=== PATIENT | female | born 1965 | race American Indian/Alaskan Native ===

== ENCOUNTER 2017-05-12 08:50 | Emergency (ER) | payer OTHER ==
[2017-05-12 09:58] LABS: Basophils % (Auto) 1.2 % (0.0-1.8); Eosinophils % (Auto) 2.6 % (0.0-4.3); Hematocrit 44.1 % (30.3-42.9); Hemoglobin 14.1 gm/dl (10.1-14.3); Mean Corpuscular HGB Conc 32 % (30-34); Mean Corpuscular Hemoglobin 29 pg (28-32); Mean Corpuscular Volume 92 fl (79-97); Platelet Count 282 K/mm3 (140-440); Red Cell Distribution Width 13.9 % (13.2-15.2); White Blood Count 8.3 K/mm3 (4.5-11.0)
[2017-05-12 10:06] LABS: Anion Gap 21 mmol/L; BUN/Creatinine Ratio 14.44; Blood Urea Nitrogen 13 mg/dL (7-17); Calcium 9.4 mg/dL (8.4-10.2); Carbon Dioxide 23 mmol/L (22-30); Chloride 101.4 mmol/L (98-107); Glucose 138 mg/dL (65-100); Potassium 3.8 mmol/L (3.6-5.0); Sodium 142 mmol/L (137-145)
--- NOTE | 2017-05-12 10:27 | XRay Report ---
ROUTINE CHEST, TWO VIEWS: HISTORY: Shortness of breath. The trachea, heart, mediastinal contour, lung malik and bony thorax are unremarkable. IMPRESSION: Unremarkable chest x-ray.
[2017-05-12] MEDS ORDERED: XOPENEX IH ONE (11:31)
[2017-05-12] MEDS ORDERED: ATROVENT IH ONE (11:31)
--- NOTE | 2017-05-12 11:36 | Emergency Department Report ---
ED Shortness of Breath HPI - General Chief Complaint: Dyspnea/Respdistress Stated Complaint: SHORTNESS OF BREATH AND HYPERTENSION Time Seen by Provider: 05/12/17 11:23 Source: patient Mode of arrival: Ambulatory Limitations: Physical Limitation - History of Present Illness Initial Comments: 52 years old female morbidly obese history of high blood pressure and bronchitis came today with shortness of breath, being going on for 2 weeks, stated that she is getting worse in the last 2-3 days. Patient denied any chest pain. No fever. admitted to have Cough productive of greenish sputum. MD Complaint: shortness of breath, cough -: Gradual Pain Scale: 5 Improves With: bronchodilators - Related Data Previous Rx's Medication Instructions Recorded Last Taken Type ALBUTEROL Inhaler [ProAir HFA 2 puff IH QID PRN #1 inhalation 05/12/17 Unknown Rx Inhaler] Amoxicillin [Amoxicillin TAB] 875 mg PO BID #14 tablet 05/12/17 Unknown Rx Ondansetron [Zofran Odt] 4 mg PO Q8HR PRN #14 tab.rapdis 05/12/17 Unknown Rx Prednisone [predniSONE 10 mg 10 mg PO .TAPER #1 tab.ds.pk 05/12/17 Unknown Rx (6-Day Pack, 21 Tabs)] traMADol [Ultram 50 MG tab] 50 mg PO Q4HR PRN #14 tablet 05/12/17 Unknown Rx Allergies Allergy/AdvReac Type Severity Reaction Status Date / Time No Known Allergies Allergy Unverified 05/12/17 09:15 ED Review of Systems ROS: Stated complaint: SHORTNESS OF BREATH AND HYPERTENSION Other details as noted in HPI Comment: All other systems reviewed and negative Constitutional: denies: chills, fever Respiratory: cough, shortness of breath, SOB with exertion. denies: orthopnea, SOB at rest Cardiovascular: dyspnea on exertion. denies: chest pain, palpitations, orthopnea Gastrointestinal: denies: abdominal pain, nausea Musculoskeletal: denies: back pain Neurological: denies: headache, weakness, numbness, paresthesias, confusion ED Past Medical Hx - Past Medical History Previous Medical History?: Yes Hx Hypertension: Yes Additional medical history: Knee pain, headache pain - Surgical History Past Surgical History?: Yes Additional Surgical History: Fibroids removed, right fingers surgery - Social History Smoking Status: Former Smoker Substance Use Type: Prescribed - Medications Home Medications: Home Medications Medication Instructions Recorded Confirmed Last Taken Type ALBUTEROL Inhaler [ProAir HFA 2 puff IH QID PRN #1 inhalation 05/12/17 Unknown Rx Inhaler] Amoxicillin [Amoxicillin TAB] 875 mg PO BID #14 tablet 05/12/17 Unknown Rx Ondansetron [Zofran Odt] 4 mg PO Q8HR PRN #14 tab.rapdis 05/12/17 Unknown Rx Prednisone [predniSONE 10 mg 10 mg PO .TAPER #1 tab.ds.pk 05/12/17 Unknown Rx (6-Day Pack, 21 Tabs)] traMADol [Ultram 50 MG tab] 50 mg PO Q4HR PRN #14 tablet 05/12/17 Unknown Rx ED Physical Exam - General Limitations: Physical Limitation General appearance: alert, in no apparent distress - Eye Eye exam: Present: normal appearance - ENT ENT exam: Present: normal exam - Neck Neck exam: Present: normal inspection - Respiratory Respiratory exam: Present: normal lung sounds bilaterally, wheezes, rhonchi, decreased breath sounds, prolonged expiratory. Absent: respiratory distress, rales, stridor, chest wall tenderness, accessory muscle use - Cardiovascular Cardiovascular Exam: Present: tachycardia - GI/Abdominal GI/Abdominal exam: Present: soft. Absent: distended, tenderness, guarding, rebound - Extremities Exam Extremities exam: Present: normal inspection - Back Exam Back exam: Present: normal inspection. Absent: CVA tenderness (R), CVA tenderness (L) - Neurological Exam Neurological exam: Present: alert, oriented X3, CN II-XII intact - Skin Skin exam: Present: warm, normal color ED Course Vital Signs 05/12/17 05/12/17 05/12/17 09:15 11:24 11:41 Temperature 98.2 F Pulse Rate 114 H 81 Pulse Rate [ Bilateral Upper Lobe] Respiratory 22 11 L Rate Respiratory Rate [Bilateral Upper Lobe] Blood Pressure 229/125 175/119 Blood Pressure [Left] O2 Sat by Pulse 92 98 Oximetry 05/12/17 05/12/17 05/12/17 11:43 11:51 12:50 Temperature Pulse Rate 81 84 Pulse Rate [ 85 88 Bilateral Upper Lobe] Respiratory 18 18 Rate Respiratory 20 20 Rate [Bilateral Upper Lobe] Blood Pressure Blood Pressure 175/118 176/103 [Left] O2 Sat by Pulse 100 97 Oximetry 05/12/17 13:28 Temperature Pulse Rate 84 Pulse Rate [ Bilateral Upper Lobe] Respiratory 20 Rate Respiratory Rate [Bilateral Upper Lobe] Blood Pressure Blood Pressure 166/94 [Left] O2 Sat by Pulse 96 Oximetry - Reevaluation(s) Reevaluation #1: 05/12/17 13:36 Patient stated that she is feeling much better. On exam, patient is moving air very good no wheezing no respiratory distress. ED Medical Decision Making - Lab Data Result diagrams: 05/12/17 09:35 05/12/17 09:35 - EKG Data -: EKG Interpreted by Me EKG shows normal: sinus rhythm Rate: normal - EKG Data When compared to previous EKG there are: no significant change Interpretation: no acute changes - Radiology Data Radiology results: report reviewed Chest x-ray was no acute abnormality - Medical Decision Making The patient stated that she is feeling better. I believe this is a acute bronchitis patient improved with bronchodilators chest x-ray did not show any pneumonia I will discharge patient home with his albuterol, prednisone, amoxicillin. Patient asked for pain medicine for chronic knee pain. Critical care attestation.: If time is entered above; I have spent that time in minutes in the direct care of this critically ill patient, excluding procedure time. ED Disposition Clinical Impression: Shortness of breath, Acute bronchitis Disposition: DC-01 TO HOME OR SELFCARE Is pt being admited?: No Condition: Stable Instructions: Acute Bronchitis (ED) Prescriptions: ALBUTEROL Inhaler [ProAir HFA Inhaler] 2 puff IH QID PRN #1 inhalation PRN Reason: Shortness Of Breath Amoxicillin [Amoxicillin TAB] 875 mg PO BID #14 tablet Ondansetron [Zofran Odt] 4 mg PO Q8HR PRN #14 tab.rapdis PRN Reason: Nausea And Vomiting Prednisone [predniSONE 10 mg (6-Day Pack, 21 Tabs)] 10 mg PO .TAPER #1 tab.ds.pk traMADol [Ultram 50 MG tab] 50 mg PO Q4HR PRN #14 tablet PRN Reason: Pain Referrals: PRIMARY CARE,MD [Primary Care Provider] - 3-5 Days
[2017-05-12] MEDS ORDERED: CATAPRES ONE (11:37)
[2017-05-12] MEDS ORDERED: CATAPRES PO ONE (11:40)
[2017-05-12 13:29] VITALS: BP 166/94
== END 2017-05-12 14:00 | disposition home or self-care (01) ==
LOC: ED 08:50
DX: J20.9 Acute bronchitis, unspecified (principal); R06.02 Shortness of breath; I10 Essential (primary) hypertension; Z87.891 Personal history of nicotine dependence
CPT/HCPCS: 36415; 71020; 80048; 83880; 84484; 85025; 93005; 93010; 94640; 96372; 99284; J2930

== ENCOUNTER 2019-02-28 12:57 | Inpatient (IN) | payer OTHER ==
--- NOTE | 2019-02-28 13:20 | Emergency Department Report ---
HPI - General Chief Complaint: Dyspnea/Respdistress Time Seen by Provider: 02/28/19 13:04 - HPI HPI: 54-year-old -[place] female presents to the emergency department by EMS from home with a complaint of a 2 week history of progressively worsening shortness of breath. When EMS got there the patient was 83% oxygen on room air. She was placed on a nonrebreather and went up to about 90%. EMS that the patient has a history of COPD but the patient denies ever being diagnosed with this and just says that she has recurrent bronchitis which also has a history of hypertension and has severe morbid obesity. Patient also says that she had a fall 3 weeks ago causing some right knee pain and the inability to bend her right leg at the knee. She has been using an albuterol inhaler at home for her symptoms without any relief. No recent travel or sick contacts at home. She does not have a primary care physician. She denies any tobacco or illicit drug use. ED Past Medical Hx - Past Medical History Hx Hypertension: Yes Additional medical history: Knee pain, headache pain - Surgical History Additional Surgical History: Fibroids removed, right fingers surgery - Social History Smoking Status: Former Smoker Substance Use Type: Prescribed - Medications Home Medications: Home Medications Medication Instructions Recorded Confirmed Last Taken Type No Known Home Medications [No 02/28/19 02/28/19 Unknown History Reported Home Medications] ED Review of Systems ROS: Stated complaint: COPD/SHINE Other details as noted in HPI Comment: All other systems reviewed and negative Constitutional: denies: chills, fever Eyes: denies: eye pain, vision change ENT: denies: ear pain, throat pain Respiratory: cough, shortness of breath, wheezing Cardiovascular: denies: chest pain, palpitations Gastrointestinal: denies: abdominal pain, vomiting Genitourinary: denies: dysuria, discharge Musculoskeletal: denies: back pain, arthralgia Skin: denies: rash, lesions Neurological: denies: headache, weakness Physical Exam - Physical Exam Physical Exam: GENERAL: The patient is well-developed well-nourished. HENT: Normocephalic. Atraumatic. Patient has moist mucous membranes. EYES: Extraocular motions are intact. Pupils equal reactive to light bilaterally. NECK: Supple. Trachea is midline. CHEST/LUNGS: Coarse breath sounds. There is tachypnea and accessory muscle use. There is conversational dyspnea. There is respiratory distress noted. HEART/CARDIOVASCULAR: Regular. There is moderate to severe tachycardia. There is no murmur. ABDOMEN: Abdomen is soft, nontender. Patient has normal bowel sounds. Severe morbid obesity. SKIN: Skin is warm and dry. NEURO: The patient is awake, alert, and oriented. The patient is cooperative. The patient has no focal neurologic deficits. The patient has normal speech. MUSCULOSKELETAL: There is tenderness to palpation around the right knee. There is no evidence of acute injury. ED Medical Decision Making - Lab Data Result diagrams: 02/28/19 13:12 02/28/19 13:12 - EKG Data -: EKG Interpreted by Me - EKG Data When compared to previous EKG there are: changes noted (previous EKG showed sinus rhythm with right bundle branch block) Interpretation: other (atrial flutter, rate of 150 bpm, left axis deviation, prolonged QTC, curious to the anterior leads, posterior fascicular block) - Radiology Data Radiology results: image reviewed interpreted by me: X-ray of the right knee does not show any fracture, dislocation or any acute process. Chest x-ray shows some pulmonary vascular congestion and basilar pleural effusions. - Medical Decision Making This patient presents to the ED with the complaint of SOB that has been getting worse over two weeks. She presents with some respiratory distress and moderate to severe tachycardia. The patient's EKG appears to show atrial flutter with RVR which is a change from previous. Patient was given some Cardizem and a beta lupillo has also been added to try and control her rate. Patient also had a very elevated d-dimer but we are unable to get a V/Q scan or CT scan secondary to her morbid obesity as she is over the weight limit and size limit. Patient will be placed on anticoagulation secondary to the atrial flutter and RVR. Some Lasix will be started for diuresis. She appears to have some acute CHF with some pleural effusions, pulmonary vascular congestion and a BNP greater than 3000. The patient will be admitted to the hospital for further evaluation, cardiology consultation and has been sent for admission by the hospitalist, Dr. Diaz. - Differential Diagnosis NE, CHF, PE, pneumonia, dysrhythmia Critical Care Time: Yes Critical care time in (mins) excluding proc time.: 35 Critical care attestation.: If time is entered above; I have spent that time in minutes in the direct care of this critically ill patient, excluding procedure time. Critical care time was spent on this patient during her initial evaluation, multiple re- evaluations, ordering an interpretation of labs and imaging, ordering of anticoagulation, consultation with cardiology Critical Care Time: 35 minutes ED Disposition Clinical Impression: Atrial flutter with rapid ventricular response, Morbid obesity, Elevated d- dimer Acute heart failure Qualifiers: Heart failure type: unspecified Qualified Code(s): I50.9 - Heart failure, unspecified Disposition: OP ADMIT IP TO THIS HOSP Is pt being admited?: Yes Condition: Serious Time of Disposition: 19:56
[2019-02-28 13:39] LABS: Basophils # (Auto) 0.1 K/mm3 (0.0-0.1); Eosinophils % (Auto) 0.2 % (0.0-4.3); Hematocrit 51.3 % (30.3-42.9); Hemoglobin 16.3 gm/dl (10.1-14.3); Lymphocytes # (Auto) 1.6 K/mm3 (1.2-5.4); Lymphocytes % (Auto) 14.9 % (13.4-35.0); Mean Corpuscular HGB Conc 32 % (30-34); Mean Corpuscular Volume 96 fl (79-97); Monocytes # (Auto) 0.6 K/mm3 (0.0-0.8); Monocytes % (Auto) 5.7 % (0.0-7.3); Platelet Count 347 K/mm3 (140-440); Red Blood Count 5.36 M/mm3 (3.65-5.03); Red Cell Distribution Width 15.6 % (13.2-15.2)
[2019-02-28 13:52] LABS: INR 1.41 (0.87-1.13)
--- NOTE | 2019-02-28 13:52 | XRay Report ---
CHEST 1 VIEW 1310 INDICATION / CLINICAL INFORMATION: 2 weeks of progressive shortness of breath. COMPARISON: None available. FINDINGS: SUPPORT DEVICES: None HEART / MEDIASTINUM: Cardiomegaly LUNGS / PLEURA: Mildly congested appearance is noted. Right lung field is clear of infiltrates. Incre ased density is seen in the left base which is thought partially due to left pleural effusion and ass ociated atelectatic change but pneumonitis cannot be excluded. No pneumothorax. ADDITIONAL FINDINGS: No significant additional findings. IMPRESSION: 1. Mild congestion 2. Small left pleural effusion and question of left basilar pneumonitis. Clinical correlation and fol low-up are suggested. Signer Name: Ha Rodas MD Signed: 02/28/2019 1:47 PM Workstation Name: [id number]
--- NOTE | 2019-02-28 13:55 | XRay Report ---
Right knee 4 views 1313 INDICATION: Fell 3 weeks ago, knee pain Note: Study was quite difficult due to the patient's size and limited mobility. Many images are under penetrated. One of the oblique views is in nonstandard position. All images are centered slightly bel ow the knee joint. Prominent degenerative changes are seen most affecting the medial and patellofemoral compartments. Pr ominent medial joint space narrowing is seen with genu comparison noted. No obvious fractures or disl ocations are seen as best can be determined on this limited study. IMPRESSION: Difficult study as above no obvious acute abnormalities are seen. Prominent degenerative changes. Signer Name: Ha Rodas MD Signed: 02/28/2019 1:51 PM Workstation Name: [id number]
[2019-02-28 14:23] LABS: Alanine Aminotransferase 26 units/L (7-56); Albumin 3.7 g/dL (3.9-5); BUN/Creatinine Ratio 18; Blood Urea Nitrogen 18 mg/dL (7-17); Calcium 9.6 mg/dL (8.4-10.2); Hemolysis Index 58
[2019-02-28] MEDS ORDERED: CARDIZEM IV ONE ×2 (14:29→15:29)
[2019-02-28] MEDS ORDERED: HEPARIN 10,000 UNITS/10 ML IV ONE (15:30)
--- NOTE | 2019-02-28 15:51 | Consultation ---
History of Present Illness Consult date: 02/28/19 Requesting physician: DARBY LUCERO Consult reason: congestive heart failure History of present illness: The pt is a 54-year-old -[place] female with past medical history of HTN, sleep apnea, noncompliant with CPAP, asthma, morbid obesity, lymphedema. She is previously unknown to our practice. She presented with c/o progressively worsening SOB, [place], orthopnea, BLE swelling. Pt also reports some intermittent palpitations. When EMS got there the patient was 83% oxygen on room air. She was placed on a nonrebreather and went up to about 90%. Pt denies any chest pain, n/v, diaphoresis, dizziness or syncope. Pt states she underwent stress testing several years ago which was normal to her knowledge. She denies any prior cardiac issues, including arrhythmia, CAD, AMI or HF. Initial ECG with apparent atrial flutter RVR HR 150s. DDimer is elevated - pt unable to undergo chest CTA as her weight exceeds the limit for CT. Past History Past Medical History: hypertension, other (sleep apnea) Medications and Allergies Allergies Allergy/AdvReac Type Severity Reaction Status Date / Time No Known Allergies Allergy Unverified 05/12/17 09:15 Home Medications Medication Instructions Recorded Confirmed Last Taken Type No Known Home Medications [No 02/28/19 02/28/19 Unknown History Reported Home Medications] Active Meds: Active Medications Heparin Sodium/Sodium Chloride (Heparin/ 0.45% Nacl-25,000 Unit/500 Ml) 25,000 unit in 500 mls @ 30 mls/hr IV TITR SULAIMAN; Protocol Review of Systems Constitutional: no fever, no chills, no sweats Ears, nose, mouth and throat: no ear pain, no nose pain, no sinus pressure, no sinus pain Cardiovascular: orthopnea, shortness of breath, dyspnea on exertion, paroxysmal nocturnal dyspnea, high blood pressure, leg edema, decreased exercise tolerance, no chest pain, no palpitations, no rapid/irregular heart beat, no edema, no syncope, no lightheadedness Respiratory: shortness of breath, dyspnea on exertion, no cough, no congestion, no wheezing, no pain on inspiration Gastrointestinal: no abdominal pain, no nausea, no vomiting, no diarrhea, no constipation, no change in bowel habits Genitourinary Female: no pelvic pain, no flank pain, no dysuria, no urinary frequency, no urgency Musculoskeletal: no neck stiffness, no neck pain, no shooting arm pain, no arm numbness/tingling, no low back pain, no shooting leg pain Integumentary: no rash, no pruritis, no redness, no sores, no wounds Neurological: no head injury, no paralysis, no weakness, no parathesias, no num bness, no tingling, no seizures, no syncope Psychiatric: no anxiety Endocrine: no cold intolerance, no heat intolerance Hematologic/Lymphatic: no easy bruising, no easy bleeding Allergic/Immunologic: no urticaria, no wheezing Physical Examination Vital Signs Pulse Ox 85 02/28/19 13:04 General appearance: no acute distress HEENT: Positive: PERRL, Normocephaly, Mucus Membranes Moist Neck: Positive: neck supple, trachea midline Cardiac: Positive: S1/S2, Tachycardia Lungs: Positive: Decreased Breath Sounds Neuro: Positive: Grossly Intact Abdomen: Negative: Tender Skin: Negative: Rash Musculoskeletal: No Pain Extremities: Present: +3 Edema (BLE, lymphedema) Results 02/28/19 13:12 02/28/19 13:12 Cardiac Enzymes 02/28/19 Range/Units 13:12 AST 29 (5-40) units/L Coagulation 02/28/19 Range/Units 13:12 PT 16.9 H (12.2-14.9) Sec. INR 1.41 H (0.87-1.13) APTT 24.0 L (24.2-36.6) Sec. CBC 02/28/19 Range/Units 13:12 WBC 10.7 (4.5-11.0) K/mm3 RBC 5.36 H (3.65-5.03) M/mm3 Hgb 16.3 H (10.1-14.3) gm/dl Hct 51.3 H (30.3-42.9) % Plt Count 347 (140-440) K/mm3 Lymph # 1.6 (1.2-5.4) K/mm3 Drew # 0.6 (0.0-0.8) K/mm3 Eos # 0.0 (0.0-0.4) K/mm3 Baso # 0.1 (0.0-0.1) K/mm3 Comprehensive Metabolic Panel 02/28/19 Range/Units 13:12 Sodium 141 (137-145) mmol/L Potassium 4.2 (3.6-5.0) mmol/L Chloride 102.6 (98-107) mmol/L Carbon Dioxide 17 L (22-30) mmol/L BUN 18 H (7-17) mg/dL Creatinine 1.0 (0.7-1.2) mg/dL Glucose 195 H (65-100) mg/dL Calcium 9.6 (8.4-10.2) mg/dL AST 29 (5-40) units/L ALT 26 (7-56) units/L Alkaline Phosphatase 167 H (35-129) units/L Total Protein 7.6 (6.3-8.2) g/dL Albumin 3.7 L (3.9-5) g/dL - Imaging and Cardiology Echo: pending EKG: report reviewed, image reviewed Assessment and Plan Optimize HR. Agree with heparin gtt in setting of elevated DDimer and AFlutter. Obtain thyroid profile. Initiate IV lasix. Obtain echo. Further recs to follow per hospital course. The patient has been seen in conjunction with Dr. Sandoval who agrees with the assessment and plan of care. - Patient Problems (1) Acute heart failure Current Visit: Yes Status: Acute (2) Atrial flutter with rapid ventricular response Current Visit: Yes Status: Acute (3) Elevated d-dimer Current Visit: Yes Status: Acute (4) HTN (hypertension) Current Visit: Yes Status: Chronic (5) Morbid obesity Current Visit: Yes Status: Chronic (6) Lymphedema Current Visit: Yes Status: Acute (7) History of asthma Current Visit: Yes Status: Chronic (8) Sleep apnea Current Visit: Yes Status: Chronic
[2019-02-28] MEDS: LOPRESSOR PO SCH ×2 (16:12→20:18)
[2019-02-28] MEDS: LASIX IV SCH ×2 (16:17→22:44)
[2019-02-28] MEDS: HEPARIN/ 0.45% NACL-25,000 UNIT/500 ML 25,000 UNIT/500 ML BAG IV SCH (16:21)
--- NOTE | 2019-02-28 16:54 | History and Physical Report ---
History of Present Illness Chief complaint: I cant breathe History of present illness: 54 YO Female with MO, Obesity Hypoventilation Syndrome, HTN, KUTRIS noncompliant with CPAP, Lymphedema, Debility, OA, COPD presents to ED for evaluation. Pt states that she has experienced shortness of breath over the past 2 weeks with persistent symptoms over the past 1 week. Pt also reports chest palpitations. Pt reports increased nebulizer use at home without relief. Pt acknowledges dypsnea with exertion, dypsnea at rest, decreased exercise tolerance, Orthopnea/PND. EMS notified, and upon arrival the patient was found to be in distress with a pulse oximetry of 83% on room air. Pt treated with supplemental oxygen and transported to [facility]. Pt seen and evaluated in ED and found to have new onset Atrial Fib with RVR, Acute Hypoxemic Respiratory Failure, as well as symptoms consistent with CHF Decompensation. Cardiology consulted in ED. Pt initiated on therapeutic anticoagulation and admitted to telemetry. No prior admission for review. All listed medication reconciled at time of admission. - Past History Past Medical History: COPD, hypertension, other (sleep apnea,lymphedema) Social history: single. denies: smoking, alcohol abuse, prescription drug abuse Family history: diabetes, hypertension Medications and Allergies Allergies Allergy/AdvReac Type Severity Reaction Status Date / Time No Known Allergies Allergy Unverified 05/12/17 09:15 Home Medications Medication Instructions Recorded Confirmed Last Taken Type No Known Home Medications [No 02/28/19 02/28/19 Unknown History Reported Home Medications] Active Meds: Active Medications Furosemide (Lasix) 40 mg IV BID [facility] Last Admin: 02/28/19 16:17 Dose: 40 mg Documented by: Heparin Sodium/Sodium Chloride (Heparin/ 0.45% Nacl-25,000 Unit/500 Ml) 25,000 unit in 500 mls @ 30 mls/hr IV TITR [facility]; Protocol Last Admin: 02/28/19 16:21 Dose: 1,500 units/hr, 30 mls/hr Documented by: Metoprolol Tartrate (Lopressor) 25 mg PO TID [facility] Last Admin: 02/28/19 16:12 Dose: 25 mg Documented by: Review of Systems Constitutional: no weight loss, no weight gain, no fever, no chills Ears, nose, mouth and throat: no ear pain, no ear discharge, no tinnitis, no decreased hearing, no nose pain Breasts: no change in shape, no swelling, no mass Cardiovascular: orthopnea, palpitations, shortness of breath, dyspnea on exertion, paroxysmal nocturnal dyspnea, decreased exercise tolerance, no claudication, no phlebitis Respiratory: no cough, no cough with sputum, no excessive sputum, no hemoptysis Gastrointestinal: no nausea, no vomiting, no diarrhea Genitourinary Female: no pelvic pain, no flank pain, no menorrhagia, no dysuria, no urinary frequency, no urgency Rectal: no pain, no incontinence, no bleeding Musculoskeletal: no neck stiffness, no neck pain, no shooting arm pain, no arm numbness/tingling, no low back pain Integumentary: no rash, no pruritis, no redness, no wounds, no jaundice Neurological: no transient paralysis, no paralysis, no weakness, no parathesias, no numbness, no tingling, no seizures Psychiatric: no anxiety, no memory loss, no change in sleep habits, no change in libido, no suicidal ideation, no disorientation Endocrine: no cold intolerance, no heat intolerance, no polyphagia, no excessive thirst, no polyuria, no nocturia Hematologic/Lymphatic: lymphedema, no easy bruising, no easy bleeding Allergic/Immunologic: no urticaria, no wheezing, no persistent infections Exam - Constitutional Vitals: Temp Pulse Resp BP Pulse Ox 98.6 F 150 H 31 H 142/90 91 02/28/19 13:07 02/28/19 16:12 02/28/19 14:16 02/28/19 16:11 02/28/19 14:16 General appearance: Present: mild distress, obese - EENT Eyes: Present: PERRL ENT: hearing intact, clear oral mucosa - Neck Neck: Present: supple, normal ROM - Respiratory Respiratory effort: labored Respiratory: bilateral: diminished, rhonchi - Cardiovascular Rhythm: irregularly irregular - Extremities Extremities: pulses symmetrical, No edema Extremity abnormal: edema - Abdominal General gastrointestinal: Present: soft, non-tender, non-distended, normal bowel sounds Female genitourinary: Present: normal - Integumentary Integumentary: Present: clear, dry - Musculoskeletal Musculoskeletal: generalized weakness - Psychiatric Psychiatric: appropriate mood/affect, intact judgment & insight, memory intact - Neurologic Neurologic: CNII-XII intact, moves all extremities, no gait normal Results - Labs CBC & Chem 7: 03/01/19 05:26 03/01/19 05:26 Labs: Abnormal lab results 02/28/19 02/28/19 02/28/19 Range/Units 13:12 13:12 13:12 RBC 5.36 H (3.65-5.03) M/mm3 Hgb 16.3 H (10.1-14.3) gm/dl Hct 51.3 H (30.3-42.9) % RDW 15.6 H (13.2-15.2) % Seg Neutrophils % 78.2 H (40.0-70.0) % Seg Neutrophils # 8.4 H (1.8-7.7) K/mm3 PT 16.9 H (12.2-14.9) Sec. INR 1.41 H (0.87-1.13) APTT 24.0 L (24.2-36.6) Sec. D-Dimer (0-234) ng/mlDDU Carbon Dioxide 17 L (22-30) mmol/L BUN 18 H (7-17) mg/dL Glucose 195 H (65-100) mg/dL Total Bilirubin 1.60 H (0.1-1.2) mg/dL Alkaline Phosphatase 167 H (35-129) units/L NT-Pro-B Natriuret Pep 3618 H (0-900) pg/mL Albumin 3.7 L (3.9-5) g/dL 02/28/19 Range/Units 13:15 RBC (3.65-5.03) M/mm3 Hgb (10.1-14.3) gm/dl Hct (30.3-42.9) % RDW (13.2-15.2) % Seg Neutrophils % (40.0-70.0) % Seg Neutrophils # (1.8-7.7) K/mm3 PT (12.2-14.9) Sec. INR (0.87-1.13) APTT (24.2-36.6) Sec. D-Dimer 7368.96 H (0-234) ng/mlDDU Carbon Dioxide (22-30) mmol/L BUN (7-17) mg/dL Glucose (65-100) mg/dL Total Bilirubin (0.1-1.2) mg/dL Alkaline Phosphatase (35-129) units/L NT-Pro-B Natriuret Pep (0-900) pg/mL Albumin (3.9-5) g/dL Assessment and Plan - Patient Problems (1) CHF (congestive heart failure) Current Visit: Yes Status: Acute Qualifiers: Heart failure chronicity: acute on chronic Plan to address problem: Admit to telemetry, Echo, Cardiology consulted in ED, Strict I/O, daily weight, monitor uop q shift, afterload reduction, supplemental oxygen, thyroid panel, magnesium, (2) Atrial flutter with rapid ventricular response Current Visit: Yes Status: Acute Plan to address problem: Heparin drip protocol, cardiology consulted, cardizem for rate control, echo, th yroid panel, (3) Acute respiratory failure with hypoxemia Current Visit: Yes Status: Acute Plan to address problem: Supplemental oxygen, nebulizer therapy, NIPPV as clinically indicated, pulse oximetry, chest x ray, d dimer. (4) Obesity hypoventilation syndrome Current Visit: Yes Status: Acute Plan to address problem: Supplemental oxygen, nebulizer therapy, NIPPV as clinically indicated, balanced diet, increased physical activity at discharge, pulmonary toilet, incentive spirometry (5) Lymphedema Current Visit: Yes Status: Chronic Plan to address problem: supportive care, elevate BLE while in bed. (6) HTN (hypertension) Current Visit: Yes Status: Chronic Qualifiers: Hypertension type: essential hypertension Qualified Code(s): I10 - Essential (primary) hypertension Plan to address problem: Monitor bp q shift, IV hydralazine prn, resume prehospital antihypertensive therapy, continue medical management (7) Morbid obesity Current Visit: Yes Status: Chronic Plan to address problem: Balanced diet, increased physical activity at discharge, outpatient bariatric surgery f/u (8) Sleep apnea Current Visit: Yes Status: Chronic Qualifiers: Sleep apnea type: unspecified type Qualified Code(s): G47.30 - Sleep apnea, unspecified Plan to address problem: NIPPV QHS, and PRN, supplemental oxygen, supportive care. (9) DVT prophylaxis Current Visit: Yes Status: Acute Plan to address problem: SCD to BLE while in bed, therapeutic anticoagulation
[2019-02-28] MEDS ORDERED: ZOFRAN IV PRN (17:01)
[2019-02-28] MEDS ORDERED: SODIUM CHLORIDE FLUSH SYRINGE 10 ML IV PRN (17:01)
[2019-02-28 18:24] LABS: Bacteria,Urine 1+ /HPF (Negative); Bilirubin,Urine NEG (Negative); Blood,Urine SM (Negative); Color,Urine Yellow (Yellow); Hyaline Casts,Urine 1 /LPF; Mucus,Urine FEW /HPF; Protein,Urine <15 mg/dL mg/dL (Negative); Urobilinogen,Urine < 2.0 mg/dL (<2.0); WBC,Urine < 1.0 /HPF (0.0-6.0)
[2019-02-28] MEDS ORDERED: LOPRESSOR ONE (20:15)
[2019-02-28] MEDS ORDERED: TYLENOL ONE (20:15)
[2019-02-28] MEDS: TYLENOL PO PRN (20:21)
[2019-02-28] MEDS: CARDIZEM PO SCH (21:45)
[2019-02-28] MEDS: SODIUM CHLORIDE FLUSH SYRINGE 10 ML IV SCH (21:46)
[2019-02-28 22:23] LABS: Free T4 (Free Thyroxine) 1.26 ng/dL (0.76-1.46)
[2019-02-28] MEDS ORDERED: LASIX ONE (22:32)
[2019-03-01] MEDS: CARDIZEM/D5W 100MG/100ML 100 MG/100 ML BAG IV SCH ×4 (00:31→22:52)
[2019-03-01] MEDS: CARDIZEM PO SCH ×3 (00:32→12:01)
--- NOTE | 2019-03-01 04:39 | Event Note ---
atrial flutter w/ rvr unresponsive to oral cardizem start cardizem gtt, upgrade to icu cc consult
[2019-03-01 05:45] LABS: Basophils # (Auto) 0.1 K/mm3 (0.0-0.1); Eosinophils # (Auto) 0.1 K/mm3 (0.0-0.4); Eosinophils % (Auto) 0.7 % (0.0-4.3); Hematocrit 44.7 % (30.3-42.9); Hemoglobin 14.5 gm/dl (10.1-14.3); Lymphocytes # (Auto) 1.6 K/mm3 (1.2-5.4); Lymphocytes % (Auto) 16.9 % (13.4-35.0); Mean Corpuscular HGB Conc 32 % (30-34); Mean Corpuscular Volume 95 fl (79-97); Monocytes # (Auto) 0.9 K/mm3 (0.0-0.8); Platelet Count 275 K/mm3 (140-440); Red Blood Count 4.72 M/mm3 (3.65-5.03); Red Cell Distribution Width 15.1 % (13.2-15.2)
[2019-03-01 06:07] LABS: Blood Urea Nitrogen 18 mg/dL (7-17)
[2019-03-01 06:08] LABS: Alanine Aminotransferase 21 units/L (7-56); Albumin 2.8 g/dL (3.9-5); BUN/Creatinine Ratio 20; Calcium 8.8 mg/dL (8.4-10.2); Hemolysis Index 74
--- NOTE | 2019-03-01 07:50 | Consultation ---
History of Present Illness Consult date: 03/01/19 Requesting physician: CHHAYA SARAVIA History of present illness: 54 YO Female with MO, Obesity Hypoventilation Syndrome, HTN, KURTIS noncompliant with CPAP, Lymphedema, Debility, OA, COPD presents to ED for evaluation. Pt states that she has experienced shortness of breath over the past 2 weeks with persistent symptoms over the past 1 week. Pt also reports chest palpitations. Pt reports increased nebulizer use at home without relief. Pt acknowledges dypsnea with exertion, dypsnea at rest, decreased exercise tolerance, Orthopnea/PND. EMS notified, and upon arrival the patient was found to be in distress with a pulse oximetry of 83% on room air. Pt treated with supplemental oxygen and transported to [facility]. Pt seen and evaluated in ED and found to have new onset Atrial Fib with RVR, Acute Hypoxemic Respiratory Failure, as well as symptoms consistent with CHF Decompensation. Cardiology consulted in ED. Pt initiated on therapeutic anticoagulation and admitted to telemetry. I have been consulted for acute hypoxic respiratory failure. Thank you. Patient was seen and examined. Vitals, labs, medications, chart and imaging were reviewed. ROS: Stated complaint: COPD/SHINE Other details as noted in HPI Comment: All other systems reviewed and negative Constitutional: denies: chills, fever Eyes: denies: eye pain, vision change ENT: denies: ear pain, throat pain Respiratory: cough, shortness of breath, wheezing Cardiovascular: denies: chest pain, palpitations Gastrointestinal: denies: abdominal pain, vomiting Genitourinary: denies: dysuria, discharge Musculoskeletal: denies: back pain, arthralgia Skin: denies: rash, lesions Neurological: denies: headache, weakness Past History Past Medical History: COPD, hypertension, other (sleep apnea,lymphedema) Social history: single. denies: smoking, alcohol abuse, prescription drug abuse Family history: diabetes, hypertension Medications and Allergies Allergies Allergy/AdvReac Type Severity Reaction Status Date / Time No Known Allergies Allergy Unverified 05/12/17 09:15 Home Medications Medication Instructions Recorded Confirmed Last Taken Type No Known Home Medications [No 02/28/19 02/28/19 Unknown History Reported Home Medications] Active Meds: Active Medications Acetaminophen (Tylenol) 650 mg PO Q4H PRN PRN Reason: Pain MILD(1-3)/Fever >100.5/[place] Last Admin: 02/28/19 20:21 Dose: 650 mg Documented by: Diltiazem HCl (Cardizem) 30 mg PO Q6HR [facility] Last Admin: 03/01/19 06:15 Dose: Not Given Documented by: Furosemide (Lasix) 40 mg IV BID [facility] Last Admin: 02/28/19 22:44 Dose: 40 mg Documented by: Heparin Sodium/Sodium Chloride (Heparin/ 0.45% Nacl-25,000 Unit/500 Ml) 25,000 unit in 500 mls @ 30 mls/hr IV TITR [facility]; Protocol Last Admin: 02/28/19 16:21 Dose: 1,500 units/hr, 30 mls/hr Documented by: Diltiazem HCl (Cardizem/D5w 100mg/100ml) 100 mg in 100 mls @ 5 mls/hr IV TITR [facility]; Protocol Last Titration: 03/01/19 06:43 Dose: 12.5 mg/hr, 12.5 mls/hr Documented by: Metoprolol Tartrate (Lopressor) 25 mg PO TID [facility] Last Admin: 02/28/19 20:18 Dose: 25 mg Documented by: Ondansetron HCl (Zofran) 4 mg IV Q8H PRN PRN Reason: Nausea And Vomiting Sodium Chloride (Sodium Chloride Flush Syringe 10 Ml) 10 ml IV BID [facility] Last Admin: 02/28/19 21:46 Dose: 10 ml Documented by: Sodium Chloride (Sodium Chloride Flush Syringe 10 Ml) 10 ml IV PRN PRN PRN Reason: LINE FLUSH Physical Examination Vital signs: Vital Signs Pulse Ox 85 02/28/19 13:04 Constitutional: appears uncomfortable, other on BIPAP (middle aged morbidly obese AAF, normocephalic and atraumatic with incresaed resp effort at rest) Eyes: non-icteric ENT: oropharynx moist, other (Mallampati 4) Neck: supple, no lymphadenopathy, no JVD, other (large neck circumference) Effort: mildly labored Ascultation: Bilateral: clear, diminished breath sounds Percussion: Bilateral: not dull Cardiovascular: irregular rhythm, other (No R/M) Gastrointestinal: normoactive bowel sounds, soft, non-tender, non-distended Integumentary: rash (stasis dermatitis to lower extremities) Extremities: no cyanosis, pulses normal, no ischemia or petechiae, edema (1+) Neurologic: normal mental status, non-focal exam, pupils equal and round, motor strength normal and Psychiatric: mood appropriate, affect normal Results - Laboratory Findings CBC and BMP: 03/06/19 06:05 03/06/19 06:05 PT/INR, D-dimer PT 16.9 Sec. (12.2-14.9) H 02/28/19 13:12 INR 1.41 (0.87-1.13) H 02/28/19 13:12 7368.96 ng/mlDDU (0-234) H 02/28/19 13:15 Abnormal lab findings: Abnormal Labs 02/28/19 02/28/19 02/28/19 13:12 13:12 13:12 RBC 5.36 H Hgb 16.3 H Hct 51.3 H RDW 15.6 H [place] % (Auto) [place] # Seg Neutrophils % 78.2 H Seg Neutrophils # 8.4 H PT 16.9 H INR 1.41 H APTT 24.0 L D-Dimer Carbon Dioxide 17 L BUN 18 H Glucose 195 H Total Bilirubin 1.60 H Alkaline Phosphatase 167 H NT-Pro-B Natriuret Pep 3618 H Albumin 3.7 L 02/28/19 03/01/19 03/01/19 13:15 05:26 05:26 RBC Hgb 14.5 H Hct 44.7 H D RDW [place] % (Auto) 9.0 H [place] # 0.9 H Seg Neutrophils % 72.4 H Seg Neutrophils # PT INR APTT D-Dimer 7368.96 H Carbon Dioxide BUN 18 H Glucose 118 H Total Bilirubin Alkaline Phosphatase NT-Pro-B Natriuret Pep Albumin 2.8 L Assessment and Plan Acute Hypoxemic Respiratory Failure on NIPPV Atrial Fib/flutter with RVR Acute CHF exacerbation (New Onset HFrEF) KURTIS/OHS Extreme Obesity Hyperglycemia HTN Left pleural effusion - continue supplemental oxygen as needed to keep O2 sat's > 90% - continue IV heparin drip for anticoagulation re: A-fib - continue Amiodarone for rate & rhythm control - continue BIPAP scheduled qhs with prn daytime use - continue diuresis with furosemide (currently 40 mg IV bid) -Monitor renal function and hemodynamics closely while on diuretic therapy - conservative management for effusion, follow up CXR to document resolution - optimize heart failure measures per cardiology team (on ARB, aldactone, metoprolol) -Transthoracic echocardiogram to evaluate LVEF and for pulmonary HTN - weight loss and lifestyle modifications counselled, may benefit from evaluation for surgical weight loss - follow electrolytes and correct as necessary - VTE prophylaxis -Mobility for pressure ulcer prevention - Schneider catheter in this extremely obese patient with need fro accurate intake and output monitoring. Will re-assess ongoing need for schneider catheter in [facility] morning - flu and pneumovax addressed per protocol CONDITION: CRITICAL PROGNOSIS: GUARDED CODE STATUS: FULL CODE The high probability of a clinically significant, sudden or life-threatening deterioration of the cardiac, respiratory systems required my full and direct attention, intervention and personal management. The aggregate critical care time was [45] minutes without overlap. Time includes spent on; [x] Data Review and interpretation [x] Patient assessment and monitoring of vital signs [x] Documentation [x] Medication orders and management
[2019-03-01] MEDS ORDERED: LOPRESSOR ONE (08:37)
[2019-03-01] MEDS: LOPRESSOR PO SCH ×3 (08:38→19:29)
[2019-03-01] MEDS: LASIX IV SCH ×2 (10:10→23:33)
[2019-03-01] MEDS: HEPARIN/ 0.45% NACL-25,000 UNIT/500 ML 25,000 UNIT/500 ML BAG IV SCH (10:10)
[2019-03-01] MEDS: SODIUM CHLORIDE FLUSH SYRINGE 10 ML IV SCH ×2 (10:11→23:33)
--- NOTE | 2019-03-01 11:14 | Progress Note ---
Assessment and Plan Cont present cardiac management, wean cardizem gtt off as HR permits. Agree with heparin gtt in setting of elevated DDimer and AFlutter. Await echo. Further recs to follow per hospital course. The patient has been seen in conjunction with Dr. Sandoval who agrees with the assessment and plan of care. - Patient Problems (1) Acute heart failure Current Visit: Yes Status: Acute Qualifiers: Heart failure type: unspecified Qualified Code(s): I50.9 - Heart failure, unspecified (2) Atrial flutter with rapid ventricular response Current Visit: Yes Status: Acute (3) Elevated d-dimer Current Visit: Yes Status: Acute (4) HTN (hypertension) Current Visit: Yes Status: Chronic Qualifiers: Hypertension type: essential hypertension Qualified Code(s): I10 - Essential (primary) hypertension (5) Morbid obesity Current Visit: Yes Status: Chronic (6) Lymphedema Current Visit: Yes Status: Chronic (7) History of asthma Current Visit: Yes Status: Chronic (8) Sleep apnea Current Visit: Yes Status: Chronic Qualifiers: Sleep apnea type: unspecified type Qualified Code(s): G47.30 - Sleep apnea, unspecified Subjective Date of service: 03/01/19 Principal diagnosis: AFlutter; HF Interval history: pt resting in bed, states she is feeling a little better. remains in Aflutter with HR 130s, on cardizem and heparin gtt. Objective Last Vital Signs Temp 97.5 F L 03/01/19 08:00 Pulse 124 H 03/01/19 10:15 Resp 23 03/01/19 10:15 BP 130/97 03/01/19 10:15 Pulse Ox 90 03/01/19 10:15 - Physical Examination General: No Apparent Distress HEENT: Positive: PERRL, Normocephaly, Mucus Membranes Moist Neck: Positive: neck supple, trachea midline Cardiac: Positive: irregularly irregular, S1/S2, Tachycardia Lungs: Positive: Decreased Breath Sounds Neuro: Positive: Grossly Intact Abdomen: Negative: Tender Skin: Negative: Rash Musculoskeletal: No Pain Extremities: Present: +3 Edema (BLE, lymphedema) - Labs and Meds Cardiac Enzymes 02/28/19 03/01/19 Range/Units 13:12 05:26 AST 29 23 (5-40) units/L Coagulation 02/28/19 Range/Units 13:12 PT 16.9 H (12.2-14.9) Sec. INR 1.41 H (0.87-1.13) APTT 24.0 L (24.2-36.6) Sec. CBC 02/28/19 03/01/19 Range/Units 13:12 05:26 WBC 10.7 9.5 (4.5-11.0) K/mm3 RBC 5.36 H 4.72 (3.65-5.03) M/mm3 Hgb 16.3 H 14.5 H (10.1-14.3) gm/dl Hct 51.3 H 44.7 H D (30.3-42.9) % Plt Count 347 275 (140-440) K/mm3 Lymph # 1.6 1.6 (1.2-5.4) K/mm3 [place] # 0.6 0.9 H (0.0-0.8) K/mm3 Eos # 0.0 0.1 (0.0-0.4) K/mm3 Baso # 0.1 0.1 (0.0-0.1) K/mm3 Comprehensive Metabolic Panel 02/28/19 03/01/19 Range/Units 13:12 05:26 Sodium 141 139 (137-145) mmol/L Potassium 4.2 4.1 (3.6-5.0) mmol/L Chloride 102.6 104.2 (98-107) mmol/L Carbon Dioxide 17 L 23 (22-30) mmol/L BUN 18 H 18 H (7-17) mg/dL Creatinine 1.0 0.9 (0.7-1.2) mg/dL Glucose 195 H 118 H (65-100) mg/dL Calcium 9.6 8.8 (8.4-10.2) mg/dL AST 29 23 (5-40) units/L ALT 26 21 (7-56) units/L Alkaline Phosphatase 167 H 128 (35-129) units/L Total Protein 7.6 6.4 (6.3-8.2) g/dL Albumin 3.7 L 2.8 L (3.9-5) g/dL - Imaging and Cardiology EKG: report reviewed, image reviewed Echo: pending
[2019-03-01] MEDS: ZITHROMAX 500 MG in NACL 0.9% 250ML 250 ML IV SCH (11:42)
--- NOTE | 2019-03-01 12:16 | Progress Note ---
Assessment and Plan - Patient Problems (1) Acute respiratory failure with hypoxemia Current Visit: Yes Status: Acute Plan to address problem: Patient with acute respiratory failure with hypoxemia multifactorial secondary to COPD, obesity hypoinflation syndrome and sleep apnea noncompliant with CPAP. We'll continue nebulizers, steroids, empiric antibiotic coverage as well. We need to rule out pulmonary embolism when stable. (2) Atrial flutter with rapid ventricular response Current Visit: Yes Status: Acute Plan to address problem: Patient on Cardizem drip has responded well with rate remains irregular. On heparin drip for anticoagulation. Heart rate 120. We'll discontinue by mouth Cardizem continue IV Cardizem. We'll change to by mouth when rate better controlled. Echocardiogram to rule out structural heart disease. Most likely etiology hypoxemia. Magnesium stable. Patient denies caffeine no energy drinks thyroid studies pending. (3) CHF (congestive heart failure) Current Visit: Yes Status: Acute Qualifiers: Heart failure chronicity: acute on chronic Plan to address problem: We'll treat with IV diuretics. Will obtain echocardiogram to establish left ventricular function. Oxygen afterload outreach representative cardiology consult. (4) Obesity hypoventilation syndrome Current Visit: Yes Status: Acute Plan to address problem: Suggest weight loss options including but not limited to bariatric surgery. (5) HTN (hypertension) Current Visit: Yes Status: Chronic Qualifiers: Hypertension type: essential hypertension Qualified Code(s): I10 - Essential (primary) hypertension Plan to address problem: Present patient has fair control of blood pressure continue current antihypertensives. (6) Edema Current Visit: Yes Status: Acute Plan to address problem: [place] with marked lymphedema. Difficult to raise leg because of level of obesity and lymphedema. Will benefit from outpatient lymphedema clinic. History Interval history: Patient 54-year-old female with a past history of obesity hypoventilation syndrome, morbid obesity, noncompliance with CPAP, debility, osteoarthritis, COPD arisen presented with shortness of breath 2 weeks placed on nebulizers with minimal relief. Hospital course complicated by new onset atrial fib rillation. Patient was placed on by mouth Cardizem without any response. Change to IV Cardizem and heparin drip. Patient at present resting comfortably with oxygen. No shortness of breath no chest pain. Patient did have knee pain that she's had continuous with negative radiograph. Patient had fall 3 weeks ago but pain is been over 10 years. Patient also has marked debility from obesity. Hospitalist Physical - Constitutional Vitals: Temp Pulse Resp BP Pulse Ox 98.3 F 124 H 18 127/102 93 03/01/19 11:54 03/01/19 11:46 03/01/19 11:46 03/01/19 11:46 03/01/19 11:30 General appearance: Present: no acute distress, obese - EENT Eyes: Present: PERRL, EOM intact ENT: hearing intact, clear oral mucosa, dentition normal, no oropharyngeal erythema, no poor dentition, no thrush, no ulcerations - Neck Neck: Present: supple, normal ROM - Respiratory Respiratory effort: normal Respiratory: bilateral: diminished - Cardiovascular Rhythm: other (tachycardia now in the 120s on 15 mics of cardiac exam.) - Extremities Extremities: no ischemia, pulses intact Extremity abnormal: edema, other (no tinnitus at the knee marked lymphedema difficult to appreciate anatomy.) - Abdominal General gastrointestinal: soft, non-tender, non-distended, normal bowel sounds, no hepatomegaly, no splenomegaly - Integumentary Integumentary: Present: clear, warm, dry. Absent: jaundice, rash, clammy - Psychiatric Psychiatric: appropriate mood/affect, intact judgment & insight, memory intact - Neurologic Neurologic: CNII-XII intact, focal deficits, other (essentially bed bound from edema and obesity.) Results - Labs CBC & Chem 7: 03/01/19 05:26 03/01/19 05:26 Labs: Laboratory Last Values WBC 9.5 K/mm3 (4.5-11.0) 03/01/19 05:26 RBC 4.72 M/mm3 (3.65-5.03) 03/01/19 05:26 Hgb 14.5 gm/dl (10.1-14.3) H 03/01/19 05:26 Hct 44.7 % (30.3-42.9) H D 03/01/19 05:26 MCV 95 fl (79-97) 03/01/19 05:26 MCH 31 pg (28-32) 03/01/19 05:26 MCHC 32 % (30-34) 03/01/19 05:26 RDW 15.1 % (13.2-15.2) 03/01/19 05:26 Plt Count 275 K/mm3 (140-440) 03/01/19 05:26 Lymph % (Auto) 16.9 % (13.4-35.0) 03/01/19 05:26 [place] % (Auto) 9.0 % (0.0-7.3) H 03/01/19 05:26 Eos % (Auto) 0.7 % (0.0-4.3) 03/01/19 05:26 Baso % (Auto) 1.0 % (0.0-1.8) 03/01/19 05:26 Lymph # 1.6 K/mm3 (1.2-5.4) 03/01/19 05:26 [place] # 0.9 K/mm3 (0.0-0.8) H 03/01/19 05:26 Eos # 0.1 K/mm3 (0.0-0.4) 03/01/19 05:26 Baso # 0.1 K/mm3 (0.0-0.1) 03/01/19 05:26 Seg Neutrophils % 72.4 % (40.0-70.0) H 03/01/19 05:26 Seg Neutrophils # 6.9 K/mm3 (1.8-7.7) 03/01/19 05:26 PT 16.9 Sec. (12.2-14.9) H 02/28/19 13:12 INR 1.41 (0.87-1.13) H 02/28/19 13:12 APTT 24.0 Sec. (24.2-36.6) L 02/28/19 13:12 7368.96 ng/mlDDU (0-234) H 02/28/19 13:15 Heparin Anti-Xa Level 0.61 U.I./ml (0.3-0.7) 02/28/19 21:45 POC ABG pH 7.368 (7.35-7.45) 03/01/19 09:46 POC ABG pCO2 43.1 (35-45) 03/01/19 09:46 POC ABG pO2 95 (80-105) 03/01/19 09:46 POC ABG HCO3 24.8 (22-26 mml/L) 03/01/19 09:46 POC ABG Total CO2 26 (23-27mmol/L) 03/01/19 09:46 POC ABG O2 Sat 97 03/01/19 09:46 POC ABG Base Excess 0 ((-2) - (+3)mmol/L) 03/01/19 09:46 50 % 03/01/19 09:46 Sodium 139 mmol/L (137-145) 03/01/19 05:26 Potassium 4.1 mmol/L (3.6-5.0) 03/01/19 05:26 Chloride 104.2 mmol/L (98-107) 03/01/19 05:26 Carbon Dioxide 23 mmol/L (22-30) 03/01/19 05:26 16 mmol/L 03/01/19 05:26 BUN 18 mg/dL (7-17) H 03/01/19 05:26 0.9 mg/dL (0.7-1.2) 03/01/19 05:26 Estimated GFR > 60 ml/min 03/01/19 05:26 20 % 03/01/19 05:26 Glucose 118 mg/dL (65-100) H 03/01/19 05:26 Calcium 8.8 mg/dL (8.4-10.2) 03/01/19 05:26 Magnesium 1.80 mg/dL (1.7-2.3) 02/28/19 21:38 1.00 mg/dL (0.1-1.2) 03/01/19 05:26 AST 23 units/L (5-40) 03/01/19 05:26 ALT 21 units/L (7-56) 03/01/19 05:26 128 units/L (35-129) 03/01/19 05:26 < 0.010 ng/mL (0.00-0.029) 02/28/19 21:38 NT-Pro-B Natriuret Pep 3618 pg/mL (0-900) H 02/28/19 13:12 6.4 g/dL (6.3-8.2) 03/01/19 05:26 2.8 g/dL (3.9-5) L 03/01/19 05:26 0.8 % 03/01/19 05:26 TSH 2.830 mlU/mL (0.270-4.200) 02/28/19 21:38 TSH 2.870 mlU/mL (0.270-4.200) 02/28/19 21:38 Free T4 1.24 ng/dL (0.76-1.46) 02/28/19 21:38 Free T4 1.26 ng/dL (0.76-1.46) 02/28/19 21:38 Yellow (Yellow) 02/28/19 18:00 Slightly-cloudy (Clear) 02/28/19 18:00 5.0 (5.0-7.0) 02/28/19 18:00 Ur Specific [place] 1.008 (1.003-1.030) 02/28/19 18:00 <15 mg/dl mg/dL (Negative) 02/28/19 18:00 Neg mg/dL (Negative) 02/28/19 18:00 Neg mg/dL (Negative) 02/28/19 18:00 Sm (Negative) 02/28/19 18:00 Neg (Negative) 02/28/19 18:00 Neg (Negative) 02/28/19 18:00 < 2.0 mg/dL (<2.0) 02/28/19 18:00 Ur Leukocyte Esterase Neg (Negative) 02/28/19 18:00 < 1.0 /HPF (0.0-6.0) 02/28/19 18:00 1.0 /HPF (0.0-6.0) 02/28/19 18:00 U Epithel Cells (Auto) 1.0 /HPF (0-13.0) 02/28/19 18:00 1+ /HPF (Negative) 02/28/19 18:00 Hyaline Casts 1 /LPF 02/28/19 18:00 Few /HPF 02/28/19 18:00 - Imaging and Cardiology EKG: image reviewed Chest x-ray: image reviewed Active Medications - Current Medications Current Medications: Generic Name Dose Route Start Last Admin Trade Name Freq PRN Reason Stop Dose Admin Acetaminophen 650 mg 02/28/19 17:01 02/28/19 20:21 Tylenol PO 650 mg Q4H PRN Administration Pain MILD(1-3)/Fever >100.5/TAYLOR Diltiazem HCl 30 mg 03/01/19 00:00 03/01/19 12:01 Cardizem PO Not Given Q6HR SULAIMAN Furosemide 40 mg 02/28/19 16:00 03/01/19 10:10 Lasix IV 40 mg BID SULAIMAN Administration Heparin Sodium/Sodium Chloride 25,000 unit in 500 mls @ 30 mls/hr 02/28/19 16:00 03/01/19 10:10 Heparin/ 0.45% Nacl-25,000 Unit/500 Ml IV 1,500 units/hr TITR SULAIMAN 30 mls/hr Administration Protocol 1,500 UNITS/HR Diltiazem HCl 100 mg in 100 mls @ 5 mls/hr 02/28/19 23:55 03/01/19 10:10 Cardizem/D5w 100mg/100ml IV 15 mg/hr TITR SULAIMAN 15 mls/hr Administration Protocol 5 MG/HR Azithromycin 500 mg/ Sodium 250 mls @ 250 mls/hr 03/01/19 10:00 03/01/19 11:42 Chloride IV 03/05/19 23:59 250 mls/hr Q24HR SULAIMAN Administration Protocol Metoprolol Tartrate 25 mg 02/28/19 15:53 03/01/19 08:38 Lopressor PO 25 mg TID SULAIMAN Administration Ondansetron HCl 4 mg 02/28/19 17:01 Zofran IV Q8H PRN Nausea And Vomiting Sodium Chloride 10 ml 02/28/19 22:00 03/01/19 10:11 Sodium Chloride Flush Syringe 10 Ml IV 10 ml BID SULAIMAN Administration Sodium Chloride 10 ml 02/28/19 17:01 Sodium Chloride Flush Syringe 10 Ml IV PRN PRN LINE FLUSH
[2019-03-01] MEDS ORDERED: HEPARIN IV ONE (15:15)
[2019-03-01] MEDS ORDERED: HEPARIN 10,000 UNITS/10 ML IV ONE (15:30)
[2019-03-02] MEDS: HEPARIN/ 0.45% NACL-25,000 UNIT/500 ML 25,000 UNIT/500 ML BAG IV SCH ×2 (00:54→15:00)
[2019-03-02] MEDS: CARDIZEM/D5W 100MG/100ML 100 MG/100 ML BAG IV SCH (05:54)
[2019-03-02] MEDS: LOPRESSOR PO SCH ×2 (08:00→22:35)
[2019-03-02] MEDS ORDERED: CORDARONE 900 MG in D5W 482 ML IV SCH (10:00)
[2019-03-02] MEDS: COZAAR PO SCH (10:00)
[2019-03-02] MEDS ORDERED: LOPRESSOR PO ONE (10:00)
[2019-03-02] MEDS: ALDACTONE PO SCH (10:00)
[2019-03-02] MEDS: ZITHROMAX 500 MG in NACL 0.9% 250ML 250 ML IV SCH (10:00)
[2019-03-02] MEDS ORDERED: CORDARONE 150 MG in D5W 97 ML IV ONE (10:00)
[2019-03-02] MEDS: LASIX IV SCH ×2 (10:00→22:35)
[2019-03-02] MEDS: SODIUM CHLORIDE FLUSH SYRINGE 10 ML IV SCH ×2 (10:00→22:37)
--- NOTE | 2019-03-02 11:18 | Progress Note ---
Assessment and Plan Atrial Fib/flutter with RVR Acute CHF exacerbation (New Onset HFrEF) Acute Hypoxemic Respiratory Failure KURTIS/OHS Morbid Obesity Hyperglycemia HTN Left pleural effusion - continue supplemental oxygen as needed to keep O2 sat's > 90% - continue IV heparin drip for anticoagulation re: A-fib - continue Amiodarone for rate & rhythm control - continue BIPAP scheduled qhs with prn daytime use - continue diuresis with lasix (currently 40 mg IV bid) - conservative management for effusion (hopefully resolves with diuresis) - optimize CHF management per cardiology team (on ARB, aldactone, metoprolol) - weight loss counseled - follow electrolytes and corect as necessary - added GI prophylaxis - continue other care per attending / other consultants - discontinue schneider catheter - flu and pneumovax addressed per protocol .... re-evaluate in am & prn CONDITION: CRITICAL CODE STATUS: FULL CODE The high probability of a clinically significant, sudden or life-threatening deterioration of the [cardiac, respiratory system(s) required my full and direct attention, intervention and personal management. The aggregate critical care time was [35] minutes without overlap. Time includes spent on; [x] Data Review and interpretation [x] Patient assessment and monitoring of vital signs [x] Documentation [x] Medication orders and management Subjective Date of service: 03/02/19 Principal diagnosis: AFlutter; HF Interval history: Patient is seen today for: Atrial Fib/flutter with RVR; COPD; AcuteCHF exac erbation (New Onset HFrEF); KURTIS/OHS Seen and examined at bedside; 24hour events reviewed; nursing and respiratory care staff consulted; no adverse overnight events reported to me; resting peacefully in bed; feels better; tolerating BIPAP well so far; denies acute chest pains or palpitations; remains on amiodarone drip as well as I.V. heparin; No N/V/F/C; orthopnea is better Objective Vital Signs - 12hr 03/01/19 03/01/19 03/01/19 23:30 23:39 23:45 Temperature 97.5 F L Pulse Rate 138 H 114 H Respiratory 29 H Rate Blood Pressure 131/98 O2 Sat by Pulse 91 91 Oximetry 03/02/19 03/02/19 03/02/19 00:01 00:15 00:31 Temperature Pulse Rate 114 H 114 H 121 H Respiratory 28 H 28 H 18 Rate Blood Pressure 154/110 104/79 154/110 O2 Sat by Pulse 92 94 95 Oximetry 03/02/19 03/02/19 03/02/19 00:45 00:57 01:01 Temperature Pulse Rate 114 H 115 H 114 H Respiratory 20 27 H 22 Rate Blood Pressure 131/74 131/74 125/97 O2 Sat by Pulse 94 94 94 Oximetry 03/02/19 03/02/19 03/02/19 01:15 01:30 01:45 Temperature Pulse Rate 121 H 122 H 125 H Respiratory 20 20 22 Rate Blood Pressure 125/97 136/97 128/93 O2 Sat by Pulse 93 94 92 Oximetry 03/02/19 03/02/19 03/02/19 02:00 02:15 02:30 Temperature Pulse Rate 123 H 131 H 122 H Respiratory 22 20 19 Rate Blood Pressure 104/79 144/87 142/92 O2 Sat by Pulse 95 96 95 Oximetry 03/02/19 03/02/19 03/02/19 02:45 03:01 03:15 Temperature Pulse Rate 122 H 129 H 120 H Respiratory 19 20 17 Rate Blood Pressure 145/92 120/98 140/95 O2 Sat by Pulse 96 96 95 Oximetry 03/02/19 03/02/19 03/02/19 03:30 03:45 04:00 Temperature 97.6 F Pulse Rate 120 H 132 H Respiratory 18 23 Rate Blood Pressure 152/118 139/102 O2 Sat by Pulse 96 97 Oximetry 03/02/19 03/02/19 03/02/19 04:01 04:15 04:30 Temperature Pulse Rate 132 H 134 H 136 H Respiratory 21 21 21 Rate Blood Pressure 142/90 132/100 129/96 O2 Sat by Pulse 96 99 97 Oximetry 03/02/19 03/02/19 03/02/19 04:45 05:01 05:15 Temperature Pulse Rate 129 H 130 H 126 H Respiratory 18 17 17 Rate Blood Pressure 124/93 120/102 136/106 O2 Sat by Pulse 99 97 96 Oximetry 03/02/19 03/02/19 03/02/19 05:31 05:45 06:01 Temperature Pulse Rate 133 H 123 H 145 H Respiratory 18 20 19 Rate Blood Pressure 114/81 122/89 139/104 O2 Sat by Pulse 97 95 96 Oximetry 03/02/19 03/02/19 03/02/19 06:15 06:31 06:45 Temperature Pulse Rate 124 H 123 H 145 H Respiratory 20 20 20 Rate Blood Pressure 142/90 131/109 123/99 O2 Sat by Pulse 95 96 97 Oximetry 03/02/19 03/02/19 03/02/19 07:01 07:15 07:18 Temperature Pulse Rate 133 H 146 H Respiratory 18 24 Rate Blood Pressure 115/97 122/87 O2 Sat by Pulse 97 91 96 Oximetry 03/02/19 03/02/19 08:00 10:00 Temperature Pulse Rate 146 H 122 H Respiratory Rate Blood Pressure 132/80 122/90 O2 Sat by Pulse Oximetry Constitutional: appears uncomfortable, other (middle aged morbidly obese AAF, normocephalic and atraumatic with incresaed resp effort at rest) Eyes: non-icteric ENT: oropharynx moist, other (Mallampati 4) Neck: supple, no lymphadenopathy, no JVD, other (large neck circumference) Effort: mildly labored Ascultation: Bilateral: clear, diminished breath sounds Percussion: Bilateral: not dull Cardiovascular: irregular rhythm, other (No R/M) Gastrointestinal: normoactive bowel sounds, soft, non-tender, non-distended Integumentary: rash (stasis dermatitis to lower extremities) Extremities: no cyanosis, pulses normal, no ischemia or petechiae, edema (1+) Neurologic: normal mental status, non-focal exam, pupils equal and round, motor strength normal and Psychiatric: mood appropriate, affect normal CBC and BMP: 03/02/19 12:00 03/01/19 05:26 ABG, PT/INR, D-dimer: ABG POC ABG pH 7.368 (7.35-7.45) 03/01/19 09:46 POC ABG pCO2 43.1 (35-45) 03/01/19 09:46 POC ABG pO2 95 (80-105) 03/01/19 09:46 POC ABG HCO3 24.8 (22-26 mml/L) 03/01/19 09:46 POC ABG Total CO2 26 (23-27mmol/L) 03/01/19 09:46 POC ABG O2 Sat 97 03/01/19 09:46 PT/INR, D-dimer PT 16.9 Sec. (12.2-14.9) H 02/28/19 13:12 INR 1.41 (0.87-1.13) H 02/28/19 13:12 7368.96 ng/mlDDU (0-234) H 02/28/19 13:15 Abnormal lab findings: Abnormal Labs 02/28/19 02/28/19 02/28/19 13:12 13:12 13:12 RBC 5.36 H Hgb 16.3 H Hct 51.3 H RDW 15.6 H [place] % (Auto) [place] # Seg Neutrophils % 78.2 H Seg Neutrophils # 8.4 H PT 16.9 H INR 1.41 H APTT 24.0 L D-Dimer Heparin Anti-Xa Level Carbon Dioxide 17 L BUN 18 H Glucose 195 H Total Bilirubin 1.60 H Alkaline Phosphatase 167 H NT-Pro-B Natriuret Pep 3618 H Albumin 3.7 L 02/28/19 03/01/19 03/01/19 13:15 05:26 05:26 RBC Hgb 14.5 H Hct 44.7 H D RDW [place] % (Auto) 9.0 H [place] # 0.9 H Seg Neutrophils % 72.4 H Seg Neutrophils # PT INR APTT D-Dimer 7368.96 H Heparin Anti-Xa Level Carbon Dioxide BUN 18 H Glucose 118 H Total Bilirubin Alkaline Phosphatase NT-Pro-B Natriuret Pep Albumin 2.8 L 03/01/19 03/01/19 13:11 21:51 RBC Hgb Hct RDW [place] % (Auto) [place] # Seg Neutrophils % Seg Neutrophils # PT INR APTT D-Dimer Heparin Anti-Xa Level < 0.10 L 0.97 H Carbon Dioxide BUN Glucose Total Bilirubin Alkaline Phosphatase NT-Pro-B Natriuret Pep Albumin Chest x-ray: image reviewed (cardiomegally; mild interstitial edema; left pleural effusion) Allied health notes reviewed: nursing
[2019-03-02 12:27] LABS: Hematocrit 45.9 % (30.3-42.9); Hemoglobin 14.9 gm/dl (10.1-14.3)
--- NOTE | 2019-03-02 12:53 | Progress Note ---
Assessment and Plan Echo reviewed - EF 15-20%, RV mildly diated, RA mildly dilated, mild to mod TR, RVSP 34mmHg, trivial pericardial effusion, increased RA pressure. Pt remains in AFlutter with RVR on cardizem gtt @ 15mg/hr. Will d/c cardizem and initiate IV amiodarone. Increase PO lopressor. Initiate aldactone and losartan in setting of CMP. Cont IV lasix. We are unable to pursue an ischemic evaluation at this time to r/o ischemic CMP due to pt's weight. Pt currently on heparin gtt in setting of elevated DDimer and AFlutter. From cardiac perspective, she can be converted to NOAC (Eliquis 5mg BID). The patient has been seen in conjunction with Dr. Sandoval who agrees with the assessment and plan of care. - Patient Problems (1) Acute HFrEF (heart failure with reduced ejection fraction) Current Visit: Yes Status: Acute (2) Cardiomyopathy Current Visit: Yes Status: Chronic (3) Atrial flutter with rapid ventricular response Current Visit: Yes Status: Acute (4) Elevated d-dimer Current Visit: Yes Status: Acute (5) HTN (hypertension) Current Visit: Yes Status: Chronic Qualifiers: Hypertension type: essential hypertension Qualified Code(s): I10 - Essential (primary) hypertension (6) Morbid obesity Current Visit: Yes Status: Chronic (7) Lymphedema Current Visit: Yes Status: Chronic (8) History of asthma Current Visit: Yes Status: Chronic (9) Sleep apnea Current Visit: Yes Status: Chronic Qualifiers: Sleep apnea type: unspecified type Qualified Code(s): G47.30 - Sleep apnea, unspecified Subjective Date of service: 03/02/19 Principal diagnosis: AFlutter; HF Interval history: pt resting in bed, remains in Aflutter with HR 130 - 140s, on cardizem gtt @ 15mg/hr, on heparin gtt. Objective Last Vital Signs Temp 97.6 F 03/02/19 04:00 Pulse 122 H 03/02/19 10:00 Resp 24 03/02/19 07:15 BP 122/90 03/02/19 10:00 Pulse Ox 96 03/02/19 07:18 - Physical Examination General: No Apparent Distress HEENT: Positive: PERRL, Normocephaly, Mucus Membranes Moist Neck: Positive: neck supple, trachea midline Neuro: Positive: Grossly Intact Abdomen: Negative: Tender Skin: Negative: Rash Musculoskeletal: No Pain Extremities: Present: +3 Edema (BLE, lymphedema) - Labs and Meds CBC 03/02/19 Range/Units 12:00 Hgb 14.9 H (10.1-14.3) gm/dl Hct 45.9 H (30.3-42.9) % Plt Count 340 (140-440) K/mm3 - Imaging and Cardiology EKG: report reviewed, image reviewed Echo: report reviewed - Telemetry EKG Rhythm: Atrial Flutter
[2019-03-02] MEDS: PEPCID PO SCH (15:00)
--- NOTE | 2019-03-02 18:29 | Progress Note ---
Assessment and Plan - Patient Problems (1) Acute respiratory failure with hypoxemia Current Visit: Yes Status: Acute Plan to address problem: Acute hypoxic respiratory failure multifactorial secondary to COPD obesity hypoventilation syndrome and sleep apnea. Patient not requiring BiPAP stable. Stable to transfer to floor. (2) Atrial flutter with rapid ventricular response Current Visit: Yes Status: Acute Plan to address problem: Patient on Cardizem drip has responded well with rate remains irregular. On heparin drip for anticoagulation. Heart rate much better consistently less than 110. Stable to transfer to floor continue amiodarone drip continue anticoagulation.. We'll discontinue by mouth Cardizem continue IV Cardizem. We'll change to by mouth when rate better controlled. Echocardiogram to rule out structural heart disease. Most likely etiology hypoxemia. Magnesium stable. (3) CHF (congestive heart failure) Current Visit: Yes Status: Acute Qualifiers: Heart failure chronicity: acute on chronic Plan to address problem: We'll treat with IV diuretics. Will obtain echocardiogram to establish left ventricular function. 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 (4) Obesity hypoventilation syndrome Current Visit: Yes Status: Acute Plan to address problem: Suggest weight loss options including but not limited to bariatric surgery. (5) HTN (hypertension) Current Visit: Yes Status: Chronic Qualifiers: Hypertension type: essential hypertension Qualified Code(s): I10 - Essent ial (primary) hypertension Plan to address problem: Patient has fair control of blood pressure. Continue current management. (6) Edema Current Visit: Yes Status: Acute Plan to address problem: [place] with marked lymphedema. Difficult to raise leg because of level of obesity and lymphedema. Will benefit from outpatient lymphedema clinic. History Interval history: Patient doing much better today. Heart rate has come down to the 90s and 100 100s. Patient's breathing is better. Patient did ask why did her breathing gets so bad. And we discussed obesity hypoventilation syndrome discussed weight discussed causes for A. fib. Hospitalist Physical - Constitutional Vitals: Temp Pulse Resp BP Pulse Ox 97.3 F L 103 H 31 H 132/110 83 L 03/02/19 16:00 03/02/19 18:00 03/02/19 18:00 03/02/19 18:00 03/02/19 18:00 General appearance: Present: no acute distress, obese - EENT Eyes: Present: PERRL, EOM intact ENT: hearing intact, clear oral mucosa, dentition normal, oropharyngeal erythema, no poor dentition, no thrush, no ulcerations, no edentulous - Neck Neck: Present: supple, normal ROM, other (neck is morbidly obese.). Absent: enlarged thyroid, masses or JVD - Respiratory Respiratory: right: diminished (diminished breath sounds throughout. Difficult to [employer] rhonchi) - Cardiovascular Rhythm: regular - Extremities Extremities: no ischemia, pulses intact, pulses symmetrical Extremity abnormal: edema, other (found edema and edema. Lymphedema) - Abdominal General gastrointestinal: soft, non-distended, normal bowel sounds, no hepatomegaly, no splenomegaly - Integumentary Integumentary: Present: clear, warm, dry - Psychiatric Psychiatric: appropriate mood/affect, intact judgment & insight, memory intact - Neurologic Neurologic: CNII-XII intact, focal deficits, moves all extremities Results - Labs CBC & Chem 7: 03/02/19 12:00 03/01/19 05:26 Labs: Laboratory Last Values WBC 9.5 K/mm3 (4.5-11.0) 03/01/19 05:26 RBC 4.72 M/mm3 (3.65-5.03) 03/01/19 05:26 Hgb 14.9 gm/dl (10.1-14.3) H 03/02/19 12:00 Hct 45.9 % (30.3-42.9) H 03/02/19 12:00 MCV 95 fl (79-97) 03/01/19 05:26 MCH 31 pg (28-32) 03/01/19 05:26 MCHC 32 % (30-34) 03/01/19 05:26 RDW 15.1 % (13.2-15.2) 03/01/19 05:26 Plt Count 340 K/mm3 (140-440) 03/02/19 12:00 Lymph % (Auto) 16.9 % (13.4-35.0) 03/01/19 05:26 [place] % (Auto) 9.0 % (0.0-7.3) H 03/01/19 05:26 Eos % (Auto) 0.7 % (0.0-4.3) 03/01/19 05:26 Baso % (Auto) 1.0 % (0.0-1.8) 03/01/19 05:26 Lymph # 1.6 K/mm3 (1.2-5.4) 03/01/19 05:26 [place] # 0.9 K/mm3 (0.0-0.8) H 03/01/19 05:26 Eos # 0.1 K/mm3 (0.0-0.4) 03/01/19 05:26 Baso # 0.1 K/mm3 (0.0-0.1) 03/01/19 05:26 Seg Neutrophils % 72.4 % (40.0-70.0) H 03/01/19 05:26 Seg Neutrophils # 6.9 K/mm3 (1.8-7.7) 03/01/19 05:26 PT 16.9 Sec. (12.2-14.9) H 02/28/19 13:12 INR 1.41 (0.87-1.13) H 02/28/19 13:12 APTT 24.0 Sec. (24.2-36.6) L 02/28/19 13:12 7368.96 ng/mlDDU (0-234) H 02/28/19 13:15 Heparin Anti-Xa Level 0.11 U.I./ml (0.3-0.7) L 03/02/19 12:00 POC ABG pH 7.368 (7.35-7.45) 03/01/19 09:46 POC ABG pCO2 43.1 (35-45) 03/01/19 09:46 POC ABG pO2 95 (80-105) 03/01/19 09:46 POC ABG HCO3 24.8 (22-26 mml/L) 03/01/19 09:46 POC ABG Total CO2 26 (23-27mmol/L) 03/01/19 09:46 POC ABG O2 Sat 97 03/01/19 09:46 POC ABG Base Excess 0 ((-2) - (+3)mmol/L) 03/01/19 09:46 50 % 03/01/19 09:46 Sodium 139 mmol/L (137-145) 03/01/19 05:26 Potassium 4.1 mmol/L (3.6-5.0) 03/01/19 05:26 Chloride 104.2 mmol/L (98-107) 03/01/19 05:26 Carbon Dioxide 23 mmol/L (22-30) 03/01/19 05:26 16 mmol/L 03/01/19 05:26 BUN 18 mg/dL (7-17) H 03/01/19 05:26 0.9 mg/dL (0.7-1.2) 03/01/19 05:26 Estimated GFR > 60 ml/min 03/01/19 05:26 20 % 03/01/19 05:26 Glucose 118 mg/dL (65-100) H 03/01/19 05:26 POC Glucose 149 (70-105) H 03/02/19 11:36 Calcium 8.8 mg/dL (8.4-10.2) 03/01/19 05:26 Magnesium 1.80 mg/dL (1.7-2.3) 02/28/19 21:38 1.00 mg/dL (0.1-1.2) 03/01/19 05:26 AST 23 units/L (5-40) 03/01/19 05:26 ALT 21 units/L (7-56) 03/01/19 05:26 128 units/L (35-129) 03/01/19 05:26 < 0.010 ng/mL (0.00-0.029) 02/28/19 21:38 NT-Pro-B Natriuret Pep 3618 pg/mL (0-900) H 02/28/19 13:12 6.4 g/dL (6.3-8.2) 03/01/19 05:26 2.8 g/dL (3.9-5) L 03/01/19 05:26 0.8 % 03/01/19 05:26 TSH 2.830 mlU/mL (0.270-4.200) 02/28/19 21:38 TSH 2.870 mlU/mL (0.270-4.200) 02/28/19 21:38 Free T4 1.24 ng/dL (0.76-1.46) 02/28/19 21:38 Free T4 1.26 ng/dL (0.76-1.46) 02/28/19 21:38 Yellow (Yellow) 02/28/19 18:00 Slightly-cloudy (Clear) 02/28/19 18:00 5.0 (5.0-7.0) 02/28/19 18:00 Ur Specific [place] 1.008 (1.003-1.030) 02/28/19 18:00 <15 mg/dl mg/dL (Negative) 02/28/19 18:00 Neg mg/dL (Negative) 02/28/19 18:00 Neg mg/dL (Negative) 02/28/19 18:00 Sm (Negative) 02/28/19 18:00 Neg (Negative) 02/28/19 18:00 Neg (Negative) 02/28/19 18:00 < 2.0 mg/dL (<2.0) 02/28/19 18:00 Ur Leukocyte Esterase Neg (Negative) 02/28/19 18:00 < 1.0 /HPF (0.0-6.0) 02/28/19 18:00 1.0 /HPF (0.0-6.0) 02/28/19 18:00 U Epithel Cells (Auto) 1.0 /HPF (0-13.0) 02/28/19 18:00 1+ /HPF (Negative) 02/28/19 18:00 Hyaline Casts 1 /LPF 02/28/19 18:00 Few /HPF 02/28/19 18:00 Active Medications - Current Medications Current Medications: Generic Name Dose Route Start Last Admin Trade Name Freq PRN Reason Stop Dose Admin Acetaminophen 650 mg 02/28/19 17:01 02/28/19 20:21 Tylenol PO 650 mg Q4H PRN Administration Pain MILD(1-3)/Fever >100.5/TAYLOR Famotidine 20 mg 03/02/19 15:00 03/02/19 15:00 Pepcid PO 20 mg QDAY SULAIMAN Administration Furosemide 40 mg 02/28/19 16:00 03/02/19 10:00 Lasix IV 40 mg BID SULAIMAN Administration Heparin Sodium/Sodium Chloride 25,000 unit in 500 mls @ 30 mls/hr 02/28/19 16:00 03/02/19 15:00 Heparin/ 0.45% Nacl-25,000 Unit/500 Ml IV 2,300 units/hr TITR SULAIMAN 46 mls/hr Administration Protocol 1,500 UNITS/HR Azithromycin 500 mg/ Sodium 250 mls @ 250 mls/hr 03/01/19 10:00 03/02/19 11:00 Chloride IV 03/05/19 23:59 Infused Q24HR SULAIMAN Infusion Protocol Amiodarone HCl 900 mg/ 500 mls @ 33.333 mls/hr 03/02/19 10:00 03/02/19 12:32 Dextrose IV 1 mg/min DIRECT SULAIMAN 33.333 mls/hr Administration Protocol 1 MG/MIN Losartan Potassium 12.5 mg 03/02/19 10:00 03/02/19 10:00 Cozaar PO 12.5 mg QDAY SULAIMAN Administration Metoprolol Tartrate 50 mg 03/02/19 22:00 Lopressor PO BID SULAIMAN Ondansetron HCl 4 mg 02/28/19 17:01 Zofran IV Q8H PRN Nausea And Vomiting Sodium Chloride 10 ml 02/28/19 22:00 03/02/19 10:00 Sodium Chloride Flush Syringe 10 Ml IV 10 ml BID SULAIMAN Administration Sodium Chloride 10 ml 02/28/19 17:01 Sodium Chloride Flush Syringe 10 Ml IV PRN PRN LINE FLUSH Spironolactone 12.5 mg 03/02/19 10:00 03/02/19 10:00 Aldactone PO 12.5 mg QDAY SULAIMAN Administration
--- NOTE | 2019-03-03 08:25 | Progress Note ---
Assessment and Plan Assessment and plan: Acute HFrEF. Echo revealed - EF 15-20%, RV mildly diated, RA mildly dilated, mild to mod TR, RVSP 34mmHg, trivial pericardial effusion, increased RA pressure. Continue Lopressor and spironolactone. Cardiomyopathy. As above. We are unable to pursue an ischemic evaluation at this time to r/o ischemic CMP due to pt's weight. Acute hypoxic respiratory failure. Etiology multifactorial secondary to acute systolic heart failure, COPD, KURTIS and OHS. Continue BiPAP at night and as clinically indicated. Atrial flutter with rapid ventricular response. Continue amiodarone per cardiology. DC heparin drip and start Eliquis 5mg BID if okay with pulmonary Hypertension. Continue antihypertensive medications. Morbid obesity. History Interval history: No new issues overnight. Hospitalist Physical - Constitutional Vitals: Temp Pulse Resp BP Pulse Ox 99.0 F 70 20 165/106 92 03/03/19 04:05 03/03/19 06:00 03/03/19 04:00 03/03/19 04:05 03/03/19 04:05 General appearance: Present: no acute distress, obese - EENT Eyes: Present: PERRL, EOM intact ENT: hearing intact, clear oral mucosa, dentition normal - Neck Neck: Present: supple, normal ROM - Respiratory Respiratory effort: normal Respiratory: bilateral: CTA - Cardiovascular Rhythm: regular Heart Sounds: Present: S1 & S2. Absent: gallop, rub - Extremities Extremities: no ischemia, No edema, Full ROM - Abdominal General gastrointestinal: soft, non-tender, non-distended, normal bowel sounds - Integumentary Integumentary: Present: clear, warm, dry - Neurologic Neurologic: CNII-XII intact, moves all extremities Results - Labs CBC & Chem 7: 03/02/19 12:00 03/01/19 05:26 Labs: Laboratory Last Values WBC 9.5 K/mm3 (4.5-11.0) 03/01/19 05:26 RBC 4.72 M/mm3 (3.65-5.03) 03/01/19 05:26 Hgb 14.9 gm/dl (10.1-14.3) H 03/02/19 12:00 Hct 45.9 % (30.3-42.9) H 03/02/19 12:00 MCV 95 fl (79-97) 03/01/19 05:26 MCH 31 pg (28-32) 03/01/19 05:26 MCHC 32 % (30-34) 03/01/19 05:26 RDW 15.1 % (13.2-15.2) 03/01/19 05:26 Plt Count 340 K/mm3 (140-440) 03/02/19 12:00 Lymph % (Auto) 16.9 % (13.4-35.0) 03/01/19 05:26 [place] % (Auto) 9.0 % (0.0-7.3) H 03/01/19 05:26 Eos % (Auto) 0.7 % (0.0-4.3) 03/01/19 05:26 Baso % (Auto) 1.0 % (0.0-1.8) 03/01/19 05:26 Lymph # 1.6 K/mm3 (1.2-5.4) 03/01/19 05:26 [place] # 0.9 K/mm3 (0.0-0.8) H 03/01/19 05:26 Eos # 0.1 K/mm3 (0.0-0.4) 03/01/19 05:26 Baso # 0.1 K/mm3 (0.0-0.1) 03/01/19 05:26 Seg Neutrophils % 72.4 % (40.0-70.0) H 03/01/19 05:26 Seg Neutrophils # 6.9 K/mm3 (1.8-7.7) 03/01/19 05:26 PT 16.9 Sec. (12.2-14.9) H 02/28/19 13:12 INR 1.41 (0.87-1.13) H 02/28/19 13:12 APTT 24.0 Sec. (24.2-36.6) L 02/28/19 13:12 7368.96 ng/mlDDU (0-234) H 02/28/19 13:15 Heparin Anti-Xa Level 0.58 U.I./ml (0.3-0.7) 03/02/19 21:25 POC ABG pH 7.368 (7.35-7.45) 03/01/19 09:46 POC ABG pCO2 43.1 (35-45) 03/01/19 09:46 POC ABG pO2 95 (80-105) 03/01/19 09:46 POC ABG HCO3 24.8 (22-26 mml/L) 03/01/19 09:46 POC ABG Total CO2 26 (23-27mmol/L) 03/01/19 09:46 POC ABG O2 Sat 97 03/01/19 09:46 POC ABG Base Excess 0 ((-2) - (+3)mmol/L) 03/01/19 09:46 50 % 03/01/19 09:46 Sodium 139 mmol/L (137-145) 03/01/19 05:26 Potassium 4.1 mmol/L (3.6-5.0) 03/01/19 05:26 Chloride 104.2 mmol/L (98-107) 03/01/19 05:26 Carbon Dioxide 23 mmol/L (22-30) 03/01/19 05:26 16 mmol/L 03/01/19 05:26 BUN 18 mg/dL (7-17) H 03/01/19 05:26 0.9 mg/dL (0.7-1.2) 03/01/19 05:26 Estimated GFR > 60 ml/min 03/01/19 05:26 20 % 03/01/19 05:26 Glucose 118 mg/dL (65-100) H 03/01/19 05:26 POC Glucose 124 (70-105) H 03/02/19 22:02 Calcium 8.8 mg/dL (8.4-10.2) 03/01/19 05:26 Magnesium 1.80 mg/dL (1.7-2.3) 02/28/19 21:38 1.00 mg/dL (0.1-1.2) 03/01/19 05:26 AST 23 units/L (5-40) 03/01/19 05:26 ALT 21 units/L (7-56) 03/01/19 05:26 128 units/L (35-129) 03/01/19 05:26 < 0.010 ng/mL (0.00-0.029) 02/28/19 21:38 NT-Pro-B Natriuret Pep 3618 pg/mL (0-900) H 02/28/19 13:12 6.4 g/dL (6.3-8.2) 03/01/19 05:26 2.8 g/dL (3.9-5) L 03/01/19 05:26 0.8 % 03/01/19 05:26 TSH 2.830 mlU/mL (0.270-4.200) 02/28/19 21:38 TSH 2.870 mlU/mL (0.270-4.200) 02/28/19 21:38 Free T4 1.24 ng/dL (0.76-1.46) 02/28/19 21:38 Free T4 1.26 ng/dL (0.76-1.46) 02/28/19 21:38 Yellow (Yellow) 02/28/19 18:00 Slightly-cloudy (Clear) 02/28/19 18:00 5.0 (5.0-7.0) 02/28/19 18:00 Ur Specific [place] 1.008 (1.003-1.030) 02/28/19 18:00 <15 mg/dl mg/dL (Negative) 02/28/19 18:00 Neg mg/dL (Negative) 02/28/19 18:00 Neg mg/dL (Negative) 02/28/19 18:00 Sm (Negative) 02/28/19 18:00 Neg (Negative) 02/28/19 18:00 Neg (Negative) 02/28/19 18:00 < 2.0 mg/dL (<2.0) 02/28/19 18:00 Ur Leukocyte Esterase Neg (Negative) 02/28/19 18:00 < 1.0 /HPF (0.0-6.0) 02/28/19 18:00 1.0 /HPF (0.0-6.0) 02/28/19 18:00 U Epithel Cells (Auto) 1.0 /HPF (0-13.0) 02/28/19 18:00 1+ /HPF (Negative) 02/28/19 18:00 Hyaline Casts 1 /LPF 02/28/19 18:00 Few /HPF 02/28/19 18:00 Active Medications - Current Medications Current Medications: Generic Name Dose Route Start Last Admin Trade Name Princess PRN Reason Stop Dose Admin Acetaminophen 650 mg 02/28/19 17:01 02/28/19 20:21 Tylenol PO 650 mg Q4H PRN Administration Pain MILD(1-3)/Fever >100.5/TAYLOR Famotidine 20 mg 03/02/19 15:00 03/02/19 15:00 Pepcid PO 20 mg QDAY SULAIMAN Administration Furosemide 40 mg 02/28/19 16:00 03/02/19 22:35 Lasix IV 40 mg BID SULAIMAN Administration Heparin Sodium/Sodium Chloride 25,000 unit in 500 mls @ 30 mls/hr 02/28/19 16:00 03/02/19 15:00 Heparin/ 0.45% Nacl-25,000 Unit/500 Ml IV 2,300 units/hr TITR SULAIMAN 46 mls/hr Administration Protocol 1,500 UNITS/HR Azithromycin 500 mg/ Sodium 250 mls @ 250 mls/hr 03/01/19 10:00 03/02/19 11:00 Chloride IV 03/05/19 23:59 Infused Q24HR SULAIMAN Infusion Protocol Amiodarone HCl 900 mg/ 500 mls @ 33.333 mls/hr 03/02/19 10:00 03/02/19 19:00 Dextrose IV 0.5 mg/min DIRECT SULAIMAN 16.667 mls/hr Infusion Protocol 1 MG/MIN Losartan Potassium 12.5 mg 03/02/19 10:00 03/02/19 10:00 Cozaar PO 12.5 mg QDAY SULAIMAN Administration Metoprolol Tartrate 50 mg 03/02/19 22:00 03/02/19 22:35 Lopressor PO 50 mg BID SULAIMAN Administration Ondansetron HCl 4 mg 02/28/19 17:01 Zofran IV Q8H PRN Nausea And Vomiting Sodium Chloride 10 ml 02/28/19 22:00 03/02/19 22:37 Sodium Chloride Flush Syringe 10 Ml IV 10 ml BID SULAIMAN Administration Sodium Chloride 10 ml 02/28/19 17:01 Sodium Chloride Flush Syringe 10 Ml IV PRN PRN LINE FLUSH Spironolactone 12.5 mg 03/02/19 10:00 03/02/19 10:00 Aldactone PO 12.5 mg QDAY SULAIMAN Administration
[2019-03-03] MEDS: LOPRESSOR PO SCH ×3 (10:34→20:54)
[2019-03-03] MEDS: COZAAR PO SCH (10:34)
[2019-03-03] MEDS: PEPCID PO SCH (10:34)
[2019-03-03] MEDS: ALDACTONE PO SCH (10:34)
[2019-03-03] MEDS: LASIX IV SCH ×2 (10:35→22:28)
[2019-03-03] MEDS: SODIUM CHLORIDE FLUSH SYRINGE 10 ML IV SCH (10:35)
[2019-03-03] MEDS: ZITHROMAX 500 MG in NACL 0.9% 250ML 250 ML IV SCH (11:16)
--- NOTE | 2019-03-03 13:06 | Progress Note ---
Assessment and Plan Pt remains in AFlutter with RVR. Cont amio gtt and increase lopressor dosage. Cont losartan, aldactone, IV lasix as tolerated. We are unable to pursue an ischemic evaluation at this time to r/o ischemic CMP due to pt's weight. Pt currently on heparin gtt in setting of elevated DDimer and AFlutter. From cardiac perspective, she can be converted to NOAC (Eliquis 5mg BID) if okay per pulmonary. Cardiac defibrillator (LifeVest) recommended in setting of severe cardiomyopathy. Pt is agreeable to LifeVest at this time and will plan to a ddress AICD candidacy as OP. LifeVest ordered. The patient has been seen in conjunction with Dr. Sandoval who agrees with the assessment and plan of care. - Patient Problems (1) Acute HFrEF (heart failure with reduced ejection fraction) Current Visit: Yes Status: Acute (2) Cardiomyopathy Current Visit: Yes Status: Chronic (3) Atrial flutter with rapid ventricular response Current Visit: Yes Status: Acute (4) Elevated d-dimer Current Visit: Yes Status: Acute (5) HTN (hypertension) Current Visit: Yes Status: Chronic Qualifiers: Hypertension type: essential hypertension Qualified Code(s): I10 - Essential (primary) hypertension (6) Morbid obesity Current Visit: Yes Status: Chronic (7) Lymphedema Current Visit: Yes Status: Chronic (8) History of asthma Current Visit: Yes Status: Chronic (9) Sleep apnea Current Visit: Yes Status: Chronic Qualifiers: Sleep apnea type: unspecified type Qualified Code(s): G47.30 - Sleep apnea, unspecified Subjective Date of service: 03/03/19 Principal diagnosis: AFlutter; HF Interval history: pt resting in bed, remains in Aflutter with HR 130s, amio and heparin gtt infusing. Objective Last Vital Signs Temp 97.7 F 03/03/19 08:07 Pulse 120 H 03/03/19 11:35 Resp 20 03/03/19 11:35 BP 165/118 03/03/19 11:35 Pulse Ox 90 03/03/19 11:35 - Physical Examination General: No Apparent Distress HEENT: Positive: PERRL, Normocephaly, Mucus Membranes Moist Neck: Positive: neck supple, trachea midline Cardiac: Positive: irregularly irregular, S1/S2, Tachycardia Lungs: Positive: Decreased Breath Sounds Neuro: Positive: Grossly Intact Abdomen: Negative: Tender Skin: Negative: Rash Musculoskeletal: No Pain Extremities: Present: +3 Edema (BLE, lymphedema) - Imaging and Cardiology EKG: report reviewed, image reviewed Echo: report reviewed (EF 15-20%, RV mildly diated, RA mildly dilated, mild to mod TR, RVSP 34mmHg, trivial pericardial effusion, increased RA pressure. ) - Telemetry EKG Rhythm: Atrial Flutter - Allied health notes Allied health notes reviewed: nursing
--- NOTE | 2019-03-03 13:58 | Progress Note ---
Assessment and Plan Atrial Fib/flutter with RVR Acute CHF exacerbation (New Onset HFrEF) Acute Hypoxemic Respiratory Failure KURTIS/OHS Morbid Obesity Hyperglycemia HTN Left pleural effusion - continue supplemental oxygen as needed to keep O2 sat's > 90% - continue IV heparin drip for anticoagulation re: A-fib - continue Amiodarone for rate & rhythm control - continue BIPAP scheduled qhs with prn daytime use - continue diuresis with lasix (currently 40 mg IV bid) - conservative management for effusion (hopefully resolves with diuresis) - optimize CHF management per cardiology team (on ARB, aldactone, metoprolol) - weight loss counseled - follow electrolytes and corect as necessary - added GI prophylaxis - continue other care per attending / other consultants - discontinue schneider catheter - flu and pneumovax addressed per protocol .... re-evaluate in am & prn CODE STATUS: FULL CODE Subjective Date of service: 03/03/19 Principal diagnosis: Atrial Fib/flutter with RVR; COPD; AcuteCHF exacerbation; KURTIS/OHS Interval history: Patient is seen today for: Atrial Fib/flutter with RVR; COPD; AcuteCHF exacerbation (New Onset HFrEF); KURTIS/OHS Seen and examined at bedside; 24hour events reviewed; nursing and respiratory care staff consulted; no adverse overnight events reported to me; resting p eacefully in bed; no emesis or overt aspiration; weaning off supplemental oxygen; no high gradee fevers; rate better controlled Objective Vital Signs - 12hr 03/03/19 03/03/19 03/03/19 02:40 02:45 04:00 Temperature 98.6 F Pulse Rate 130 H 138 H Respiratory 22 22 20 Rate Blood Pressure 159/111 O2 Sat by Pulse 94 91 Oximetry 03/03/19 03/03/19 03/03/19 04:05 06:00 08:07 Temperature 99.0 F 97.7 F Pulse Rate 135 H 70 Respiratory 18 Rate Blood Pressure 165/106 153/114 O2 Sat by Pulse 92 Oximetry 03/03/19 11:35 Temperature Pulse Rate 120 H Respiratory 20 Rate Blood Pressure 165/118 O2 Sat by Pulse 90 Oximetry Constitutional: appears uncomfortable, other (middle aged morbidly obese AAF, normocephalic and atraumatic with incresaed resp effort at rest) Eyes: non-icteric ENT: oropharynx moist, other (Mallampati 4) Neck: supple, no lymphadenopathy, no JVD, other (large neck circumference) Effort: mildly labored Ascultation: Bilateral: clear, diminished breath sounds Percussion: Bilateral: not dull Cardiovascular: irregular rhythm, other (No R/M) Gastrointestinal: normoactive bowel sounds, soft, non-tender, non-distended Integumentary: rash (stasis dermatitis to lower extremities) Extremities: no cyanosis, pulses normal, no ischemia or petechiae, edema (1+) Neurologic: normal mental status, non-focal exam, pupils equal and round, motor strength normal and Psychiatric: mood appropriate, affect normal CBC and BMP: 03/08/19 05:15 03/09/19 Unknown ABG, PT/INR, D-dimer: ABG POC ABG pH 7.368 (7.35-7.45) 03/01/19 09:46 POC ABG pCO2 43.1 (35-45) 03/01/19 09:46 POC ABG pO2 95 (80-105) 03/01/19 09:46 POC ABG HCO3 24.8 (22-26 mml/L) 03/01/19 09:46 POC ABG Total CO2 26 (23-27mmol/L) 03/01/19 09:46 POC ABG O2 Sat 97 03/01/19 09:46 PT/INR, D-dimer PT 16.9 Sec. (12.2-14.9) H 02/28/19 13:12 INR 1.41 (0.87-1.13) H 02/28/19 13:12 7368.96 ng/mlDDU (0-234) H 02/28/19 13:15 Abnormal lab findings: Abnormal Labs 02/28/19 02/28/19 02/28/19 13:12 13:12 13:12 RBC 5.36 H Hgb 16.3 H Hct 51.3 H RDW 15.6 H Latimer % (Auto) Latimer # Seg Neutrophils % 78.2 H Seg Neutrophils # 8.4 H PT 16.9 H INR 1.41 H APTT 24.0 L D-Dimer Heparin Anti-Xa Level Carbon Dioxide 17 L BUN 18 H Glucose 195 H POC Glucose Total Bilirubin 1.60 H Alkaline Phosphatase 167 H NT-Pro-B Natriuret Pep 3618 H Albumin 3.7 L 02/28/19 03/01/19 03/01/19 13:15 05:26 05:26 RBC Hgb 14.5 H Hct 44.7 H D RDW [place] % (Auto) 9.0 H Latimer # 0.9 H Seg Neutrophils % 72.4 H Seg Neutrophils # PT INR APTT D-Dimer 7368.96 H Heparin Anti-Xa Level Carbon Dioxide BUN 18 H Glucose 118 H POC Glucose Total Bilirubin Alkaline Phosphatase NT-Pro-B Natriuret Pep Albumin 2.8 L 03/01/19 03/01/19 03/02/19 13:11 21:51 11:36 RBC Hgb Hct RDW [place] % (Auto) Latimer # Seg Neutrophils % Seg Neutrophils # PT INR APTT D-Dimer Heparin Anti-Xa Level < 0.10 L 0.97 H Carbon Dioxide BUN Glucose POC Glucose 149 H Total Bilirubin Alkaline Phosphatase NT-Pro-B Natriuret Pep Albumin 03/02/19 03/02/19 03/02/19 12:00 12:00 17:56 RBC Hgb 14.9 H Hct 45.9 H RDW [place] % (Auto) Latimer # Seg Neutrophils % Seg Neutrophils # PT INR APTT D-Dimer Heparin Anti-Xa Level 0.11 L Carbon Dioxide BUN Glucose POC Glucose 140 H Total Bilirubin Alkaline Phosphatase NT-Pro-B Natriuret Pep Albumin 03/02/19 22:02 RBC Hgb Hct RDW [place] % (Auto) Latimer # Seg Neutrophils % Seg Neutrophils # PT INR APTT D-Dimer Heparin Anti-Xa Level Carbon Dioxide BUN Glucose POC Glucose 124 H Total Bilirubin Alkaline Phosphatase NT-Pro-B Natriuret Pep Albumin Chest x-ray: image reviewed Allied health notes reviewed: nursing
[2019-03-03] MEDS: TYLENOL PO PRN (20:37)
[2019-03-03] MEDS: HEPARIN/ 0.45% NACL-25,000 UNIT/500 ML 25,000 UNIT/500 ML BAG IV SCH (20:38)
[2019-03-04] MEDS: HEPARIN/ 0.45% NACL-25,000 UNIT/500 ML 25,000 UNIT/500 ML BAG IV SCH (02:11)
[2019-03-04] MEDS: SODIUM CHLORIDE FLUSH SYRINGE 10 ML IV SCH ×3 (02:52→21:55)
[2019-03-04 05:20] LABS: BUN/Creatinine Ratio 14; Blood Urea Nitrogen 15 mg/dL (7-17); Calcium 8.9 mg/dL (8.4-10.2); Hemolysis Index 29
[2019-03-04 05:22] LABS: Hematocrit 47.8 % (30.3-42.9); Hemoglobin 15.3 gm/dl (10.1-14.3)
--- NOTE | 2019-03-04 09:36 | Progress Note ---
Assessment and Plan Assessment and plan: Acute HFrEF. Echo revealed - EF 15-20%, RV mildly diated, RA mildly dilated, mild to mod TR, RVSP 34mmHg, trivial pericardial effusion, increased RA pressure. Cont losartan, aldactone, IV lasix as tolerated. Cardiomyopathy. As above. We are unable to pursue an ischemic evaluation at this time to r/o ischemic CMP due to pt's weight. Cardiac defibrillator (LifeVest) recommended in setting of severe cardiomyopathy. Pt is agreeable to LifeVest at this time and will plan to address AICD candidacy as OP. LifeVest ordered. Acute hypoxic respiratory failure. Etiology multifactorial secondary to acute systolic heart failure, COPD, KURTIS and OHS. Continue BiPAP at night and as clinically indicated. Atrial flutter with rapid ventricular response. Continue amiodarone and increased lopressor dosage per cardiology. DC heparin drip and start Eliquis 5mg BID if okay with pulmonary Hypertension. Continue antihypertensive medications. Morbid obesity. History Interval history: No new issues overnight. Hospitalist Physical - Constitutional Vitals: Temp Pulse Resp BP Pulse Ox 98.6 F 141 H 20 180/122 92 03/04/19 04:10 03/04/19 07:40 03/04/19 07:40 03/04/19 07:40 03/04/19 07:40 General appearance: Present: no acute distress, obese - EENT Eyes: Present: PERRL, EOM intact ENT: hearing intact, clear oral mucosa, dentition normal - Neck Neck: Present: supple, normal ROM - Respiratory Respiratory effort: normal Respiratory: bilateral: CTA - Cardiovascular Rhythm: regular Heart Sounds: Present: S1 & S2. Absent: gallop, rub - Extremities Extremities: no ischemia, No edema, Full ROM - Abdominal General gastrointestinal: soft, non-tender, non-distended, normal bowel sounds - Integumentary Integumentary: Present: clear, warm, dry - Neurologic Neurologic: CNII-XII intact, moves all extremities Results - Labs CBC & Chem 7: 03/04/19 04:24 03/04/19 04:24 Labs: Laboratory Last Values WBC 9.5 K/mm3 (4.5-11.0) 03/01/19 05:26 RBC 4.72 M/mm3 (3.65-5.03) 03/01/19 05:26 Hgb 15.3 gm/dl (10.1-14.3) H 03/04/19 04:24 Hct 47.8 % (30.3-42.9) H 03/04/19 04:24 MCV 95 fl (79-97) 03/01/19 05:26 MCH 31 pg (28-32) 03/01/19 05:26 MCHC 32 % (30-34) 03/01/19 05:26 RDW 15.1 % (13.2-15.2) 03/01/19 05:26 Plt Count 320 K/mm3 (140-440) 03/04/19 04:24 Lymph % (Auto) 16.9 % (13.4-35.0) 03/01/19 05:26 [place] % (Auto) 9.0 % (0.0-7.3) H 03/01/19 05:26 Eos % (Auto) 0.7 % (0.0-4.3) 03/01/19 05:26 Baso % (Auto) 1.0 % (0.0-1.8) 03/01/19 05:26 Lymph # 1.6 K/mm3 (1.2-5.4) 03/01/19 05:26 [place] # 0.9 K/mm3 (0.0-0.8) H 03/01/19 05:26 Eos # 0.1 K/mm3 (0.0-0.4) 03/01/19 05:26 Baso # 0.1 K/mm3 (0.0-0.1) 03/01/19 05:26 Seg Neutrophils % 72.4 % (40.0-70.0) H 03/01/19 05:26 Seg Neutrophils # 6.9 K/mm3 (1.8-7.7) 03/01/19 05:26 PT 16.9 Sec. (12.2-14.9) H 02/28/19 13:12 INR 1.41 (0.87-1.13) H 02/28/19 13:12 APTT 24.0 Sec. (24.2-36.6) L 02/28/19 13:12 7368.96 ng/mlDDU (0-234) H 02/28/19 13:15 Heparin Anti-Xa Level 0.66 U.I./ml (0.3-0.7) 03/04/19 07:52 POC ABG pH 7.368 (7.35-7.45) 03/01/19 09:46 POC ABG pCO2 43.1 (35-45) 03/01/19 09:46 POC ABG pO2 95 (80-105) 03/01/19 09:46 POC ABG HCO3 24.8 (22-26 mml/L) 03/01/19 09:46 POC ABG Total CO2 26 (23-27mmol/L) 03/01/19 09:46 POC ABG O2 Sat 97 03/01/19 09:46 POC ABG Base Excess 0 ((-2) - (+3)mmol/L) 03/01/19 09:46 50 % 03/01/19 09:46 Sodium 140 mmol/L (137-145) 03/04/19 04:24 Potassium 3.8 mmol/L (3.6-5.0) 03/04/19 04:24 Chloride 98.6 mmol/L (98-107) 03/04/19 04:24 Carbon Dioxide 30 mmol/L (22-30) D 03/04/19 04:24 15 mmol/L 03/04/19 04:24 BUN 15 mg/dL (7-17) 03/04/19 04:24 1.1 mg/dL (0.7-1.2) 03/04/19 04:24 Estimated GFR > 60 ml/min 03/04/19 04:24 14 % 03/04/19 04:24 Glucose 109 mg/dL (65-100) H 03/04/19 04:24 POC Glucose 98 (70-105) 03/04/19 07:46 Calcium 8.9 mg/dL (8.4-10.2) 03/04/19 04:24 Magnesium 1.80 mg/dL (1.7-2.3) 02/28/19 21:38 1.00 mg/dL (0.1-1.2) 03/01/19 05:26 AST 23 units/L (5-40) 03/01/19 05:26 ALT 21 units/L (7-56) 03/01/19 05:26 128 units/L (35-129) 03/01/19 05:26 < 0.010 ng/mL (0.00-0.029) 02/28/19 21:38 NT-Pro-B Natriuret Pep 3618 pg/mL (0-900) H 02/28/19 13:12 6.4 g/dL (6.3-8.2) 03/01/19 05:26 2.8 g/dL (3.9-5) L 03/01/19 05:26 0.8 % 03/01/19 05:26 TSH 2.830 mlU/mL (0.270-4.200) 02/28/19 21:38 TSH 2.870 mlU/mL (0.270-4.200) 02/28/19 21:38 Free T4 1.24 ng/dL (0.76-1.46) 02/28/19 21: Free T4 1.26 ng/dL (0.76-1.46) 02/28/19 21:38 Yellow (Yellow) 02/28/19 18:00 Slightly-cloudy (Clear) 02/28/19 18:00 5.0 (5.0-7.0) 02/28/19 18:00 Ur Specific [place] 1.008 (1.003-1.030) 02/28/19 18:00 <15 mg/dl mg/dL (Negative) 02/28/19 18:00 Neg mg/dL (Negative) 02/28/19 18:00 Neg mg/dL (Negative) 02/28/19 18:00 Sm (Negative) 02/28/19 18:00 Neg (Negative) 02/28/19 18:00 Neg (Negative) 02/28/19 18:00 < 2.0 mg/dL (<2.0) 02/28/19 18:00 Ur Leukocyte Esterase Neg (Negative) 02/28/19 18:00 < 1.0 /HPF (0.0-6.0) 02/28/19 18:00 1.0 /HPF (0.0-6.0) 02/28/19 18:00 U Epithel Cells (Auto) 1.0 /HPF (0-13.0) 02/28/19 18:00 1+ /HPF (Negative) 02/28/19 18:00 Hyaline Casts 1 /LPF 02/28/19 18:00 Few /HPF 02/28/19 18:00 Active Medications - Current Medications Current Medications: Generic Name Dose Route Start Last Admin Trade Name Princess PRN Reason Stop Dose Admin Acetaminophen 650 mg 02/28/19 17:01 03/03/19 20:37 Tylenol PO 650 mg Q4H PRN Administration Pain MILD(1-3)/Fever >100.5/TAYLOR Famotidine 20 mg 03/02/19 15:00 03/03/19 10:34 Pepcid PO 20 mg QDAY SULAIMAN Administration Furosemide 40 mg 02/28/19 16:00 03/03/19 22:28 Lasix IV 40 mg BID SULAIMAN Administration Heparin Sodium/Sodium Chloride 25,000 unit in 500 mls @ 30 mls/hr 02/28/19 16:00 03/04/19 02:11 Heparin/ 0.45% Nacl-25,000 Unit/500 Ml IV 2,500 units/hr TITR SULAIMAN 50 mls/hr Administration Protocol 1,500 UNITS/HR Azithromycin 500 mg/ Sodium 250 mls @ 250 mls/hr 03/01/19 10:00 03/03/19 11:16 Chloride IV 03/05/19 23:59 250 mls/hr Q24HR SULAIMAN Administration Protocol Losartan Potassium 12.5 mg 03/02/19 10:00 03/03/19 10:34 Cozaar PO 12.5 mg QDAY SULAIMAN Administration Metoprolol Tartrate 50 mg 03/03/19 14:00 03/03/19 20:54 Lopressor PO 50 mg TID SULAIMAN Administration Ondansetron HCl 4 mg 02/28/19 17:01 Zofran IV Q8H PRN Nausea And Vomiting Sodium Chloride 10 ml 02/28/19 22:00 03/04/19 02:52 Sodium Chloride Flush Syringe 10 Ml IV Not Given BID SULAIMAN Sodium Chloride 10 ml 02/28/19 17:01 Sodium Chloride Flush Syringe 10 Ml IV PRN PRN LINE FLUSH Spironolactone 12.5 mg 03/02/19 10:00 03/03/19 10:34 Aldactone PO 12.5 mg QDAY SULAIMAN Administration
[2019-03-04] MEDS: ALDACTONE PO SCH (10:20)
[2019-03-04] MEDS: PEPCID PO SCH (10:21)
[2019-03-04] MEDS: LASIX IV SCH ×2 (10:21→21:55)
[2019-03-04] MEDS: COZAAR PO SCH (10:21)
[2019-03-04] MEDS: LOPRESSOR PO SCH ×3 (10:22→20:28)
[2019-03-04] MEDS: ZITHROMAX 500 MG in NACL 0.9% 250ML 250 ML IV SCH ×2 (10:24→11:00)
--- NOTE | 2019-03-04 11:11 | Progress Note ---
Assessment and Plan Acute on chronic HFrEF 15-20% Continue IV diuresis Strict I's and O's Monitor creatinine/magnesium/potassium Cont losartan, metoprolol Cardiomyopathy. unable to pursue an ischemic evaluation at this time due to pt's weight. Cardiac defibrillator (LifeVest) recommended in setting of severe cardiomyopathy Pt is agreeable to LifeVest at this time and will plan to address AICD candidacy as OP. LifeVest ordered. Atrial flutter/tachycardia Recommend this if okay with pulmonary Continue metoprolol 3 times a day Continue amiodarone drip for rate control Acute Hypoxemic Respiratory Failure KURTIS/OHS Morbid Obesity Hypertension Subjective Date of service: 03/04/19 Principal diagnosis: Atrial Fib/flutter with RVR; COPD; AcuteCHF exacerbation; KURTIS/OHS Interval history: Patient sitting up in bed without any significant complaints. No acute distress. Objective Vital Signs Temp Pulse Pulse Resp BP Pulse Ox 03/04/19 07:40 141 H 20 180/122 92 03/04/19 04:10 98.6 F 140 H 18 150/112 92 03/04/19 01:00 108 H 20 94 03/04/19 00:40 137 H 21 97 03/04/19 00:25 98.4 F 137 H 18 155/121 94 03/03/19 21:49 94 03/03/19 20:54 79 143/98 03/03/19 19:40 98.2 F 136 H 18 166/123 95 03/03/19 17:11 98.4 F 137 H 18 154/115 96 03/03/19 15:55 136 H 03/03/19 13:17 88 03/03/19 11:35 120 H 20 165/118 90 - Physical Examination General: No Apparent Distress HEENT: Positive: PERRL, Normocephaly, Mucus Membranes Moist Neck: Positive: neck supple, trachea midline Cardiac: Positive: Tachycardia Lungs: Positive: Decreased Breath Sounds Neuro: Positive: Grossly Intact Abdomen: Positive: Other (obese). Negative: Tender Skin: Negative: Rash Musculoskeletal: No Pain Extremities: Present: +3 Edema (BLE, lymphedema) - Labs and Meds CBC 03/04/19 Range/Units 04:24 Hgb 15.3 H (10.1-14.3) gm/dl Hct 47.8 H (30.3-42.9) % Plt Count 320 (140-440) K/mm3 Comprehensive Metabolic Panel 03/04/19 Range/Units 04:24 Sodium 140 (137-145) mmol/L Potassium 3.8 (3.6-5.0) mmol/L Chloride 98.6 (98-107) mmol/L Carbon Dioxide 30 D (22-30) mmol/L BUN 15 (7-17) mg/dL Creatinine 1.1 (0.7-1.2) mg/dL Glucose 109 H (65-100) mg/dL Calcium 8.9 (8.4-10.2) mg/dL - Imaging and Cardiology EKG: report reviewed, image reviewed Echo: report reviewed (EF 15-20%, RV mildly diated, RA mildly dilated, mild to mod TR, RVSP 34mmHg, trivial pericardial effusion, increased RA pressure. ) - Allied health notes Allied health notes reviewed: nursing
[2019-03-04] MEDS: CORDARONE 900 MG in D5W 482 ML IV SCH (13:22)
--- NOTE | 2019-03-04 15:49 | XRay Report ---
CHEST 1 VIEW INDICATION / CLINICAL INFORMATION: Left arm pain. COMPARISON: None available. FINDINGS: SUPPORT DEVICES: Left arm PICC line terminates at the SVC/right atrial junction.. HEART / MEDIASTINUM: No significant abnormality. LUNGS / PLEURA: No significant pulmonary or pleural abnormality. No pneumothorax. ADDITIONAL FINDINGS: No significant additional findings. IMPRESSION: 1. No acute findings. Signer Name: Justyn Pederson MD Signed: 03/04/2019 3:44 PM Workstation Name: [id number]
[2019-03-04] MEDS: ZITHROMAX PO SCH (18:11)
--- NOTE | 2019-03-04 18:18 | Progress Note ---
Assessment and Plan Patient morbidly Obese. Resting in Bed. On 3 litres O2. O2 saturation 95% . No acute respiratory distress at rest. Patient has symptoms of sleep apnea. Her sleep study 10 years. Recommend sleep study as out patient. - Patient Problems (1) Acute respiratory failure with hypoxemia Current Visit: Yes Status: Acute Plan to address problem: O2 3 litres via nasal canula. BIPAP during night time. Albuterol/atrovent aerosol treatments q 6 hours. Patient is on I/V Heparin. Continue famotidine. Continue Zithromax. (2) Atrial flutter with rapid ventricular response Current Visit: Yes Status: Acute Plan to address problem: Management as per cardiology. Patient is on Amiodorone. Patient is on I/V Heparin. (3) CHF (congestive heart failure) Current Visit: Yes Status: Acute Qualifiers: Heart failure chronicity: acute on chronic Plan to address problem: Management as per cardiology. (4) HTN (hypertension) Current Visit: Yes Status: Chronic Qualifiers: Hypertension type: essential hypertension Qualified Code(s): I10 - Essential (primary) hypertension Plan to address problem: Management as per primary care. (5) History of asthma Current Visit: Yes Status: Chronic Plan to address problem: Albuterol/atrovent aerosol treatments q 6 hours. (6) Morbid obesity Current Visit: Yes Status: Chronic Plan to address problem: Recommend to loose weight. Diet and exercise. (7) Sleep apnea Current Visit: Yes Status: Chronic Qualifiers: Sleep apnea type: unspecified type Qualified Code(s): G47.30 - Sleep apnea, unspecified Plan to address problem: Patient is on BIPAP here. Recommend sleep study as out patient. Subjective Date of service: 03/04/19 Principal diagnosis: Atrial Fib/flutter with RVR; COPD; AcuteCHF exacerbation; KURTIS/OHS Interval history: Patient morbidly Obese. Resting in Bed. On 3 litres O2. O2 saturation 95% . No acute respiratory distress at rest. Patient has symptoms of sleep apnea. Her sleep study 10 years. Recommend sleep study as out patient. Objective Vital Signs - 12hr 03/04/19 03/04/19 03/04/19 07:40 09:00 10:00 Temperature Pulse Rate 141 H Pulse Rate [ 110 H Right Radial] Respiratory 20 Rate Blood Pressure 180/122 O2 Sat by Pulse 92 88 97 Oximetry 03/04/19 03/04/19 12:20 14:00 Temperature 97.0 F L Pulse Rate 126 H 120 H Pulse Rate [ Right Radial] Respiratory 18 Rate Blood Pressure 160/110 O2 Sat by Pulse 95 Oximetry Constitutional: no acute distress, alert, other (Morbidly Obese.) Eyes: non-icteric ENT: oropharynx moist, other (Mallampati 4) Neck: supple, no lymphadenopathy, no JVD, other (large neck circumference) Effort: mildly labored Ascultation: Bilateral: diminished breath sounds Percussion: Bilateral: not dull Cardiovascular: irregular rhythm, other (No R/M) Gastrointestinal: normoactive bowel sounds, soft, non-tender, non-distended Integumentary: rash (stasis dermatitis to lower extremities) Extremities: no cyanosis, pulses normal, no ischemia or petechiae, edema (1+) Neurologic: normal mental status, non-focal exam, pupils equal and round, motor strength normal and Psychiatric: mood appropriate, affect normal CBC and BMP: 03/04/19 04:24 03/04/19 04:24 ABG, PT/INR, D-dimer: ABG POC ABG pH 7.368 (7.35-7.45) 03/01/19 09:46 POC ABG pCO2 43.1 (35-45) 03/01/19 09:46 POC ABG pO2 95 (80-105) 03/01/19 09:46 POC ABG HCO3 24.8 (22-26 mml/L) 03/01/19 09:46 POC ABG Total CO2 26 (23-27mmol/L) 03/01/19 09:46 POC ABG O2 Sat 97 03/01/19 09:46 PT/INR, D-dimer PT 16.9 Sec. (12.2-14.9) H 02/28/19 13:12 INR 1.41 (0.87-1.13) H 02/28/19 13:12 7368.96 ng/mlDDU (0-234) H 02/28/19 13:15 Abnormal lab findings: Abnormal Labs 02/28/19 02/28/19 02/28/19 13:12 13:12 13:12 RBC 5.36 H Hgb 16.3 H Hct 51.3 H RDW 15.6 H [place] % (Auto) [place] # Seg Neutrophils % 78.2 H Seg Neutrophils # 8.4 H PT 16.9 H INR 1.41 H APTT 24.0 L D-Dimer Heparin Anti-Xa Level Carbon Dioxide 17 L BUN 18 H Glucose 195 H POC Glucose Total Bilirubin 1.60 H Alkaline Phosphatase 167 H NT-Pro-B Natriuret Pep 3618 H Albumin 3.7 L 02/28/19 03/01/19 03/01/19 13:15 05:26 05:26 RBC Hgb 14.5 H Hct 44.7 H D RDW [place] % (Auto) 9.0 H [place] # 0.9 H Seg Neutrophils % 72.4 H Seg Neutrophils # PT INR APTT D-Dimer 7368.96 H Heparin Anti-Xa Level Carbon Dioxide BUN 18 H Glucose 118 H POC Glucose Total Bilirubin Alkaline Phosphatase NT-Pro-B Natriuret Pep Albumin 2.8 L 03/01/19 03/01/19 03/02/19 13:11 21:51 11:36 RBC Hgb Hct RDW [place] % (Auto) [place] # Seg Neutrophils % Seg Neutrophils # PT INR APTT D-Dimer Heparin Anti-Xa Level < 0.10 L 0.97 H Carbon Dioxide BUN Glucose POC Glucose 149 H Total Bilirubin Alkaline Phosphatase NT-Pro-B Natriuret Pep Albumin 03/02/19 03/02/19 03/02/19 12:00 12:00 17:56 RBC Hgb 14.9 H Hct 45.9 H RDW [place] % (Auto) [place] # Seg Neutrophils % Seg Neutrophils # PT INR APTT D-Dimer Heparin Anti-Xa Level 0.11 L Carbon Dioxide BUN Glucose POC Glucose 140 H Total Bilirubin Alkaline Phosphatase NT-Pro-B Natriuret Pep Albumin 03/02/19 03/03/19 03/03/19 22:02 20:37 22:22 RBC Hgb Hct RDW [place] % (Auto) [place] # Seg Neutrophils % Seg Neutrophils # PT INR APTT D-Dimer Heparin Anti-Xa Level 0.26 L Carbon Dioxide BUN Glucose POC Glucose 124 H 117 H Total Bilirubin Alkaline Phosphatase NT-Pro-B Natriuret Pep Albumin 03/04/19 03/04/19 03/04/19 04:24 04:24 12:53 RBC Hgb 15.3 H Hct 47.8 H RDW [place] % (Auto) [place] # Seg Neutrophils % Seg Neutrophils # PT INR APTT D-Dimer Heparin Anti-Xa Level Carbon Dioxide BUN Glucose 109 H POC Glucose 122 H Total Bilirubin Alkaline Phosphatase NT-Pro-B Natriuret Pep Albumin 03/04/19 17:20 RBC Hgb Hct RDW [place] % (Auto) [place] # Seg Neutrophils % Seg Neutrophils # PT INR APTT D-Dimer Heparin Anti-Xa Level Carbon Dioxide BUN Glucose POC Glucose 120 H Total Bilirubin Alkaline Phosphatase NT-Pro-B Natriuret Pep Albumin Chest x-ray: report reviewed (Reported no acute findings.), image reviewed Allied health notes reviewed: nursing
[2019-03-05] MEDS: HEPARIN/ 0.45% NACL-25,000 UNIT/500 ML 25,000 UNIT/500 ML BAG IV SCH ×2 (03:23→14:57)
[2019-03-05] MEDS: LASIX IV SCH ×2 (10:12→21:26)
[2019-03-05] MEDS: CORDARONE 900 MG in D5W 482 ML IV SCH (10:12)
[2019-03-05] MEDS: LOPRESSOR PO SCH ×3 (10:12→21:26)
[2019-03-05] MEDS: PEPCID PO SCH (10:12)
[2019-03-05] MEDS: COZAAR PO SCH (10:12)
[2019-03-05] MEDS: SODIUM CHLORIDE FLUSH SYRINGE 10 ML IV SCH ×2 (10:13→21:33)
[2019-03-05] MEDS: ALDACTONE PO SCH (10:13)
[2019-03-05] MEDS: ZITHROMAX PO SCH (10:13)
--- NOTE | 2019-03-05 11:48 | Progress Note ---
Assessment and Plan Acute on chronic HFrEF 15-20% Continue IV diuresis Strict I's and O's Monitor creatinine/magnesium/potassium Cont losartan, metoprolol Cardiomyopathy. unable to pursue an ischemic evaluation at this time due to pt's weight. Cardiac defibrillator (LifeVest) recommended in setting of severe cardiomyopathy Pt is agreeable to LifeVest at this time and will plan to address AICD candidacy as OP. LifeVest ordered. Atrial flutter/tachycardia Continue metoprolol 3 times a day/titrate as tolerated Continue amiodarone drip for rate control Acute Hypoxemic Respiratory Failure KURTIS/OHS Morbid Obesity Hypertension Subjective Date of service: 03/05/19 Principal diagnosis: Atrial Fib/flutter with RVR; COPD; AcuteCHF exacerbation; KURTIS/OHS Interval history: Patient sitting up in bed without any significant complaints. No acute distress. Objective Vital Signs Temp Pulse Pulse Resp BP Pulse Ox 03/05/19 10:00 97 H 97 H 20 95 03/05/19 03:50 98.1 F 118 H 18 130/103 96 03/04/19 23:28 98.1 F 86 18 117/93 94 03/04/19 20:51 126 H 20 95 03/04/19 20:28 126 H 172/122 03/04/19 20:08 134 H 03/04/19 19:57 98 03/04/19 19:16 98.3 F 126 H 18 172/122 95 03/04/19 14:00 120 H 03/04/19 12:20 97.0 F L 126 H 18 160/110 95 - Physical Examination General: No Apparent Distress HEENT: Positive: PERRL, Normocephaly, Mucus Membranes Moist Neck: Positive: neck supple, trachea midline Cardiac: Positive: Tachycardia Lungs: Positive: Decreased Breath Sounds Neuro: Positive: Grossly Intact Abdomen: Positive: Aorta, Other (obese). Negative: Tender Skin: Negative: Rash Musculoskeletal: No Pain Extremities: Present: +1 Edema, warm - Imaging and Cardiology EKG: report reviewed, image reviewed Echo: report reviewed (EF 15-20%, RV mildly diated, RA mildly dilated, mild to mod TR, RVSP 34mmHg, trivial pericardial effusion, increased RA pressure. ) - Allied health notes Allied health notes reviewed: nursing
--- NOTE | 2019-03-05 12:12 | Progress Note ---
Assessment and Plan Assessment and plan: Acute HFrEF. Echo revealed - EF 15-20%, RV mildly diated, RA mildly dilated, mild to mod TR, RVSP 34mmHg, trivial pericardial effusion, increased RA pressure. Cont losartan, aldactone, IV lasix as tolerated. Cardiomyopathy. As above. We are unable to pursue an ischemic evaluation at this time to r/o ischemic CMP due to pt's weight. Cardiac defibrillator (LifeVest) recommended in setting of severe cardiomyopathy. Pt is agreeable to LifeVest at this time and will plan to address AICD candidacy as OP. LifeVest ordered. Acute hypoxic respiratory failure. Etiology multifactorial secondary to acute systolic heart failure, COPD, KURTIS and OHS. Continue BiPAP at night and as clinically indicated. Atrial flutter with rapid ventricular response. Continue amiodarone and increased lopressor dosage per cardiology. DC heparin drip and start Eliquis 5mg BID if okay with pulmonary Hypertension. Continue antihypertensive medications. Morbid obesity. History Interval history: No new issues overnight. Hospitalist Physical - Constitutional Vitals: Temp Pulse Resp BP Pulse Ox 98.1 F 97 H 20 130/103 95 03/05/19 03:50 03/05/19 10:00 03/05/19 10:00 03/05/19 03:50 03/05/19 10:00 General appearance: Present: no acute distress, obese - EENT Eyes: Present: PERRL, EOM intact ENT: hearing intact, clear oral mucosa, dentition normal - Neck Neck: Present: supple, normal ROM - Respiratory Respiratory effort: normal Respiratory: bilateral: CTA - Cardiovascular Rhythm: regular Heart Sounds: Present: S1 & S2. Absent: gallop, rub - Extremities Extremities: no ischemia, No edema, Full ROM - Abdominal General gastrointestinal: soft, non-tender, non-distended, normal bowel sounds - Integumentary Integumentary: Present: clear, warm, dry - Neurologic Neurologic: CNII-XII intact, moves all extremities Results - Labs CBC & Chem 7: 03/04/19 04:24 03/04/19 04:24 Labs: Laboratory Last Values WBC 9.5 K/mm3 (4.5-11.0) 03/01/19 05:26 RBC 4.72 M/mm3 (3.65-5.03) 03/01/19 05:26 Hgb 15.3 gm/dl (10.1-14.3) H 03/04/19 04:24 Hct 47.8 % (30.3-42.9) H 03/04/19 04:24 MCV 95 fl (79-97) 03/01/19 05:26 MCH 31 pg (28-32) 03/01/19 05:26 MCHC 32 % (30-34) 03/01/19 05:26 RDW 15.1 % (13.2-15.2) 03/01/19 05:26 Plt Count 320 K/mm3 (140-440) 03/04/19 04:24 Lymph % (Auto) 16.9 % (13.4-35.0) 03/01/19 05:26 [place] % (Auto) 9.0 % (0.0-7.3) H 03/01/19 05:26 Eos % (Auto) 0.7 % (0.0-4.3) 03/01/19 05:26 Baso % (Auto) 1.0 % (0.0-1.8) 03/01/19 05:26 Lymph # 1.6 K/mm3 (1.2-5.4) 03/01/19 05:26 [place] # 0.9 K/mm3 (0.0-0.8) H 03/01/19 05:26 Eos # 0.1 K/mm3 (0.0-0.4) 03/01/19 05:26 Baso # 0.1 K/mm3 (0.0-0.1) 03/01/19 05:26 Seg Neutrophils % 72.4 % (40.0-70.0) H 03/01/19 05:26 Seg Neutrophils # 6.9 K/mm3 (1.8-7.7) 03/01/19 05:26 PT 16.9 Sec. (12.2-14.9) H 02/28/19 13:12 INR 1.41 (0.87-1.13) H 02/28/19 13:12 APTT 24.0 Sec. (24.2-36.6) L 02/28/19 13:12 7368.96 ng/mlDDU (0-234) H 02/28/19 13:15 Heparin Anti-Xa Level < 0.10 U.I./ml (0.3-0.7) L 03/05/19 07:46 POC ABG pH 7.368 (7.35-7.45) 03/01/19 09:46 POC ABG pCO2 43.1 (35-45) 03/01/19 09:46 POC ABG pO2 95 (80-105) 03/01/19 09:46 POC ABG HCO3 24.8 (22-26 mml/L) 03/01/19 09:46 POC ABG Total CO2 26 (23-27mmol/L) 03/01/19 09:46 POC ABG O2 Sat 97 03/01/19 09:46 POC ABG Base Excess 0 ((-2) - (+3)mmol/L) 03/01/19 09:46 50 % 03/01/19 09:46 Sodium 140 mmol/L (137-145) 03/04/19 04:24 Potassium 3.8 mmol/L (3.6-5.0) 03/04/19 04:24 Chloride 98.6 mmol/L (98-107) 03/04/19 04:24 Carbon Dioxide 30 mmol/L (22-30) D 03/04/19 04:24 15 mmol/L 03/04/19 04:24 BUN 15 mg/dL (7-17) 03/04/19 04:24 1.1 mg/dL (0.7-1.2) 03/04/19 04:24 Estimated GFR > 60 ml/min 03/04/19 04:24 14 % 03/04/19 04:24 Glucose 109 mg/dL (65-100) H 03/04/19 04:24 POC Glucose 118 (70-105) H 03/05/19 11:15 Calcium 8.9 mg/dL (8.4-10.2) 03/04/19 04:24 Magnesium 1.80 mg/dL (1.7-2.3) 02/28/19 21:38 1.00 mg/dL (0.1-1.2) 03/01/19 05:26 AST 23 units/L (5-40) 03/01/19 05:26 ALT 21 units/L (7-56) 03/01/19 05:26 128 units/L (35-129) 03/01/19 05:26 < 0.010 ng/mL (0.00-0.029) 02/28/19 21:38 NT-Pro-B Natriuret Pep 3618 pg/mL (0-900) H 02/28/19 13:12 6.4 g/dL (6.3-8.2) 03/01/19 05:26 2.8 g/dL (3.9-5) L 03/01/19 05:26 0.8 % 03/01/19 05:26 TSH 2.830 mlU/mL (0.270-4.200) 02/28/19 21:38 TSH 2.870 mlU/mL (0.270-4.200) 02/28/19 21:38 Free T4 1.24 ng/dL (0.76-1.46) 02/28/19 21:38 Free T4 1.26 ng/dL (0.76-1.46) 02/28/19 21:38 Yellow (Yellow) 02/28/19 18:00 Slightly-cloudy (Clear) 02/28/19 18:00 5.0 (5.0-7.0) 02/28/19 18:00 Ur Specific [place] 1.008 (1.003-1.030) 02/28/19 18:00 <15 mg/dl mg/dL (Negative) 02/28/19 18:00 Neg mg/dL (Negative) 02/28/19 18:00 Neg mg/dL (Negative) 02/28/19 18:00 Sm (Negative) 02/28/19 18:00 Neg (Negative) 02/28/19 18:00 Neg (Negative) 02/28/19 18:00 < 2.0 mg/dL (<2.0) 02/28/19 18:00 Ur Leukocyte Esterase Neg (Negative) 02/28/19 18:00 < 1.0 /HPF (0.0-6.0) 02/28/19 18:00 1.0 /HPF (0.0-6.0) 02/28/19 18:00 U Epithel Cells (Auto) 1.0 /HPF (0-13.0) 02/28/19 18:00 1+ /HPF (Negative) 02/28/19 18:00 Hyaline Casts 1 /LPF 02/28/19 18:00 Few /HPF 02/28/19 18:00 Active Medications - Current Medications Current Medications: Generic Name Dose Route Start Last Admin Trade Name Princess PRN Reason Stop Dose Admin Acetaminophen 650 mg 02/28/19 17:01 03/03/19 20:37 Tylenol PO 650 mg Q4H PRN Administration Pain MILD(1-3)/Fever >100.5/TAYLOR Azithromycin 500 mg 03/04/19 18:00 03/05/19 10:13 Zithromax PO 500 mg QDAY SULAIMAN Administration Famotidine 20 mg 03/02/19 15:00 03/05/19 10:12 Pepcid PO 20 mg QDAY SULAIMAN Administration Furosemide 40 mg 02/28/19 16:00 03/05/19 10:12 Lasix IV 40 mg BID SULAIMAN Administration Heparin Sodium/Sodium Chloride 25,000 unit in 500 mls @ 30 mls/hr 02/28/19 16:00 03/05/19 03:23 Heparin/ 0.45% Nacl-25,000 Unit/500 Ml IV 2,500 units/hr TITR SULAIMAN 50 mls/hr Administration Protocol 1,500 UNITS/HR Amiodarone HCl 900 mg/ 500 mls @ 33.333 mls/hr 03/04/19 12:00 03/05/19 10:12 Dextrose IV 1 mg/min DIRECT SULAIMAN 33.333 mls/hr Administration Protocol 1 MG/MIN Losartan Potassium 12.5 mg 03/02/19 10:00 03/05/19 10:12 Cozaar PO 12.5 mg QDAY SULAIMAN Administration Metoprolol Tartrate 50 mg 03/03/19 14:00 03/05/19 10:12 Lopressor PO 50 mg TID SULAIMAN Administration Ondansetron HCl 4 mg 02/28/19 17:01 Zofran IV Q8H PRN Nausea And Vomiting Sodium Chloride 10 ml 02/28/19 22:00 03/05/19 10:13 Sodium Chloride Flush Syringe 10 Ml IV 10 ml BID SULAIMAN Administration Sodium Chloride 10 ml 02/28/19 17:01 Sodium Chloride Flush Syringe 10 Ml IV PRN PRN LINE FLUSH Spironolactone 12.5 mg 03/02/19 10:00 03/05/19 10:13 Aldactone PO 12.5 mg QDAY SULAIMAN Administration
--- NOTE | 2019-03-05 15:33 | Progress Note ---
Assessment and Plan Patient morbidly Obese. Resting in Bed. On 3 litres O2. O2 saturation 95% . No acute respiratory distress at rest. Patient has symptoms of sleep apnea. Her sleep study 10 years. Recommend sleep study as out patient. - Patient Problems (1) Acute respiratory failure with hypoxemia Current Visit: Yes Status: Acute Plan to address problem: O2 3 litres via nasal canula. BIPAP during night time. Albuterol/atrovent aerosol treatments q 6 hours. Patient is on I/V Heparin. Continue famotidine. Continue Zithromax. (2) Atrial flutter with rapid ventricular response Current Visit: Yes Status: Acute Plan to address problem: Management as per cardiology. Patient is on Amiodorone. Patient is on I/V Heparin. (3) CHF (congestive heart failure) Current Visit: Yes Status: Acute Qualifiers: Heart failure chronicity: acute on chronic Plan to address problem: Management as per cardiology. (4) HTN (hypertension) Current Visit: Yes Status: Chronic Qualifiers: Hypertension type: essential hypertension Qualified Code(s): I10 - Essential (primary) hypertension Plan to address problem: Management as per primary care. (5) History of asthma Current Visit: Yes Status: Chronic Plan to address problem: Albuterol/atrovent aerosol treatments q 6 hours. (6) Morbid obesity Current Visit: Yes Status: Chronic Plan to address problem: Recommend to loose weight. Diet and exercise. (7) Sleep apnea Current Visit: Yes Status: Chronic Qualifiers: Sleep apnea type: unspecified type Qualified Code(s): G47.30 - Sleep apnea, unspecified Plan to address problem: Patient is on BIPAP here. Recommend sleep study as out patient. Subjective Date of service: 03/05/19 Principal diagnosis: Atrial Fib/flutter with RVR; COPD; AcuteCHF exacerbation; KURTIS/OHS Interval history: Patient morbidly Obese. Resting in Bed. On 3 litres O2. O2 saturation 95% . No acute respiratory distress at rest. Patient has symptoms of sleep apnea. Her sleep study 10 years. Recommend sleep study as out patient. Objective Vital Signs - 12hr 03/05/19 03/05/19 03:50 10:00 Temperature 98.1 F Pulse Rate 118 H 97 H Pulse Rate [ 97 H Apical] Respiratory 18 20 Rate Blood Pressure 130/103 O2 Sat by Pulse 96 95 Oximetry Constitutional: no acute distress, alert, other (Morbidly Obese.) Eyes: non-icteric ENT: oropharynx moist, other (Mallampati 4) Neck: supple, no lymphadenopathy, no JVD, other (large neck circumference) Effort: mildly labored Ascultation: Bilateral: diminished breath sounds Percussion: Bilateral: not dull Cardiovascular: irregular rhythm, other (No R/M) Gastrointestinal: normoactive bowel sounds, soft, non-tender, non-distended Integumentary: rash (stasis dermatitis to lower extremities) Extremities: no cyanosis, pulses normal, no ischemia or petechiae, edema (1+) Neurologic: normal mental status, non-focal exam, pupils equal and round, motor strength normal and Psychiatric: mood appropriate, affect normal CBC and BMP: 03/04/19 04:24 03/04/19 04:24 ABG, PT/INR, D-dimer: ABG POC ABG pH 7.368 (7.35-7.45) 03/01/19 09:46 POC ABG pCO2 43.1 (35-45) 03/01/19 09:46 POC ABG pO2 95 (80-105) 03/01/19 09:46 POC ABG HCO3 24.8 (22-26 mml/L) 03/01/19 09:46 POC ABG Total CO2 26 (23-27mmol/L) 03/01/19 09:46 POC ABG O2 Sat 97 03/01/19 09:46 PT/INR, D-dimer PT 16.9 Sec. (12.2-14.9) H 02/28/19 13:12 INR 1.41 (0.87-1.13) H 02/28/19 13:12 7368.96 ng/mlDDU (0-234) H 02/28/19 13:15 Abnormal lab findings: Abnormal Labs 02/28/19 02/28/19 02/28/19 13:12 13:12 13:12 RBC 5.36 H Hgb 16.3 H Hct 51.3 H RDW 15.6 H [place] % (Auto) [place] # Seg Neutrophils % 78.2 H Seg Neutrophils # 8.4 H PT 16.9 H INR 1.41 H APTT 24.0 L D-Dimer Heparin Anti-Xa Level Carbon Dioxide 17 L BUN 18 H Glucose 195 H POC Glucose Total Bilirubin 1.60 H Alkaline Phosphatase 167 H NT-Pro-B Natriuret Pep 3618 H Albumin 3.7 L 02/28/19 03/01/19 03/01/19 13:15 05:26 05:26 RBC Hgb 14.5 H Hct 44.7 H D RDW [place] % (Auto) 9.0 H [place] # 0.9 H Seg Neutrophils % 72.4 H Seg Neutrophils # PT INR APTT D-Dimer 7368.96 H Heparin Anti-Xa Level Carbon Dioxide BUN 18 H Glucose 118 H POC Glucose Total Bilirubin Alkaline Phosphatase NT-Pro-B Natriuret Pep Albumin 2.8 L 03/01/19 03/01/19 03/02/19 13:11 21:51 11:36 RBC Hgb Hct RDW [place] % (Auto) [place] # Seg Neutrophils % Seg Neutrophils # PT INR APTT D-Dimer Heparin Anti-Xa Level < 0.10 L 0.97 H Carbon Dioxide BUN Glucose POC Glucose 149 H Total Bilirubin Alkaline Phosphatase NT-Pro-B Natriuret Pep Albumin 03/02/19 03/02/19 03/02/19 12:00 12:00 17:56 RBC Hgb 14.9 H Hct 45.9 H RDW [place] % (Auto) [place] # Seg Neutrophils % Seg Neutrophils # PT INR APTT D-Dimer Heparin Anti-Xa Level 0.11 L Carbon Dioxide BUN Glucose POC Glucose 140 H Total Bilirubin Alkaline Phosphatase NT-Pro-B Natriuret Pep Albumin 03/02/19 03/03/19 03/03/19 22:02 20:37 22:22 RBC Hgb Hct RDW [place] % (Auto) [place] # Seg Neutrophils % Seg Neutrophils # PT INR APTT D-Dimer Heparin Anti-Xa Level 0.26 L Carbon Dioxide BUN Glucose POC Glucose 124 H 117 H Total Bilirubin Alkaline Phosphatase NT-Pro-B Natriuret Pep Albumin 03/04/19 03/04/19 03/04/19 04:24 04:24 12:53 RBC Hgb 15.3 H Hct 47.8 H RDW [place] % (Auto) [place] # Seg Neutrophils % Seg Neutrophils # PT INR APTT D-Dimer Heparin Anti-Xa Level Carbon Dioxide BUN Glucose 109 H POC Glucose 122 H Total Bilirubin Alkaline Phosphatase NT-Pro-B Natriuret Pep Albumin 03/04/19 03/05/19 03/05/19 17:20 07:46 07:56 RBC Hgb Hct RDW [place] % (Auto) [place] # Seg Neutrophils % Seg Neutrophils # PT INR APTT D-Dimer Heparin Anti-Xa Level < 0.10 L Carbon Dioxide BUN Glucose POC Glucose 120 H 124 H Total Bilirubin Alkaline Phosphatase NT-Pro-B Natriuret Pep Albumin 03/05/19 11:15 RBC Hgb Hct RDW [place] % (Auto) [place] # Seg Neutrophils % Seg Neutrophils # PT INR APTT D-Dimer Heparin Anti-Xa Level Carbon Dioxide BUN Glucose POC Glucose 118 H Total Bilirubin Alkaline Phosphatase NT-Pro-B Natriuret Pep Albumin Allied health notes reviewed: nursing
[2019-03-05] MEDS: MORPHINE IV PRN (21:21)
[2019-03-05] MEDS ORDERED: HEPARIN 10,000 UNITS/10 ML IV ONE (22:07)
[2019-03-06] MEDS: HEPARIN/ 0.45% NACL-25,000 UNIT/500 ML 25,000 UNIT/500 ML BAG IV SCH ×4 (02:34→18:23)
[2019-03-06] MEDS: CORDARONE 900 MG in D5W 482 ML IV SCH (02:36)
[2019-03-06 06:30] LABS: Hematocrit 44.4 % (30.3-42.9); Hemoglobin 14.5 gm/dl (10.1-14.3)
[2019-03-06 07:08] LABS: BUN/Creatinine Ratio 15; Blood Urea Nitrogen 15 mg/dL (7-17); Calcium 8.7 mg/dL (8.4-10.2); Hemolysis Index 2
[2019-03-06] MEDS: COZAAR PO SCH (09:27)
[2019-03-06] MEDS: LOPRESSOR PO SCH ×3 (09:27→21:23)
[2019-03-06] MEDS: ALDACTONE PO SCH (09:28)
[2019-03-06] MEDS: PEPCID PO SCH (09:28)
[2019-03-06] MEDS: ZITHROMAX PO SCH (09:28)
[2019-03-06] MEDS: SODIUM CHLORIDE FLUSH SYRINGE 10 ML IV SCH ×2 (09:29→21:24)
[2019-03-06] MEDS: LASIX IV SCH ×2 (09:29→21:24)
[2019-03-06] MEDS: MORPHINE IV PRN (10:29)
[2019-03-06] MEDS ORDERED: K-DUR PO NR (11:00)
--- NOTE | 2019-03-06 11:45 | Progress Note ---
Assessment and Plan Assessment and plan: Acute HFrEF. Echo revealed - EF 15-20%, RV mildly diated, RA mildly dilated, mild to mod TR, RVSP 34mmHg, trivial pericardial effusion, increased RA pressure. Cont losartan, aldactone, IV lasix as tolerated. Cardiomyopathy. As above. We are unable to pursue an ischemic evaluation at this time to r/o ischemic CMP due to pt's weight. Cardiac defibrillator (LifeVest) recommended in setting of severe cardiomyopathy. Pt is agreeable to LifeVest at this time and will plan to address AICD candidacy as OP. LifeVest ordered. Hypokalemia. Replete potassium. Follow-up BMP in a.m. Acute hypoxic respiratory failure. Etiology multifactorial secondary to acute systolic heart failure, COPD, KURTIS and OHS. Continue BiPAP at night and as clinically indicated. Atrial flutter with rapid ventricular response. Continue amiodarone and increased lopressor dosage per cardiology. DC heparin drip and start Eliquis 5mg BID if okay with pulmonary Hypertension. Continue antihypertensive medications. Morbid obesity. History Interval history: No new issues overnight. Hospitalist Physical - Constitutional Vitals: Temp Pulse Resp BP Pulse Ox 97.6 F 103 H 20 142/97 94 03/06/19 08:49 03/06/19 11:08 03/06/19 11:08 03/06/19 11:08 03/06/19 11:08 General appearance: Present: no acute distress, obese - EENT Eyes: Present: PERRL, EOM intact ENT: hearing intact, clear oral mucosa, dentition normal - Neck Neck: Present: supple, normal ROM - Respiratory Respiratory effort: normal Respiratory: bilateral: CTA - Cardiovascular Rhythm: regular Heart Sounds: Present: S1 & S2. Absent: gallop, rub - Extremities Extremities: no ischemia, No edema, Full ROM - Abdominal General gastrointestinal: soft, non-tender, non-distended, normal bowel sounds - Integumentary Integumentary: Present: clear, warm, dry - Neurologic Neurologic: CNII-XII intact, moves all extremities Results - Labs CBC & Chem 7: 03/06/19 06:05 03/06/19 06:05 Labs: Laboratory Last Values WBC 9.5 K/mm3 (4.5-11.0) 03/01/19 05:26 RBC 4.72 M/mm3 (3.65-5.03) 03/01/19 05:26 Hgb 14.5 gm/dl (10.1-14.3) H 03/06/19 06:05 Hct 44.4 % (30.3-42.9) H 03/06/19 06:05 MCV 95 fl (79-97) 03/01/19 05:26 MCH 31 pg (28-32) 03/01/19 05:26 MCHC 32 % (30-34) 03/01/19 05:26 RDW 15.1 % (13.2-15.2) 03/01/19 05:26 Plt Count 260 K/mm3 (140-440) 03/06/19 06:05 Lymph % (Auto) 16.9 % (13.4-35.0) 03/01/19 05:26 [place] % (Auto) 9.0 % (0.0-7.3) H 03/01/19 05:26 Eos % (Auto) 0.7 % (0.0-4.3) 03/01/19 05:26 Baso % (Auto) 1.0 % (0.0-1.8) 03/01/19 05:26 Lymph # 1.6 K/mm3 (1.2-5.4) 03/01/19 05:26 [place] # 0.9 K/mm3 (0.0-0.8) H 03/01/19 05:26 Eos # 0.1 K/mm3 (0.0-0.4) 03/01/19 05:26 Baso # 0.1 K/mm3 (0.0-0.1) 03/01/19 05:26 Seg Neutrophils % 72.4 % (40.0-70.0) H 03/01/19 05:26 Seg Neutrophils # 6.9 K/mm3 (1.8-7.7) 03/01/19 05:26 PT 16.9 Sec. (12.2-14.9) H 02/28/19 13:12 INR 1.41 (0.87-1.13) H 02/28/19 13:12 APTT 24.0 Sec. (24.2-36.6) L 02/28/19 13:12 7368.96 ng/mlDDU (0-234) H 02/28/19 13:15 Heparin Anti-Xa Level 1.52 U.I./ml (0.3-0.7) H 03/06/19 08:00 POC ABG pH 7.368 (7.35-7.45) 03/01/19 09:46 POC ABG pCO2 43.1 (35-45) 03/01/19 09:46 POC ABG pO2 95 (80-105) 03/01/19 09:46 POC ABG HCO3 24.8 (22-26 mml/L) 03/01/19 09:46 POC ABG Total CO2 26 (23-27mmol/L) 03/01/19 09:46 POC ABG O2 Sat 97 03/01/19 09:46 POC ABG Base Excess 0 ((-2) - (+3)mmol/L) 03/01/19 09:46 50 % 03/01/19 09:46 Sodium 140 mmol/L (137-145) 03/06/19 06:05 Potassium 2.9 mmol/L (3.6-5.0) L* D 03/06/19 06:05 Chloride 97.2 mmol/L (98-107) L 03/06/19 06:05 Carbon Dioxide 31 mmol/L (22-30) H 03/06/19 06:05 15 mmol/L 03/06/19 06:05 BUN 15 mg/dL (7-17) 03/06/19 06:05 1.0 mg/dL (0.7-1.2) 03/06/19 06:05 Estimated GFR > 60 ml/min 03/06/19 06:05 15 % 03/06/19 06:05 Glucose 96 mg/dL (65-100) 03/06/19 06:05 POC Glucose 118 (70-105) H 03/05/19 11:15 Calcium 8.7 mg/dL (8.4-10.2) 03/06/19 06:05 Magnesium 1.80 mg/dL (1.7-2.3) 02/28/19 21:38 1.00 mg/dL (0.1-1.2) 03/01/19 05:26 AST 23 units/L (5-40) 03/01/19 05:26 ALT 21 units/L (7-56) 03/01/19 05:26 128 units/L (35-129) 03/01/19 05:26 < 0.010 ng/mL (0.00-0.029) 02/28/19 21:38 NT-Pro-B Natriuret Pep 3618 pg/mL (0-900) H 02/28/19 13:12 6.4 g/dL (6.3-8.2) 03/01/19 05:26 2.8 g/dL (3.9-5) L 03/01/19 05:26 0.8 % 03/01/19 05:26 TSH 2.830 mlU/mL (0.270-4.200) 02/28/19 21:38 TSH 2.870 mlU/mL (0.270-4.200) 02/28/19 21:38 Free T4 1.24 ng/dL (0.76-1.46) 02/28/19 21:38 Free T4 1.26 ng/dL (0.76-1.46) 02/28/19 21:38 Yellow (Yellow) 02/28/19 18:00 Slightly-cloudy (Clear) 02/28/19 18:00 5.0 (5.0-7.0) 02/28/19 18:00 Ur Specific [place] 1.008 (1.003-1.030) 02/28/19 18:00 <15 mg/dl mg/dL (Negative) 02/28/19 18:00 Neg mg/dL (Negative) 02/28/19 18:00 Neg mg/dL (Negative) 02/28/19 18:00 Sm (Negative) 02/28/19 18:00 Neg (Negative) 02/28/19 18:00 Neg (Negative) 02/28/19 18:00 < 2.0 mg/dL (<2.0) 02/28/19 18:00 Ur Leukocyte Esterase Neg (Negative) 02/28/19 18:00 < 1.0 /HPF (0.0-6.0) 02/28/19 18:00 1.0 /HPF (0.0-6.0) 02/28/19 18:00 U Epithel Cells (Auto) 1.0 /HPF (0-13.0) 02/28/19 18:00 1+ /HPF (Negative) 02/28/19 18:00 Hyaline Casts 1 /LPF 02/28/19 18:00 Few /HPF 02/28/19 18:00 Active Medications - Current Medications Current Medications: Generic Name Dose Route Start Last Admin Trade Name Freq PRN Reason Stop Dose Admin Acetaminophen 650 mg 02/28/19 17:01 03/03/19 20:37 Tylenol PO 650 mg Q4H PRN Administration Pain MILD(1-3)/Fever >100.5/TAYLOR Azithromycin 500 mg 03/04/19 18:00 03/06/19 09:28 Zithromax PO 500 mg QDAY SULAIMAN Administration Famotidine 20 mg 03/02/19 15:00 03/06/19 09:28 Pepcid PO 20 mg QDAY SULAIMAN Administration Furosemide 40 mg 02/28/19 16:00 03/06/19 09:29 Lasix IV 40 mg BID SULAIMAN Administration Heparin Sodium/Sodium Chloride 25,000 unit in 500 mls @ 30 mls/hr 02/28/19 16:00 03/06/19 10:35 Heparin/ 0.45% Nacl-25,000 Unit/500 Ml IV 2,000 units/hr TITR SULAIMAN 40 mls/hr Administration Protocol 1,500 UNITS/HR Amiodarone HCl 900 mg/ 500 mls @ 33.333 mls/hr 03/04/19 12:00 03/06/19 02:36 Dextrose IV 0.5 mg/min DIRECT SULAIMAN 16.667 mls/hr Administration Protocol 1 MG/MIN Losartan Potassium 12.5 mg 03/02/19 10:00 03/06/19 09:27 Cozaar PO 12.5 mg QDAY SULAIMAN Administration Metoprolol Tartrate 50 mg 03/03/19 14:00 03/06/19 09:27 Lopressor PO 50 mg TID SULAIMAN Administration Morphine Sulfate 2 mg 03/05/19 21:03 03/06/19 10:29 Morphine IV 2 mg Q4H PRN Administration Pain, Moderate (4-6) Ondansetron HCl 4 mg 02/28/19 17:01 Zofran IV Q8H PRN Nausea And Vomiting Potassium Chloride 40 meq 03/06/19 11:00 03/06/19 11:05 K-Dur PO 03/06/19 18:00 40 meq ONCE NR Administration Sodium Chloride 10 ml 02/28/19 22:00 03/06/19 09:29 Sodium Chloride Flush Syringe 10 Ml IV 10 ml BID SULAIMAN Administration Sodium Chloride 10 ml 02/28/19 17:01 Sodium Chloride Flush Syringe 10 Ml IV PRN PRN LINE FLUSH Spironolactone 12.5 mg 03/02/19 10:00 03/06/19 09:28 Aldactone PO 12.5 mg QDAY SULAIMAN Administration
--- NOTE | 2019-03-06 14:02 | Progress Note ---
Assessment and Plan Continue HF therapies. We will optimize AV blocking regimen. - Patient Problems (1) Acute respiratory failure with hypoxemia Current Visit: Yes Status: Acute (2) Atrial flutter with rapid ventricular response Current Visit: Yes Status: Acute (3) Acute on chronic HFrEF (heart failure with reduced ejection fraction) Current Visit: Yes Status: Acute (4) Cardiomyopathy Current Visit: Yes Status: Chronic (5) KURTIS (obstructive sleep apnea) Current Visit: Yes Status: Chronic (6) Obesity hypoventilation syndrome Current Visit: Yes Status: Chronic (7) HTN (hypertension) Current Visit: Yes Status: Chronic Qualifiers: Hypertension type: essential hypertension Qualified Code(s): I10 - Essential (primary) hypertension (8) Morbid obesity Current Visit: Yes Status: Chronic Subjective Date of service: 03/06/19 Principal diagnosis: AFlutter with RVR, Acute on chronic HDrEF, CMP, KURTIS/OHS, HTN, Morbid Obesit Interval history: She complains of intermittent chest tightness. Objective Vital Signs Temp Pulse Pulse Resp BP BP BP 03/06/19 11:08 103 H 20 142/97 03/06/19 10:00 108 H 114 H 22 03/06/19 09:28 114 H 174/112 03/06/19 09:27 114 H 174/112 03/06/19 08:49 97.6 F 117 H 20 174/112 03/06/19 04:00 98.2 F 116 H 16 161/100 03/05/19 23:57 03/05/19 23:23 97.6 F 92 H 20 125/89 03/05/19 22:00 117 H 22 03/05/19 19:28 101 H 03/05/19 19:25 98.3 F 117 H 22 100/83 03/05/19 16:20 105 H 116/84 Pulse Ox 03/06/19 11:08 94 03/06/19 10:00 95 03/06/19 09:28 03/06/19 09:27 03/06/19 08:49 97 03/06/19 04:00 96 03/05/19 23:57 94 03/05/19 23:23 88 03/05/19 22:00 93 03/05/19 19:28 03/05/19 19:25 93 03/05/19 16:20 90 - Physical Examination General: No Apparent Distress HEENT: Positive: EOMI, Normocephaly, Mucus Membranes Moist Neck: Positive: neck supple, trachea midline Cardiac: Positive: Irregularly Regular, S1/S2 Lungs: Positive: clear to auscultation Neuro: Positive: Grossly Intact Abdomen: Positive: Soft, Active Bowel Sounds. Negative: Tender Skin: Negative: Rash Musculoskeletal: Normal Range of Motion Extremities: Present: +1 Edema (pitting bilateral leg edema), warm - Labs and Meds CBC 03/06/19 Range/Units 06:05 Hgb 14.5 H (10.1-14.3) gm/dl Hct 44.4 H (30.3-42.9) % Plt Count 260 (140-440) K/mm3 Comprehensive Metabolic Panel 03/06/19 Range/Units 06:05 Sodium 140 (137-145) mmol/L Potassium 2.9 L* D (3.6-5.0) mmol/L Chloride 97.2 L (98-107) mmol/L Carbon Dioxide 31 H (22-30) mmol/L BUN 15 (7-17) mg/dL Creatinine 1.0 (0.7-1.2) mg/dL Glucose 96 (65-100) mg/dL Calcium 8.7 (8.4-10.2) mg/dL - Imaging and Cardiology Echo: report reviewed (EF 15-20%, RV mildly diated, RA mildly dilated, mild to mod TR, RVSP 34mmHg, trivial pericardial effusion, increased RA pressure. ) - Telemetry EKG Rhythm: Atrial Flutter (with RVR) - Allied health notes Allied health notes reviewed: nursing
--- NOTE | 2019-03-06 16:23 | Progress Note ---
Assessment and Plan Patient morbidly Obese. Resting in Bed. On 3 litres O2. O2 saturation 94% . No acute respiratory distress at rest. Patient has symptoms of sleep apnea. Her sleep study 10 years. Recommend sleep study as out patient. - Patient Problems (1) Acute respiratory failure with hypoxemia Current Visit: Yes Status: Acute Plan to address problem: O2 3 litres via nasal canula. BIPAP during night time. Albuterol/atrovent aerosol treatments q 6 hours. Patient is on I/V Heparin. Continue famotidine. Continue Zithromax. (2) Atrial flutter with rapid ventricular response Current Visit: Yes Status: Acute Plan to address problem: Management as per cardiology. Patient is on Amiodorone. Patient is on I/V Heparin. (3) CHF (congestive heart failure) Current Visit: Yes Status: Acute Qualifiers: Heart failure chronicity: acute on chronic Plan to address problem: Management as per cardiology. (4) HTN (hypertension) Current Visit: Yes Status: Chronic Qualifiers: Hypertension type: essential hypertension Qualified Code(s): I10 - Essential (primary) hypertension Plan to address problem: Management as per primary care. (5) History of asthma Current Visit: Yes Status: Chronic Plan to address problem: Albuterol/atrovent aerosol treatments q 6 hours. (6) Morbid obesity Current Visit: Yes Status: Chronic Plan to address problem: Recommend to loose weight. Diet and exercise. (7) Sleep apnea Current Visit: Yes Status: Chronic Qualifiers: Sleep apnea type: unspecified type Qualified Code(s): G47.30 - Sleep apnea, unspecified Plan to address problem: Patient is on BIPAP here. Recommend sleep study as out patient. Subjective Date of service: 03/06/19 Principal diagnosis: AFlutter with RVR, Acute on chronic HDrEF, CMP, KURTIS/OHS, HTN, Morbid Obesit Interval history: Patient morbidly Obese. Resting in Bed. On 3 litres O2. O2 saturation 94% . No acute respiratory distress at rest. Patient has symptoms of sleep apnea. Her sleep study 10 years. Recommend sleep study as out patient. Objective Vital Signs - 12hr 03/06/19 03/06/19 03/06/19 08:49 09:27 09:28 Temperature 97.6 F Pulse Rate 117 H 114 H 114 H Pulse Rate [ Apical] Respiratory 20 Rate Blood Pressure 174/112 174/112 174/112 Blood Pressure [Right] O2 Sat by Pulse 97 Oximetry 03/06/19 03/06/19 03/06/19 10:00 11:08 14:20 Temperature Pulse Rate 108 H 103 H 106 H Pulse Rate [ 114 H Apical] Respiratory 22 20 Rate Blood Pressure 160/100 Blood Pressure 142/97 [Right] O2 Sat by Pulse 100 94 Oximetry Constitutional: no acute distress, alert, other (Morbidly Obese.) Eyes: non-icteric ENT: oropharynx moist, other (Mallampati 4) Neck: supple, no lymphadenopathy, no JVD, other (large neck circumference) Effort: mildly labored Ascultation: Bilateral: clear, diminished breath sounds Percussion: Bilateral: not dull Cardiovascular: irregular rhythm, other (No R/M) Gastrointestinal: normoactive bowel sounds, soft, non-tender, non-distended Integumentary: rash (stasis dermatitis to lower extremities) Extremities: no cyanosis, pulses normal, no ischemia or petechiae, edema (1+) Neurologic: normal mental status, non-focal exam, pupils equal and round, motor strength normal and Psychiatric: mood appropriate, affect normal CBC and BMP: 03/06/19 06:05 03/06/19 06:05 ABG, PT/INR, D-dimer: ABG POC ABG pH 7.368 (7.35-7.45) 03/01/19 09:46 POC ABG pCO2 43.1 (35-45) 03/01/19 09:46 POC ABG pO2 95 (80-105) 03/01/19 09:46 POC ABG HCO3 24.8 (22-26 mml/L) 03/01/19 09:46 POC ABG Total CO2 26 (23-27mmol/L) 03/01/19 09:46 POC ABG O2 Sat 97 03/01/19 09:46 PT/INR, D-dimer PT 16.9 Sec. (12.2-14.9) H 02/28/19 13:12 INR 1.41 (0.87-1.13) H 02/28/19 13:12 7368.96 ng/mlDDU (0-234) H 02/28/19 13:15 Abnormal lab findings: Abnormal Labs 02/28/19 02/28/19 02/28/19 13:12 13:12 13:12 RBC 5.36 H Hgb 16.3 H Hct 51.3 H RDW 15.6 H [place] % (Auto) [place] # Seg Neutrophils % 78.2 H Seg Neutrophils # 8.4 H PT 16.9 H INR 1.41 H APTT 24.0 L D-Dimer Heparin Anti-Xa Level Potassium Chloride Carbon Dioxide 17 L BUN 18 H Glucose 195 H POC Glucose Total Bilirubin 1.60 H Alkaline Phosphatase 167 H NT-Pro-B Natriuret Pep 3618 H Albumin 3.7 L 02/28/19 03/01/19 03/01/19 13:15 05:26 05:26 RBC Hgb 14.5 H Hct 44.7 H D RDW [place] % (Auto) 9.0 H [place] # 0.9 H Seg Neutrophils % 72.4 H Seg Neutrophils # PT INR APTT D-Dimer 7368.96 H Heparin Anti-Xa Level Potassium Chloride Carbon Dioxide BUN 18 H Glucose 118 H POC Glucose Total Bilirubin Alkaline Phosphatase NT-Pro-B Natriuret Pep Albumin 2.8 L 03/01/19 03/01/19 03/02/19 13:11 21:51 11:36 RBC Hgb Hct RDW [place] % (Auto) [place] # Seg Neutrophils % Seg Neutrophils # PT INR APTT D-Dimer Heparin Anti-Xa Level < 0.10 L 0.97 H Potassium Chloride Carbon Dioxide BUN Glucose POC Glucose 149 H Total Bilirubin Alkaline Phosphatase NT-Pro-B Natriuret Pep Albumin 03/02/19 03/02/19 03/02/19 12:00 12:00 17:56 RBC Hgb 14.9 H Hct 45.9 H RDW [place] % (Auto) [place] # Seg Neutrophils % Seg Neutrophils # PT INR APTT D-Dimer Heparin Anti-Xa Level 0.11 L Potassium Chloride Carbon Dioxide BUN Glucose POC Glucose 140 H Total Bilirubin Alkaline Phosphatase NT-Pro-B Natriuret Pep Albumin 03/02/19 03/03/19 03/03/19 22:02 20:37 22:22 RBC Hgb Hct RDW [place] % (Auto) [place] # Seg Neutrophils % Seg Neutrophils # PT INR APTT D-Dimer Heparin Anti-Xa Level 0.26 L Potassium Chloride Carbon Dioxide BUN Glucose POC Glucose 124 H 117 H Total Bilirubin Alkaline Phosphatase NT-Pro-B Natriuret Pep Albumin 03/04/19 03/04/19 03/04/19 04:24 04:24 12:53 RBC Hgb 15.3 H Hct 47.8 H RDW [place] % (Auto) [place] # Seg Neutrophils % Seg Neutrophils # PT INR APTT D-Dimer Heparin Anti-Xa Level Potassium Chloride Carbon Dioxide BUN Glucose 109 H POC Glucose 122 H Total Bilirubin Alkaline Phosphatase NT-Pro-B Natriuret Pep Albumin 03/04/19 03/05/19 03/05/19 17:20 07:46 07:56 RBC Hgb Hct RDW [place] % (Auto) [place] # Seg Neutrophils % Seg Neutrophils # PT INR APTT D-Dimer Heparin Anti-Xa Level < 0.10 L Potassium Chloride Carbon Dioxide BUN Glucose POC Glucose 120 H 124 H Total Bilirubin Alkaline Phosphatase NT-Pro-B Natriuret Pep Albumin 03/05/19 03/05/19 03/06/19 11:15 20:30 06:05 RBC Hgb 14.5 H Hct 44.4 H RDW [place] % (Auto) [place] # Seg Neutrophils % Seg Neutrophils # PT INR APTT D-Dimer Heparin Anti-Xa Level < 0.10 L Potassium Chloride Carbon Dioxide BUN Glucose POC Glucose 118 H Total Bilirubin Alkaline Phosphatase NT-Pro-B Natriuret Pep Albumin 03/06/19 03/06/19 03/06/19 06:05 06:05 08:00 RBC Hgb Hct RDW [place] % (Auto) [place] # Seg Neutrophils % Seg Neutrophils # PT INR APTT D-Dimer Heparin Anti-Xa Level 1.62 H 1.52 H Potassium 2.9 L* D Chloride 97.2 L Carbon Dioxide 31 H BUN Glucose POC Glucose Total Bilirubin Alkaline Phosphatase NT-Pro-B Natriuret Pep Albumin Allied health notes reviewed: nursing
[2019-03-06] MEDS ORDERED: HEPARIN 10,000 UNITS/10 ML IV ONE (18:54)
[2019-03-07] MEDS: LOPRESSOR PO SCH ×2 (03:57→09:42)
[2019-03-07] MEDS: HEPARIN/ 0.45% NACL-25,000 UNIT/500 ML 25,000 UNIT/500 ML BAG IV SCH (06:33)
[2019-03-07 06:38] LABS: Basophils # (Auto) 0.1 K/mm3 (0.0-0.1); Basophils % (Auto) 0.7 % (0.0-1.8); Eosinophils # (Auto) 0.1 K/mm3 (0.0-0.4); Eosinophils % (Auto) 1.1 % (0.0-4.3); Hematocrit 46.5 % (30.3-42.9); Hemoglobin 15.1 gm/dl (10.1-14.3); Lymphocytes # (Auto) 1.1 K/mm3 (1.2-5.4); Lymphocytes % (Auto) 12.5 % (13.4-35.0); Mean Corpuscular HGB Conc 33 % (30-34); Mean Corpuscular Volume 95 fl (79-97); Monocytes # (Auto) 0.8 K/mm3 (0.0-0.8); Monocytes % (Auto) 9.9 % (0.0-7.3); Platelet Count 234 K/mm3 (140-440); Red Blood Count 4.92 M/mm3 (3.65-5.03); Red Cell Distribution Width 14.8 % (13.2-15.2)
[2019-03-07 06:58] LABS: BUN/Creatinine Ratio 15; Blood Urea Nitrogen 15 mg/dL (7-17); Calcium 8.9 mg/dL (8.4-10.2); Hemolysis Index 8
[2019-03-07] MEDS ORDERED: K-DUR PO SCH (09:00)
[2019-03-07] MEDS: ZITHROMAX PO SCH (09:40)
[2019-03-07] MEDS: PEPCID PO SCH (09:40)
[2019-03-07] MEDS: LASIX IV SCH ×2 (09:40→21:29)
[2019-03-07] MEDS: COZAAR PO SCH (09:41)
[2019-03-07] MEDS: ALDACTONE PO SCH (09:41)
[2019-03-07] MEDS ORDERED: CORDARONE 150 MG in D5W 97 ML IV ONE (11:00)
--- NOTE | 2019-03-07 11:42 | Progress Note ---
Assessment and Plan DC IV Amiodarone drip. Switch to PO amiodarone. Discontinue Lopressor and change to Coreg. Add oral diltiazem. - Patient Problems (1) Acute respiratory failure with hypoxemia Current Visit: Yes Status: Acute (2) Atrial flutter with rapid ventricular response Current Visit: Yes Status: Acute (3) Acute on chronic HFrEF (heart failure with reduced ejection fraction) Current Visit: Yes Status: Acute (4) Cardiomyopathy Current Visit: Yes Status: Chronic (5) KURTIS (obstructive sleep apnea) Current Visit: Yes Status: Chronic (6) Obesity hypoventilation syndrome Current Visit: Yes Status: Chronic (7) HTN (hypertension) Current Visit: Yes Status: Chronic Qualifiers: Hypertension type: essential hypertension Qualified Code(s): I10 - Essential (primary) hypertension (8) Morbid obesity Current Visit: Yes Status: Chronic Subjective Date of service: 03/07/19 Principal diagnosis: AFlutter with RVR, Acute on chronic HDrEF, CMP, KURTIS/OHS, HTN, Morbid Obesit Interval history: She is lying down supine comfortably in bed. No complaints. She is still in atrial flutter with mildly rapid ventricular rate. Objective Vital Signs Temp Pulse Pulse Resp Resp BP BP 03/07/19 09:21 03/07/19 08:06 98.3 F 110 H 18 131/101 03/07/19 03:57 109 H 151/105 03/07/19 03:45 97.5 F L 109 H 20 151/105 03/06/19 23:50 114 H 22 03/06/19 23:19 98.5 F 105 H 22 160/118 03/06/19 22:00 20 03/06/19 21:23 111 H 139/97 03/06/19 20:40 118 H 22 03/06/19 19:38 98.1 F 111 H 22 139/97 03/06/19 19:15 105 H 03/06/19 18:31 105 H 20 138/99 03/06/19 16:08 97.7 F 72 18 151/102 03/06/19 14:20 106 H 160/100 Pulse Ox 03/07/19 09:21 94 03/07/19 08:06 98 03/07/19 03:57 03/07/19 03:45 96 03/06/19 23:50 94 03/06/19 23:19 91 03/06/19 22:00 03/06/19 21:23 03/06/19 20:40 99 03/06/19 19:38 95 03/06/19 19:15 03/06/19 18:31 96 03/06/19 16:08 88 03/06/19 14:20 - Physical Examination General: No Apparent Distress HEENT: Positive: EOMI, Normocephaly, Mucus Membranes Moist Neck: Positive: neck supple, trachea midline Cardiac: Positive: Irregularly Regular, S1/S2 Lungs: Positive: clear to auscultation Neuro: Positive: Grossly Intact Abdomen: Positive: Soft, Active Bowel Sounds. Negative: Tender Skin: Negative: Rash Musculoskeletal: Normal Range of Motion Extremities: Present: edema (trace leg edema) - Labs and Meds CBC 03/07/19 Range/Units 06:05 WBC 8.5 (4.5-11.0) K/mm3 RBC 4.92 (3.65-5.03) M/mm3 Hgb 15.1 H (10.1-14.3) gm/dl Hct 46.5 H (30.3-42.9) % Plt Count 234 (140-440) K/mm3 Lymph # 1.1 L (1.2-5.4) K/mm3 [place] # 0.8 (0.0-0.8) K/mm3 Eos # 0.1 (0.0-0.4) K/mm3 Baso # 0.1 (0.0-0.1) K/mm3 Comprehensive Metabolic Panel 03/07/19 Range/Units 06:05 Sodium 141 (137-145) mmol/L Potassium 3.0 L (3.6-5.0) mmol/L Chloride 100.3 (98-107) mmol/L Carbon Dioxide 28 (22-30) mmol/L BUN 15 (7-17) mg/dL Creatinine 1.0 (0.7-1.2) mg/dL Glucose 108 H (65-100) mg/dL Calcium 8.9 (8.4-10.2) mg/dL - Imaging and Cardiology Echo: report reviewed (EF 15-20%, RV mildly diated, RA mildly dilated, mild to mod TR, RVSP 34mmHg, trivial pericardial effusion, increased RA pressure. ) - Telemetry EKG Rhythm: Atrial Flutter (with RVR) - Allied health notes Allied health notes reviewed: nursing
[2019-03-07] MEDS: SODIUM CHLORIDE FLUSH SYRINGE 10 ML IV SCH ×2 (12:02→21:29)
--- NOTE | 2019-03-07 12:05 | Progress Note ---
Assessment and Plan Assessment and plan: Acute HFrEF. Echo revealed - EF 15-20%, RV mildly diated, RA mildly dilated, mild to mod TR, RVSP 34mmHg, trivial pericardial effusion, increased RA pressure. Cont losartan, aldactone, IV lasix as tolerated. Cardiomyopathy. As above. We are unable to pursue an ischemic evaluation at this time to r/o ischemic CMP due to pt's weight. Cardiac defibrillator (LifeVest) recommended in setting of severe cardiomyopathy. Pt was agreeable and LifeVest ordered, patient has with her. Hypokalemia. Replete potassium. Follow-up BMP in a.m. Acute hypoxic respiratory failure. Etiology multifactorial secondary to acute systolic heart failure, COPD, KURTIS and OHS. Continue BiPAP at night and as clinically indicated. Atrial flutter with rapid ventricular response. Continue amiodarone and increased lopressor dosage per cardiology. Started on Eliquis. Hypertension. Continue antihypertensive medications. Morbid obesity. History Interval history: Less shortness of breath No chest pain currently Hospitalist Physical - Physical exam Narrative exam: Gen: Not in acute distress, lying in bed, morbidly obese HEENT: Normocephalic, atraumatic Neck: supple, no JVD Heart: S1 and S2 reg, no murmurs, rubs or gallop Lungs: Clear, no crackles or wheeze Abd: soft, non tender, non distended, normal BS Ext: Bilateral lower ext edema, no clubbing, no cyanosis Neuro:awake,alert, Oriented X 3. No focal signs Psych: Normal mood - Constitutional Vitals: Temp Pulse Resp BP Pulse Ox 98.3 F 110 H 18 131/101 94 03/07/19 08:06 03/07/19 08:06 03/07/19 08:06 03/07/19 08:06 03/07/19 09:21 General appearance: Present: no acute distress, obese Results - Labs CBC & Chem 7: 03/07/19 06:05 03/07/19 16:00 Labs: Laboratory Last Values WBC 8.5 K/mm3 (4.5-11.0) 03/07/19 06:05 RBC 4.92 M/mm3 (3.65-5.03) 03/07/19 06:05 Hgb 15.1 gm/dl (10.1-14.3) H 03/07/19 06:05 Hct 46.5 % (30.3-42.9) H 03/07/19 06:05 MCV 95 fl (79-97) 03/07/19 06:05 MCH 31 pg (28-32) 03/07/19 06:05 MCHC 33 % (30-34) 03/07/19 06:05 RDW 14.8 % (13.2-15.2) 03/07/19 06:05 Plt Count 234 K/mm3 (140-440) 03/07/19 06:05 Lymph % (Auto) 12.5 % (13.4-35.0) L 03/07/19 06:05 [place] % (Auto) 9.9 % (0.0-7.3) H 03/07/19 06:05 Eos % (Auto) 1.1 % (0.0-4.3) 03/07/19 06:05 Baso % (Auto) 0.7 % (0.0-1.8) 03/07/19 06:05 Lymph # 1.1 K/mm3 (1.2-5.4) L 03/07/19 06:05 [place] # 0.8 K/mm3 (0.0-0.8) 03/07/19 06:05 Eos # 0.1 K/mm3 (0.0-0.4) 03/07/19 06:05 Baso # 0.1 K/mm3 (0.0-0.1) 03/07/19 06:05 Seg Neutrophils % 75.8 % (40.0-70.0) H 03/07/19 06:05 Seg Neutrophils # 6.4 K/mm3 (1.8-7.7) 03/07/19 06:05 PT 16.9 Sec. (12.2-14.9) H 02/28/19 13:12 INR 1.41 (0.87-1.13) H 02/28/19 13:12 APTT 24.0 Sec. (24.2-36.6) L 02/28/19 13:12 7368.96 ng/mlDDU (0-234) H 02/28/19 13:15 Heparin Anti-Xa Level 0.94 U.I./ml (0.3-0.7) H 03/07/19 00:30 POC ABG pH 7.368 (7.35-7.45) 03/01/19 09:46 POC ABG pCO2 43.1 (35-45) 03/01/19 09:46 POC ABG pO2 95 (80-105) 03/01/19 09:46 POC ABG HCO3 24.8 (22-26 mml/L) 03/01/19 09:46 POC ABG Total CO2 26 (23-27mmol/L) 03/01/19 09:46 POC ABG O2 Sat 97 03/01/19 09:46 POC ABG Base Excess 0 ((-2) - (+3)mmol/L) 03/01/19 09:46 50 % 03/01/19 09:46 Sodium 141 mmol/L (137-145) 03/07/19 06:05 Potassium 3.0 mmol/L (3.6-5.0) L 03/07/19 06:05 Chloride 100.3 mmol/L (98-107) 03/07/19 06:05 Carbon Dioxide 28 mmol/L (22-30) 03/07/19 06:05 16 mmol/L 03/07/19 06:05 BUN 15 mg/dL (7-17) 03/07/19 06:05 1.0 mg/dL (0.7-1.2) 03/07/19 06:05 Estimated GFR > 60 ml/min 03/07/19 06:05 15 % 03/07/19 06:05 Glucose 108 mg/dL (65-100) H 03/07/19 06:05 POC Glucose 131 (70-105) H 03/06/19 16:46 Calcium 8.9 mg/dL (8.4-10.2) 03/07/19 06:05 Magnesium 1.80 mg/dL (1.7-2.3) 02/28/19 21:38 1.00 mg/dL (0.1-1.2) 03/01/19 05:26 AST 23 units/L (5-40) 03/01/19 05:26 ALT 21 units/L (7-56) 03/01/19 05:26 128 units/L (35-129) 03/01/19 05:26 < 0.010 ng/mL (0.00-0.029) 02/28/19 21:38 NT-Pro-B Natriuret Pep 3618 pg/mL (0-900) H 02/28/19 13:12 6.4 g/dL (6.3-8.2) 03/01/19 05:26 2.8 g/dL (3.9-5) L 03/01/19 05:26 0.8 % 03/01/19 05:26 TSH 2.830 mlU/mL (0.270-4.200) 02/28/19 21:38 TSH 2.870 mlU/mL (0.270-4.200) 02/28/19 21:38 Free T4 1.24 ng/dL (0.76-1.46) 02/28/19 21: Free T4 1.26 ng/dL (0.76-1.46) 02/28/19 21:38 Yellow (Yellow) 02/28/19 18:00 Slightly-cloudy (Clear) 02/28/19 18:00 5.0 (5.0-7.0) 02/28/19 18:00 Ur Specific [place] 1.008 (1.003-1.030) 02/28/19 18:00 <15 mg/dl mg/dL (Negative) 02/28/19 18:00 Neg mg/dL (Negative) 02/28/19 18:00 Neg mg/dL (Negative) 02/28/19 18:00 Sm (Negative) 02/28/19 18:00 Neg (Negative) 02/28/19 18:00 Neg (Negative) 02/28/19 18:00 < 2.0 mg/dL (<2.0) 02/28/19 18:00 Ur Leukocyte Esterase Neg (Negative) 02/28/19 18:00 < 1.0 /HPF (0.0-6.0) 02/28/19 18:00 1.0 /HPF (0.0-6.0) 02/28/19 18:00 U Epithel Cells (Auto) 1.0 /HPF (0-13.0) 02/28/19 18:00 1+ /HPF (Negative) 02/28/19 18:00 Hyaline Casts 1 /LPF 02/28/19 18:00 Few /HPF 02/28/19 18:00 Active Medications - Current Medications Current Medications: Generic Name Dose Route Start Last Admin Trade Name Freq PRN Reason Stop Dose Admin Acetaminophen 650 mg 02/28/19 17:01 03/03/19 20:37 Tylenol PO 650 mg Q4H PRN Administration Pain MILD(1-3)/Fever >100.5/TA[place]OR Amiodarone HCl 400 mg 03/07/19 14:00 Cordarone PO TID SULAIMAN Apixaban 5 mg 03/07/19 12:00 Eliquis PO Q12HR [facility] Protocol Azithromycin 500 mg 03/04/19 18:00 03/07/19 09:40 Zithromax PO 500 mg QDAY SULAIMAN Administration Carvedilol 25 mg 03/07/19 11:00 Coreg PO BID SULAIMAN Diltiazem HCl 60 mg 03/07/19 12:00 Cardizem PO Q6HR SULAIMAN Famotidine 20 mg 03/02/19 15:00 03/07/19 09:40 Pepcid PO 20 mg QDAY SULAIMAN Administration Furosemide 40 mg 02/28/19 16:00 03/07/19 09:40 Lasix IV 40 mg BID SULAIMAN Administration Losartan Potassium 12.5 mg 03/02/19 10:00 03/07/19 09:41 Cozaar PO 12.5 mg QDAY SULAIMAN Administration Morphine Sulfate 2 mg 03/05/19 21:03 03/06/19 10:29 Morphine IV 2 mg Q4H PRN Administration Pain, Moderate (4-6) Ondansetron HCl 4 mg 02/28/19 17:01 Zofran IV Q8H PRN Nausea And Vomiting Potassium Chloride 40 meq 03/07/19 11:00 K-Dur PO 03/07/19 13:01 Q2H SULAIMAN Sodium Chloride 10 ml 02/28/19 22:00 03/06/19 21:24 Sodium Chloride Flush Syringe 10 Ml IV 10 ml BID SULAIMAN Administration Sodium Chloride 10 ml 02/28/19 17:01 Sodium Chloride Flush Syringe 10 Ml IV PRN PRN LINE FLUSH Spironolactone 25 mg 03/06/19 13:57 03/07/19 09:41 Aldactone PO 25 mg QDAY SULAIMAN Administration Nutrition/Malnutrition Assess - Dietary Evaluation Nutrition/Malnutrition Findings: Nutrition Notes Start: 03/06/19 17:09 Freq: Status: Active Protocol: Document 03/06/19 17:09 RM (Rec: 03/06/19 17:17 RM [id number]) Nutrition Notes Initial or Follow up Assessment Current Diagnosis COPD,Hypertension,Heart Failure Other Pertinent Diagnosis Lymphedema Current Diet Cardiac/Consistent CHO Labs/Tests Reviewed Pertinent Medications Bruceix Height 5 ft 7 in Weight 255.7 kg [place] Body Weight (kg) 61.36 BMI 88.2 Subjective/Other Information Pt screened for very high BMI. Pt appeared to have high BMI. Stated that her appetite is " so so" d/t stomach pain and that she ate 25% of her lunch. Admitted to diarrhea. Declined regular ONS d/t it causing diarrhea in the past. Unsure of UBW. Burn Absent Trauma Absent #1 Nutrition Diagnosis Inadequate oral intake Etiology stomach pain As Evidenced by Signs and Symptoms pt statement that she ate 25% of her luch Is patient on ventilator? No Is Patient Ambulatory and/or Out of Bed No REE-([facility]-confined to bed) 3817.860 Kcal/Kg value to use for calculation 11 Approximate Energy Requirements Using 2813 kcal/Kg Calculation Used for Recommendations Kcal/kg Additional Notes Protein Needs: 49-61g (0.8-1g/ kg adjBW) Fluid Needs: 1 ml/kcal Nutrition Intervention Change Diet Order: Cardiac, Consistent CHO, GI soft diet Add Supplement/Snack (indicate name/kcal Ensure Clear Apple 1 daily /protein ) Provides kCal: 240 Provides Protein (gm) 8 Goal #1 Meet at least 75% of calorie and protein needs via PO and ONS intakes Anticipated Discharge Needs: Unable to determine at this time Follow-Up By: 03/09/19 Additional Comments Follow for PO and ONS intakes
[2019-03-07] MEDS: COREG PO SCH ×2 (12:08→21:28)
[2019-03-07] MEDS: CARDIZEM PO SCH ×3 (12:08→23:18)
[2019-03-07] MEDS: K-DUR PO SCH ×2 (12:08→17:46)
[2019-03-07] MEDS: MORPHINE IV PRN (12:12)
[2019-03-07] MEDS: ELIQUIS PO SCH ×2 (12:16→21:29)
[2019-03-07] MEDS: CORDARONE PO SCH ×2 (13:15→19:58)
[2019-03-07 16:32] LABS: BUN/Creatinine Ratio 15; Blood Urea Nitrogen 17 mg/dL (7-17); Calcium 8.3 mg/dL (8.4-10.2); Hemolysis Index 1
--- NOTE | 2019-03-07 16:51 | Progress Note ---
Assessment and Plan Patient morbidly Obese. Resting in Bed. On 2 litres O2. Patient using BIPAP at night. O2 saturation 93% . No acute respiratory distress at rest. Patient has symptoms of sleep apnea. Her sleep study 10 years. Recommend sleep study as out patient. - Patient Problems (1) Acute respiratory failure with hypoxemia Current Visit: Yes Status: Acute Plan to address problem: O2 2 litres via nasal canula. BIPAP during night time. Albuterol/atrovent aerosol treatments q 6 hours. Patient is on I/V Heparin. Continue famotidine. Continue Zithromax. (2) Atrial flutter with rapid ventricular response Current Visit: Yes Status: Acute Plan to address problem: Management as per cardiology. Patient is on Amiodorone. Patient is on I/V Heparin. (3) CHF (congestive heart failure) Current Visit: Yes Status: Acute Qualifiers: Heart failure chronicity: acute on chronic Plan to address problem: Management as per cardiology. (4) HTN (hypertension) Current Visit: Yes Status: Chronic Qualifiers: Hypertension type: essential hypertension Qualified Code(s): I10 - Essential (primary) hypertension Plan to address problem: Management as per primary care. (5) History of asthma Current Visit: Yes Status: Chronic Plan to address problem: Albuterol/atrovent aerosol treatments q 6 hours. (6) Morbid obesity Current Visit: Yes Status: Chronic Plan to address problem: Recommend to loose weight. Diet and exercise. (7) Sleep apnea Current Visit: Yes Status: Chronic Qualifiers: Sleep apnea type: unspecified type Qualified Code(s): G47.30 - Sleep apnea, unspecified Plan to address problem: Patient is on BIPAP here. Recommend sleep study as out patient. Subjective Date of service: 03/07/19 Principal diagnosis: AFlutter with RVR, Acute on chronic HDrEF, CMP, KURTIS/OHS, HTN, Morbid Obesit Interval history: Patient morbidly Obese. Resting in Bed. On 2 litres O2. Patient using BIPAP at night. O2 saturation 93% . No acute respiratory distress at rest. Patient has symptoms of sleep apnea. Her sleep study 10 years. Recommend sleep study as out patient. Objective Vital Signs - 12hr 03/07/19 03/07/19 03/07/19 08:06 09:21 11:38 Temperature 98.3 F 97.7 F Pulse Rate 110 H 114 H Respiratory 18 16 Rate Blood Pressure 131/101 153/108 O2 Sat by Pulse 98 94 93 Oximetry Constitutional: no acute distress, alert, other (Morbidly Obese.) Eyes: non-icteric ENT: oropharynx moist, other (Mallampati 4) Neck: supple, no lymphadenopathy, no JVD, other (large neck circumference) Effort: mildly labored Ascultation: Bilateral: clear, diminished breath sounds Percussion: Bilateral: not dull Cardiovascular: irregular rhythm, other (No R/M) Gastrointestinal: normoactive bowel sounds, soft, non-tender, non-distended Integumentary: rash (stasis dermatitis to lower extremities) Extremities: no cyanosis, pulses normal, no ischemia or petechiae, edema (1+) Neurologic: normal mental status, non-focal exam, pupils equal and round, motor strength normal and Psychiatric: mood appropriate, affect normal CBC and BMP: 03/07/19 06:05 03/07/19 16:00 ABG, PT/INR, D-dimer: ABG POC ABG pH 7.368 (7.35-7.45) 03/01/19 09:46 POC ABG pCO2 43.1 (35-45) 03/01/19 09:46 POC ABG pO2 95 (80-105) 03/01/19 09:46 POC ABG HCO3 24.8 (22-26 mml/L) 03/01/19 09:46 POC ABG Total CO2 26 (23-27mmol/L) 03/01/19 09:46 POC ABG O2 Sat 97 03/01/19 09:46 PT/INR, D-dimer PT 16.9 Sec. (12.2-14.9) H 02/28/19 13:12 INR 1.41 (0.87-1.13) H 02/28/19 13:12 7368.96 ng/mlDDU (0-234) H 02/28/19 13:15 Abnormal lab findings: Abnormal Labs 02/28/19 02/28/19 02/28/19 13:12 13:12 13:12 RBC 5.36 H Hgb 16.3 H Hct 51.3 H RDW 15.6 H Lymph % (Auto) [place] % (Auto) Lymph # [place] # Seg Neutrophils % 78.2 H Seg Neutrophils # 8.4 H PT 16.9 H INR 1.41 H APTT 24.0 L D-Dimer Heparin Anti-Xa Level Potassium Chloride Carbon Dioxide 17 L BUN 18 H Glucose 195 H POC Glucose Calcium Magnesium Total Bilirubin 1.60 H Alkaline Phosphatase 167 H NT-Pro-B Natriuret Pep 3618 H Albumin 3.7 L 02/28/19 03/01/19 03/01/19 13:15 05:26 05:26 RBC Hgb 14.5 H Hct 44.7 H D RDW Lymph % (Auto) [place] % (Auto) 9.0 H Lymph # [place] # 0.9 H Seg Neutrophils % 72.4 H Seg Neutrophils # PT INR APTT D-Dimer 7368.96 H Heparin Anti-Xa Level Potassium Chloride Carbon Dioxide BUN 18 H Glucose 118 H POC Glucose Calcium Magnesium Total Bilirubin Alkaline Phosphatase NT-Pro-B Natriuret Pep Albumin 2.8 L 03/01/19 03/01/19 03/02/19 13:11 21:51 11:36 RBC Hgb Hct RDW Lymph % (Auto) [place] % (Auto) Lymph # [place] # Seg Neutrophils % Seg Neutrophils # PT INR APTT D-Dimer Heparin Anti-Xa Level < 0.10 L 0.97 H Potassium Chloride Carbon Dioxide BUN Glucose POC Glucose 149 H Calcium Magnesium Total Bilirubin Alkaline Phosphatase NT-Pro-B Natriuret Pep Albumin 03/02/19 03/02/19 03/02/19 12:00 12:00 17:56 RBC Hgb 14.9 H Hct 45.9 H RDW Lymph % (Auto) [place] % (Auto) Lymph # [place] # Seg Neutrophils % Seg Neutrophils # PT INR APTT D-Dimer Heparin Anti-Xa Level 0.11 L Potassium Chloride Carbon Dioxide BUN Glucose POC Glucose 140 H Calcium Magnesium Total Bilirubin Alkaline Phosphatase NT-Pro-B Natriuret Pep Albumin 03/02/19 03/03/19 03/03/19 22:02 20:37 22:22 RBC Hgb Hct RDW Lymph % (Auto) [place] % (Auto) Lymph # [place] # Seg Neutrophils % Seg Neutrophils # PT INR APTT D-Dimer Heparin Anti-Xa Level 0.26 L Potassium Chloride Carbon Dioxide BUN Glucose POC Glucose 124 H 117 H Calcium Magnesium Total Bilirubin Alkaline Phosphatase NT-Pro-B Natriuret Pep Albumin 03/04/19 03/04/19 03/04/19 04:24 04:24 12:53 RBC Hgb 15.3 H Hct 47.8 H RDW Lymph % (Auto) [place] % (Auto) Lymph # [place] # Seg Neutrophils % Seg Neutrophils # PT INR APTT D-Dimer Heparin Anti-Xa Level Potassium Chloride Carbon Dioxide BUN Glucose 109 H POC Glucose 122 H Calcium Magnesium Total Bilirubin Alkaline Phosphatase NT-Pro-B Natriuret Pep Albumin 03/04/19 03/05/19 03/05/19 17:20 07:46 07:56 RBC Hgb Hct RDW Lymph % (Auto) [place] % (Auto) Lymph # [place] # Seg Neutrophils % Seg Neutrophils # PT INR APTT D-Dimer Heparin Anti-Xa Level < 0.10 L Potassium Chloride Carbon Dioxide BUN Glucose POC Glucose 120 H 124 H Calcium Magnesium Total Bilirubin Alkaline Phosphatase NT-Pro-B Natriuret Pep Albumin 03/05/19 03/05/19 03/06/19 11:15 20:30 06:05 RBC Hgb 14.5 H Hct 44.4 H RDW Lymph % (Auto) [place] % (Auto) Lymph # [place] # Seg Neutrophils % Seg Neutrophils # PT INR APTT D-Dimer Heparin Anti-Xa Level < 0.10 L Potassium Chloride Carbon Dioxide BUN Glucose POC Glucose 118 H Calcium Magnesium Total Bilirubin Alkaline Phosphatase NT-Pro-B Natriuret Pep Albumin 03/06/19 03/06/19 03/06/19 06:05 06:05 08:00 RBC Hgb Hct RDW Lymph % (Auto) [place] % (Auto) Lymph # [place] # Seg Neutrophils % Seg Neutrophils # PT INR APTT D-Dimer Heparin Anti-Xa Level 1.62 H 1.52 H Potassium 2.9 L* D Chloride 97.2 L Carbon Dioxide 31 H BUN Glucose POC Glucose Calcium Magnesium Total Bilirubin Alkaline Phosphatase NT-Pro-B Natriuret Pep Albumin 03/06/19 03/06/19 03/07/19 16:46 17:15 00:30 RBC Hgb Hct RDW Lymph % (Auto) [place] % (Auto) Lymph # [place] # Seg Neutrophils % Seg Neutrophils # PT INR APTT D-Dimer Heparin Anti-Xa Level < 0.10 L 0.94 H Potassium Chloride Carbon Dioxide BUN Glucose POC Glucose 131 H Calcium Magnesium Total Bilirubin Alkaline Phosphatase NT-Pro-B Natriuret Pep Albumin 03/07/19 03/07/19 03/07/19 06:05 06:05 16:00 RBC Hgb 15.1 H Hct 46.5 H RDW Lymph % (Auto) 12.5 L [place] % (Auto) 9.9 H Lymph # 1.1 L [place] # Seg Neutrophils % 75.8 H Seg Neutrophils # PT INR APTT D-Dimer Heparin Anti-Xa Level Potassium 3.0 L 3.3 L Chloride 97.6 L Carbon Dioxide 32 H BUN Glucose 108 H 152 H POC Glucose Calcium 8.3 L Magnesium 1.60 L Total Bilirubin Alkaline Phosphatase NT-Pro-B Natriuret Pep Albumin Allied health notes reviewed: nursing
[2019-03-07] MEDS ORDERED: MAGNESIUM SULFATE 3 GM in NACL 0.9% 100 ML IV ONE (18:40)
[2019-03-08] MEDS: CARDIZEM PO SCH ×3 (05:18→17:48)
[2019-03-08] MEDS: MORPHINE IV PRN ×2 (05:18→14:58)
[2019-03-08 05:36] LABS: Hematocrit 42.9 % (30.3-42.9)
[2019-03-08 05:54] LABS: BUN/Creatinine Ratio 17; Blood Urea Nitrogen 17 mg/dL (7-17); Calcium 8.8 mg/dL (8.4-10.2); Hemolysis Index 7
[2019-03-08] MEDS: CORDARONE PO SCH ×3 (08:38→22:16)
[2019-03-08] MEDS: K-DUR PO SCH ×2 (08:39→15:04)
--- NOTE | 2019-03-08 09:15 | Progress Note ---
Assessment and Plan Assessment and plan: Acute HFrEF. Echo revealed - EF 15-20%, RV mildly diated, RA mildly dilated, mild to mod TR, RVSP 34mmHg, trivial pericardial effusion, increased RA pressure. Cont losartan, aldactone, IV lasix as tolerated. Cardiomyopathy. As above. We are unable to pursue an ischemic evaluation at this time to r/o ischemic CMP due to pt's weight. Cardiac defibrillator (LifeVest) recommended in setting of severe cardiomyopathy. Pt was agreeable and LifeVest ordered, patient has with her. Hypokalemia. Replete potassium. Follow-up BMP in a.m. Acute hypoxic respiratory failure. Etiology multifactorial secondary to acute systolic heart failure, COPD, KURTIS and OHS. Continue BiPAP at night and as clinically indicated. Atrial flutter with rapid ventricular response. Continue amiodarone and increased lopressor dosage per cardiology. Started on Eliquis. Hypertension. Continue antihypertensive medications. Morbid obesity. Awaiting inpatient rehab placement History Interval history: Less shortness of breath No chest pain currently Hospitalist Physical - Physical exam Narrative exam: Gen: Not in acute distress, lying in bed, morbidly obese HEENT: Normocephalic, atraumatic Neck: supple, no JVD Heart: S1 and S2 reg, no murmurs, rubs or gallop Lungs: Clear, no crackles or wheeze Abd: soft, non tender, non distended, normal BS Ext: Bilateral lower ext edema, no clubbing, no cyanosis Neuro:awake,alert, Oriented X 3. No focal signs Psych: Normal mood - Constitutional Vitals: Temp Pulse Resp BP Pulse Ox 97.8 F 123 H 18 154/84 93 03/08/19 08:03 03/08/19 08:03 03/08/19 08:03 03/08/19 08:03 03/08/19 08:03 General appearance: Present: no acute distress, obese Results - Labs CBC & Chem 7: 03/08/19 05:15 03/08/19 05:15 Labs: Laboratory Last Values WBC 8.5 K/mm3 (4.5-11.0) 03/07/19 06:05 RBC 4.92 M/mm3 (3.65-5.03) 03/07/19 06:05 Hgb 14.0 gm/dl (10.1-14.3) 03/08/19 05:15 Hct 42.9 % (30.3-42.9) 03/08/19 05:15 MCV 95 fl (79-97) 03/07/19 06:05 MCH 31 pg (28-32) 03/07/19 06:05 MCHC 33 % (30-34) 03/07/19 06:05 RDW 14.8 % (13.2-15.2) 03/07/19 06:05 Plt Count 204 K/mm3 (140-440) 03/08/19 05:15 Lymph % (Auto) 12.5 % (13.4-35.0) L 03/07/19 06:05 [place] % (Auto) 9.9 % (0.0-7.3) H 03/07/19 06:05 Eos % (Auto) 1.1 % (0.0-4.3) 03/07/19 06:05 Baso % (Auto) 0.7 % (0.0-1.8) 03/07/19 06:05 Lymph # 1.1 K/mm3 (1.2-5.4) L 03/07/19 06:05 [place] # 0.8 K/mm3 (0.0-0.8) 03/07/19 06:05 Eos # 0.1 K/mm3 (0.0-0.4) 03/07/19 06:05 Baso # 0.1 K/mm3 (0.0-0.1) 03/07/19 06:05 Seg Neutrophils % 75.8 % (40.0-70.0) H 03/07/19 06:05 Seg Neutrophils # 6.4 K/mm3 (1.8-7.7) 03/07/19 06:05 PT 16.9 Sec. (12.2-14.9) H 02/28/19 13:12 INR 1.41 (0.87-1.13) H 02/28/19 13:12 APTT 24.0 Sec. (24.2-36.6) L 02/28/19 13:12 7368.96 ng/mlDDU (0-234) H 02/28/19 13:15 Heparin Anti-Xa Level 0.94 U.I./ml (0.3-0.7) H 03/07/19 00:30 POC ABG pH 7.368 (7.35-7.45) 03/01/19 09:46 POC ABG pCO2 43.1 (35-45) 03/01/19 09:46 POC ABG pO2 95 (80-105) 03/01/19 09:46 POC ABG HCO3 24.8 (22-26 mml/L) 03/01/19 09:46 POC ABG Total CO2 26 (23-27mmol/L) 03/01/19 09:46 POC ABG O2 Sat 97 03/01/19 09:46 POC ABG Base Excess 0 ((-2) - (+3)mmol/L) 03/01/19 09:46 50 % 03/01/19 09:46 Sodium 141 mmol/L (137-145) 03/08/19 05:15 Potassium 3.4 mmol/L (3.6-5.0) L 03/08/19 05:15 Chloride 99.9 mmol/L (98-107) 03/08/19 05:15 Carbon Dioxide 32 mmol/L (22-30) H 03/08/19 05:15 13 mmol/L 03/08/19 05:15 BUN 17 mg/dL (7-17) 03/08/19 05:15 1.0 mg/dL (0.7-1.2) 03/08/19 05:15 Estimated GFR > 60 ml/min 03/08/19 05:15 17 % 03/08/19 05:15 Glucose 92 mg/dL (65-100) 03/08/19 05:15 POC Glucose 131 (70-105) H 03/06/19 16:46 Calcium 8.8 mg/dL (8.4-10.2) 03/08/19 05:15 Magnesium 1.90 mg/dL (1.7-2.3) 03/08/19 05:15 1.00 mg/dL (0.1-1.2) 03/01/19 05:26 AST 23 units/L (5-40) 03/01/19 05:26 ALT 21 units/L (7-56) 03/01/19 05:26 128 units/L (35-129) 03/01/19 05:26 < 0.010 ng/mL (0.00-0.029) 02/28/19 21:38 NT-Pro-B Natriuret Pep 3618 pg/mL (0-900) H 02/28/19 13:12 6.4 g/dL (6.3-8.2) 03/01/19 05:26 2.8 g/dL (3.9-5) L 03/01/19 05:26 0.8 % 03/01/19 05:26 TSH 2.830 mlU/mL (0.270-4.200) 02/28/19 21:38 TSH 2.870 mlU/mL (0.270-4.200) 02/28/19 21:38 Free T4 1.24 ng/dL (0.76-1.46) 02/28/19 21: Free T4 1.26 ng/dL (0.76-1.46) 02/28/19 21:38 Yellow (Yellow) 02/28/19 18:00 Slightly-cloudy (Clear) 02/28/19 18:00 5.0 (5.0-7.0) 02/28/19 18:00 Ur Specific Loa 1.008 (1.003-1.030) 02/28/19 18:00 <15 mg/dl mg/dL (Negative) 02/28/19 18:00 Neg mg/dL (Negative) 02/28/19 18:00 Neg mg/dL (Negative) 02/28/19 18:00 Sm (Negative) 02/28/19 18:00 Neg (Negative) 02/28/19 18:00 Neg (Negative) 02/28/19 18:00 < 2.0 mg/dL (<2.0) 02/28/19 18:00 Ur Leukocyte Esterase Neg (Negative) 02/28/19 18:00 < 1.0 /HPF (0.0-6.0) 02/28/19 18:00 1.0 /HPF (0.0-6.0) 02/28/19 18:00 U Epithel Cells (Auto) 1.0 /HPF (0-13.0) 02/28/19 18:00 1+ /HPF (Negative) 02/28/19 18:00 Hyaline Casts 1 /LPF 02/28/19 18:00 Few /HPF 02/28/19 18:00 Active Medications - Current Medications Current Medications: Generic Name Dose Route Start Last Admin Trade Name Freq PRN Reason Stop Dose Admin Acetaminophen 650 mg 02/28/19 17:01 03/03/19 20:37 Tylenol PO 650 mg Q4H PRN Administration Pain MILD(1-3)/Fever >100.5/TAYLOR Amiodarone HCl 400 mg 03/07/19 14:00 03/08/19 08:38 Cordarone PO 400 mg TID SULAIMAN Administration Apixaban 5 mg 03/07/19 13:00 03/07/19 21:29 Eliquis PO 5 mg Q12HR SULAIMAN Administration Protocol Azithromycin 500 mg 03/04/19 18:00 03/07/19 09:40 Zithromax PO 500 mg QDAY SULAIMAN Administration Carvedilol 25 mg 03/07/19 11:00 03/07/19 21:28 Coreg PO 25 mg BID SULAIMAN Administration Diltiazem HCl 60 mg 03/07/19 12:00 03/08/19 05:18 Cardizem PO 60 mg Q6HR SULAIMAN Administration Famotidine 20 mg 03/02/19 15:00 03/07/19 09:40 Pepcid PO 20 mg QDAY SULAIMAN Administration Furosemide 40 mg 02/28/19 16:00 03/07/19 21:29 Lasix IV 40 mg BID SULAIMAN Administration Amiodarone HCl 150 mg/ 100 mls @ 600 mls/hr 03/08/19 09:30 Dextrose IV 03/08/19 09:39 ONCE ONE Protocol Losartan Potassium 12.5 mg 03/02/19 10:00 03/07/19 09:41 Cozaar PO 12.5 mg QDAY SULAIMAN Administration Morphine Sulfate 2 mg 03/05/19 21:03 03/08/19 05:18 Morphine IV 2 mg Q4H PRN Administration Pain, Moderate (4-6) Ondansetron HCl 4 mg 02/28/19 17:01 Zofran IV Q8H PRN Nausea And Vomiting Potassium Chloride 40 meq 03/08/19 09:00 03/08/19 08:39 K-Dur PO 03/08/19 15:01 40 meq Q6H SULAIMAN Administration Sodium Chloride 10 ml 02/28/19 22:00 03/07/19 21:29 Sodium Chloride Flush Syringe 10 Ml IV 10 ml BID SULAIMAN Administration Sodium Chloride 10 ml 02/28/19 17:01 Sodium Chloride Flush Syringe 10 Ml IV PRN PRN LINE FLUSH Spironolactone 25 mg 03/06/19 13:57 03/07/19 09:41 Aldactone PO 25 mg QDAY SULAIMAN Administration Nutrition/Malnutrition Assess - Dietary Evaluation Nutrition/Malnutrition Findings: Nutrition Notes Start: 03/06/19 17:09 Freq: Status: Active Protocol: Document 03/06/19 17:09 RM (Rec: 03/06/19 17:17 RM [id number]) Nutrition Notes Initial or Follow up Assessment Current Diagnosis COPD,Hypertension,Heart Failure Other Pertinent Diagnosis Lymphedema Current Diet Cardiac/Consistent CHO Labs/Tests Reviewed Pertinent Medications Lasix Height 5 ft 7 in Weight 255.7 kg [place]ph[place] Body Weight (kg) 61.36 BMI 88.2 Subjective/Other Information Pt screened for very high BMI. Pt appeared to have high BMI. Stated that her appetite is " so so" d/t stomach pain and that she ate 25% of her lunch. Admitted to diarrhea. Declined regular ONS d/t it causing diarrhea in the past. Unsure of UBW. Burn Absent Trauma Absent #1 Nutrition Diagnosis Inadequate oral intake Etiology stomach pain As Evidenced by Signs and Symptoms pt statement that she ate 25% of her luch Is patient on ventilator? No Is Patient Ambulatory and/or Out of Bed No REE-([facility]-confined to bed) 3817.860 Kcal/Kg value to use for calculation 11 Approximate Energy Requirements Using 2813 kcal/Kg Calculation Used for Recommendations Kcal/kg Additional Notes Protein Needs: 49-61g (0.8-1g/ kg adjBW) Fluid Needs: 1 ml/kcal Nutrition Intervention Change Diet Order: Cardiac, Consistent CHO, GI soft diet Add Supplement/Snack (indicate name/kcal Ensure Clear Apple 1 daily /protein ) Provides kCal: 240 Provides Protein (gm) 8 Goal #1 Meet at least 75% of calorie and protein needs via PO and ONS intakes Anticipated Discharge Needs: Unable to determine at this time Follow-Up By: 03/09/19 Additional Comments Follow for PO and ONS intakes
[2019-03-08] MEDS ORDERED: CORDARONE 150 MG in D5W 97 ML IV ONE (09:30)
[2019-03-08] MEDS: ZITHROMAX PO SCH (10:04)
[2019-03-08] MEDS: PEPCID PO SCH (10:04)
[2019-03-08] MEDS: ELIQUIS PO SCH ×2 (10:04→22:09)
[2019-03-08] MEDS: COZAAR PO SCH (10:05)
[2019-03-08] MEDS: ALDACTONE PO SCH (10:05)
[2019-03-08] MEDS: COREG PO SCH ×2 (10:05→22:17)
[2019-03-08] MEDS: SODIUM CHLORIDE FLUSH SYRINGE 10 ML IV SCH ×2 (10:06→22:12)
[2019-03-08] MEDS: LASIX IV SCH ×2 (10:06→22:09)
--- NOTE | 2019-03-08 13:03 | Progress Note ---
Assessment and Plan Once her ventricular rate is adequately controlled, amiodarone will be reduced to 200 mg twice a day and she will be ready for discharge planning at that time. - Patient Problems (1) Acute respiratory failure with hypoxemia Current Visit: Yes Status: Acute (2) Atrial flutter with rapid ventricular response Current Visit: Yes Status: Acute (3) Acute on chronic HFrEF (heart failure with reduced ejection fraction) Current Visit: Yes Status: Acute (4) Cardiomyopathy Current Visit: Yes Status: Chronic (5) KURTIS (obstructive sleep apnea) Current Visit: Yes Status: Chronic (6) Obesity hypoventilation syndrome Current Visit: Yes Status: Chronic (7) HTN (hypertension) Current Visit: Yes Status: Chronic Qualifiers: Hypertension type: essential hypertension Qualified Code(s): I10 - Dheerajenti al (primary) hypertension (8) Morbid obesity Current Visit: Yes Status: Chronic Subjective Date of service: 03/08/19 Principal diagnosis: AFlutter with RVR, Acute on chronic HDrEF, CMP, KURTIS/OHS, HTN, Morbid Obesit Interval history: No new complaint. She was still in rapid atrial flutter this am. She has received intravenous bolus of amiodarone and will continue PO loading. Objective Vital Signs Temp Pulse Pulse Resp Resp BP Pulse Ox 03/08/19 12:27 82 123/73 03/08/19 12:15 98.0 F 66 20 128/73 92 03/08/19 10:05 76 112/83 03/08/19 10:00 20 03/08/19 09:59 94 03/08/19 08:03 97.8 F 123 H 18 154/84 93 03/08/19 05:48 20 03/08/19 05:18 122 H 20 117/81 03/08/19 04:44 97.5 F L 122 H 19 117/81 94 03/08/19 01:30 83 23 94 03/07/19 23:51 97.7 F 75 22 109/67 92 03/07/19 23:18 88 110/68 03/07/19 21:41 70 20 96 03/07/19 21:36 20 03/07/19 21:28 78 118/78 03/07/19 19:39 98.4 F 59 L 20 110/72 93 03/07/19 19:21 97 H 03/07/19 18:14 97.7 F 82 18 110/85 92 - Physical Examination General: No Apparent Distress HEENT: Positive: EOMI, Normocephaly, Mucus Membranes Moist Neck: Positive: neck supple, trachea midline Cardiac: Positive: Irregularly Regular Lungs: Positive: clear to auscultation Neuro: Positive: Grossly Intact Abdomen: Positive: Soft, Active Bowel Sounds. Negative: Tender Skin: Negative: Rash Musculoskeletal: Normal Range of Motion Extremities: Present: +1 Edema (pitting bilateral leg edema) - Labs and Meds CBC 03/08/19 Range/Units 05:15 Hgb 14.0 (10.1-14.3) gm/dl Hct 42.9 (30.3-42.9) % Plt Count 204 (140-440) K/mm3 Comprehensive Metabolic Panel 03/07/19 03/08/19 Range/Units 16:00 05:15 Sodium 139 141 (137-145) mmol/L Potassium 3.3 L 3.4 L (3.6-5.0) mmol/L Chloride 97.6 L 99.9 (98-107) mmol/L Carbon Dioxide 32 H 32 H (22-30) mmol/L BUN 17 17 (7-17) mg/dL Creatinine 1.1 1.0 (0.7-1.2) mg/dL Glucose 152 H 92 (65-100) mg/dL Calcium 8.3 L 8.8 (8.4-10.2) mg/dL - Imaging and Cardiology EKG: report reviewed, image reviewed Echo: report reviewed (EF 15-20%, RV mildly diated, RA mildly dilated, mild to mod TR, RVSP 34mmHg, trivial pericardial effusion, increased RA pressure. ) - Allied health notes Allied health notes reviewed: nursing
--- NOTE | 2019-03-08 16:06 | Progress Note ---
Assessment and Plan Patient morbidly Obese.She is alert and awake. On 3 litres O2. Patient using BIPAP at night. O2 saturation 87% . No acute respiratory distress at rest. Patient has symptoms of sleep apnea. Her sleep study 10 years. Recommend sleep study as out patient. - Patient Problems (1) Acute respiratory failure with hypoxemia Current Visit: Yes Status: Acute Plan to address problem: O2 3 litres via nasal canula. BIPAP during night time. Albuterol/atrovent aerosol treatments q 6 hours. Patient is on I/V Heparin. Continue famotidine. Continue Zithromax. (2) Atrial flutter with rapid ventricular response Current Visit: Yes Status: Acute Plan to address problem: Management as per cardiology. Patient is on Amiodorone. Patient is on I/V Heparin. (3) CHF (congestive heart failure) Current Visit: Yes Status: Acute Qualifiers: Heart failure chronicity: acute on chronic Plan to address problem: Management as per cardiology. (4) HTN (hypertension) Current Visit: Yes Status: Chronic Qualifiers: Hypertension type: essential hypertension Qualified Code(s): I10 - Essential (primary) hypertension Plan to address problem: Management as per primary care. (5) History of asthma Current Visit: Yes Status: Chronic Plan to address problem: Albuterol/atrovent aerosol treatments q 6 hours. (6) Morbid obesity Current Visit: Yes Status: Chronic Plan to address problem: Recommend to loose weight. Diet and exercise. (7) Sleep apnea Current Visit: Yes Status: Chronic Qualifiers: Sleep apnea type: unspecified type Qualified Code(s): G47.30 - Sleep apnea, unspecified Plan to address problem: Patient is on BIPAP here. Recommend sleep study as out patient. Subjective Date of service: 03/08/19 Principal diagnosis: AFlutter with RVR, Acute on chronic HDrEF, CMP, KURTIS/OHS, HTN, Morbid Obesit Interval history: Patient morbidly Obese.She is alert and awake. On 3 litres O2. Patient using BIPAP at night. O2 saturation 87% . No acute respiratory distress at rest. Patient has symptoms of sleep apnea. Her sleep study 10 years. Recommend sleep study as out patient. Objective - Exam Narrative Exam: Patient morbidly Obese.She is alert and awake. On 3 litres O2. Patient using BIPAP at night. O2 saturation 87% . No acute respiratory distress at rest. Patient has symptoms of sleep apnea. Her sleep study 10 years. Recommend sleep study as out patient. Vital Signs - 12hr 03/08/19 03/08/19 03/08/19 04:44 05:18 05:48 Temperature 97.5 F L Pulse Rate 122 H 122 H Respiratory 19 20 20 Rate Blood Pressure 117/81 117/81 O2 Sat by Pulse 94 Oximetry 03/08/19 03/08/19 03/08/19 08:03 09:59 10:00 Temperature 97.8 F Pulse Rate 123 H Respiratory 18 20 Rate Blood Pressure 154/84 O2 Sat by Pulse 93 94 Oximetry 03/08/19 03/08/19 03/08/19 10:05 12:15 12:27 Temperature 98.0 F Pulse Rate 76 66 82 Respiratory 20 Rate Blood Pressure 112/83 128/73 123/73 O2 Sat by Pulse 92 Oximetry 03/08/19 15:57 Temperature 98.0 F Pulse Rate 78 Respiratory 18 Rate Blood Pressure 106/63 O2 Sat by Pulse 87 Oximetry Constitutional: no acute distress, alert, other (Morbidly Obese.) Eyes: non-icteric ENT: oropharynx moist, other (Mallampati 4) Neck: supple, no lymphadenopathy, no JVD, other (large neck circumference) Effort: mildly labored Ascultation: Bilateral: clear, diminished breath sounds Percussion: Bilateral: not dull Cardiovascular: irregular rhythm, other (No R/M) Gastrointestinal: normoactive bowel sounds, soft, non-tender, non-distended Integumentary: rash (stasis dermatitis to lower extremities) Extremities: no cyanosis, pulses normal, no ischemia or petechiae, edema (1+) Neurologic: normal mental status, non-focal exam, pupils equal and round, motor strength normal and Psychiatric: mood appropriate, affect normal CBC and BMP: 03/08/19 05:15 03/08/19 05:15 ABG, PT/INR, D-dimer: ABG POC ABG pH 7.368 (7.35-7.45) 03/01/19 09:46 POC ABG pCO2 43.1 (35-45) 03/01/19 09:46 POC ABG pO2 95 (80-105) 03/01/19 09:46 POC ABG HCO3 24.8 (22-26 mml/L) 03/01/19 09:46 POC ABG Total CO2 26 (23-27mmol/L) 03/01/19 09:46 POC ABG O2 Sat 97 03/01/19 09:46 PT/INR, D-dimer PT 16.9 Sec. (12.2-14.9) H 02/28/19 13:12 INR 1.41 (0.87-1.13) H 02/28/19 13:12 7368.96 ng/mlDDU (0-234) H 02/28/19 13:15 Abnormal lab findings: Abnormal Labs 02/28/19 02/28/19 02/28/19 13:12 13:12 13:12 RBC 5.36 H Hgb 16.3 H Hct 51.3 H RDW 15.6 H Lymph % (Auto) Richardson % (Auto) Lymph # Richardson # Seg Neutrophils % 78.2 H Seg Neutrophils # 8.4 H PT 16.9 H INR 1.41 H APTT 24.0 L D-Dimer Heparin Anti-Xa Level Potassium Chloride Carbon Dioxide 17 L BUN 18 H Glucose 195 H POC Glucose Calcium Magnesium Total Bilirubin 1.60 H Alkaline Phosphatase 167 H NT-Pro-B Natriuret Pep 3618 H Albumin 3.7 L 02/28/19 03/01/19 03/01/19 13:15 05:26 05:26 RBC Hgb 14.5 H Hct 44.7 H D RDW Lymph % (Auto) Richardson % (Auto) 9.0 H Lymph # Richardson # 0.9 H Seg Neutrophils % 72.4 H Seg Neutrophils # PT INR APTT D-Dimer 7368.96 H Heparin Anti-Xa Level Potassium Chloride Carbon Dioxide BUN 18 H Glucose 118 H POC Glucose Calcium Magnesium Total Bilirubin Alkaline Phosphatase NT-Pro-B Natriuret Pep Albumin 2.8 L 03/01/19 03/01/19 03/02/19 13:11 21:51 11:36 RBC Hgb Hct RDW Lymph % (Auto) Richardson % (Auto) Lymph # Richardson # Seg Neutrophils % Seg Neutrophils # PT INR APTT D-Dimer Heparin Anti-Xa Level < 0.10 L 0.97 H Potassium Chloride Carbon Dioxide BUN Glucose POC Glucose 149 H Calcium Magnesium Total Bilirubin Alkaline Phosphatase NT-Pro-B Natriuret Pep Albumin 03/02/19 03/02/19 03/02/19 12:00 12:00 17:56 RBC Hgb 14.9 H Hct 45.9 H RDW Lymph % (Auto) Richardson % (Auto) Lymph # Richardson # Seg Neutrophils % Seg Neutrophils # PT INR APTT D-Dimer Heparin Anti-Xa Level 0.11 L Potassium Chloride Carbon Dioxide BUN Glucose POC Glucose 140 H Calcium Magnesium Total Bilirubin Alkaline Phosphatase NT-Pro-B Natriuret Pep Albumin 03/02/19 03/03/19 03/03/19 22:02 20:37 22:22 RBC Hgb Hct RDW Lymph % (Auto) Richardson % (Auto) Lymph # Richardson # Seg Neutrophils % Seg Neutrophils # PT INR APTT D-Dimer Heparin Anti-Xa Level 0.26 L Potassium Chloride Carbon Dioxide BUN Glucose POC Glucose 124 H 117 H Calcium Magnesium Total Bilirubin Alkaline Phosphatase NT-Pro-B Natriuret Pep Albumin 03/04/19 03/04/19 03/04/19 04:24 04:24 12:53 RBC Hgb 15.3 H Hct 47.8 H RDW Lymph % (Auto) Richardson % (Auto) Lymph # Richardson # Seg Neutrophils % Seg Neutrophils # PT INR APTT D-Dimer Heparin Anti-Xa Level Potassium Chloride Carbon Dioxide BUN Glucose 109 H POC Glucose 122 H Calcium Magnesium Total Bilirubin Alkaline Phosphatase NT-Pro-B Natriuret Pep Albumin 03/04/19 03/05/19 03/05/19 17:20 07:46 07:56 RBC Hgb Hct RDW Lymph % (Auto) Richardson % (Auto) Lymph # Richardson # Seg Neutrophils % Seg Neutrophils # PT INR APTT D-Dimer Heparin Anti-Xa Level < 0.10 L Potassium Chloride Carbon Dioxide BUN Glucose POC Glucose 120 H 124 H Calcium Magnesium Total Bilirubin Alkaline Phosphatase NT-Pro-B Natriuret Pep Albumin 03/05/19 03/05/19 03/06/19 11:15 20:30 06:05 RBC Hgb 14.5 H Hct 44.4 H RDW Lymph % (Auto) Richardson % (Auto) Lymph # Richardson # Seg Neutrophils % Seg Neutrophils # PT INR APTT D-Dimer Heparin Anti-Xa Level < 0.10 L Potassium Chloride Carbon Dioxide BUN Glucose POC Glucose 118 H Calcium Magnesium Total Bilirubin Alkaline Phosphatase NT-Pro-B Natriuret Pep Albumin 03/06/19 03/06/19 03/06/19 06:05 06:05 08:00 RBC Hgb Hct RDW Lymph % (Auto) Richardson % (Auto) Lymph # Richardson # Seg Neutrophils % Seg Neutrophils # PT INR APTT D-Dimer Heparin Anti-Xa Level 1.62 H 1.52 H Potassium 2.9 L* D Chloride 97.2 L Carbon Dioxide 31 H BUN Glucose POC Glucose Calcium Magnesium Total Bilirubin Alkaline Phosphatase NT-Pro-B Natriuret Pep Albumin 03/06/19 03/06/19 03/07/19 16:46 17:15 00:30 RBC Hgb Hct RDW Lymph % (Auto) Richardson % (Auto) Lymph # Richardson # Seg Neutrophils % Seg Neutrophils # PT INR APTT D-Dimer Heparin Anti-Xa Level < 0.10 L 0.94 H Potassium Chloride Carbon Dioxide BUN Glucose POC Glucose 131 H Calcium Magnesium Total Bilirubin Alkaline Phosphatase NT-Pro-B Natriuret Pep Albumin 03/07/19 03/07/19 03/07/19 06:05 06:05 16:00 RBC Hgb 15.1 H Hct 46.5 H RDW Lymph % (Auto) 12.5 L Richardson % (Auto) 9.9 H Lymph # 1.1 L Richardson # Seg Neutrophils % 75.8 H Seg Neutrophils # PT INR APTT D-Dimer Heparin Anti-Xa Level Potassium 3.0 L 3.3 L Chloride 97.6 L Carbon Dioxide 32 H BUN Glucose 108 H 152 H POC Glucose Calcium 8.3 L Magnesium 1.60 L Total Bilirubin Alkaline Phosphatase NT-Pro-B Natriuret Pep Albumin 03/08/19 05:15 RBC Hgb Hct RDW Lymph % (Auto) Richardson % (Auto) Lymph # Richardson # Seg Neutrophils % Seg Neutrophils # PT INR APTT D-Dimer Heparin Anti-Xa Level Potassium 3.4 L Chloride Carbon Dioxide 32 H BUN Glucose POC Glucose Calcium Magnesium Total Bilirubin Alkaline Phosphatase NT-Pro-B Natriuret Pep Albumin Allied health notes reviewed: nursing
[2019-03-09] MEDS: CARDIZEM PO SCH ×4 (01:22→18:29)
[2019-03-09] MEDS: CORDARONE PO SCH ×3 (08:26→20:00)
--- NOTE | 2019-03-09 08:43 | Progress Note ---
Assessment and Plan Acute Hypoxemic Respiratory Failure on NIPPV Atrial Fib/flutter with RVR Acute CHF exacerbation (New Onset HFrEF) KURTIS/OHS Extreme Obesity Hyperglycemia HTN Left pleural effusion - continue supplemental oxygen as needed to keep O2 sat's > 90% - continue IV heparin drip for anticoagulation re: A-fib - continue Amiodarone for rate & rhythm control - continue BIPAP scheduled qhs with prn daytime use - continue diuresis with furosemide (currently 40 mg IV bid) -Monitor renal function and hemodynamics closely while on diuretic therapy - conservative management for effusion, follow up CXR to document resolution - optimize heart failure measures per cardiology team (on ARB, aldactone, metoprolol) -Transthoracic echocardiogram to evaluate LVEF and for pulmonary HTN - weight loss and lifestyle modifications counselled, may benefit from evaluation for surgical weight loss - follow electrolytes and correct as necessary - VTE prophylaxis -Mobility for pressure ulcer prevention - Schneider catheter in this extremely obese patient with need fro accurate intake and output monitoring. Will re-assess ongoing need for schneider catheter in nevin morning - flu and pneumovax addressed per protocol CONDITION: CRITICAL PROGNOSIS: GUARDED CODE STATUS: FULL CODE The high probability of a clinically significant, sudden or life-threatening deterioration of the cardiac, respiratory systems required my full and direct attention, intervention and personal management. The aggregate critical care time was [45] minutes without overlap. Time includes spent on; [x] Data Review and interpretation [x] Patient assessment and monitoring of vital signs [x] Documentation [x] Medication orders and management Subjective Date of service: 03/09/19 Principal diagnosis: AFlutter with RVR, Acute on chronic HDrEF, CMP, KURTIS/OHS, HTN, Morbid Obesit Interval history: Patient is seen today for: Atrial Fib/flutter with RVR; COPD; AcuteCHF exacerbation (New Onset HFrEF); KURTIS/OHS Seen and examined at bedside; 24hour events reviewed; nursing and respiratory care staff consulted; no adverse overnight events reported to me; resting peacefully in bed; feels better; tolerating BIPAP well so far; denies acute chest pains or palpitations; remains on amiodarone drip as well as I.V. heparin; No N/V/F/C; orthopnea is better Objective Vital Signs - 12hr 03/08/19 03/08/19 03/08/19 20:50 21:07 22:00 Temperature Pulse Rate 76 Pulse Rate [ 68 Apical] Respiratory 22 Rate Blood Pressure O2 Sat by Pulse 92 Oximetry 03/08/19 03/08/19 03/09/19 22:17 23:38 01:22 Temperature 98.2 F Pulse Rate 70 77 82 Pulse Rate [ Apical] Respiratory 19 Rate Blood Pressure 95/66 107/72 107/72 O2 Sat by Pulse 85 Oximetry 03/09/19 03/09/19 03/09/19 02:01 03:27 05:05 Temperature 97.9 F Pulse Rate 63 92 H 82 Pulse Rate [ Apical] Respiratory 21 20 Rate Blood Pressure 119/87 119/87 O2 Sat by Pulse 100 84 Oximetry 03/09/19 03/09/19 07:28 07:42 Temperature 98.3 F Pulse Rate 90 Pulse Rate [ Apical] Respiratory 20 Rate Blood Pressure 132/82 O2 Sat by Pulse 98 98 Oximetry Constitutional: no acute distress, alert, other (Morbidly Obese.) Eyes: non-icteric ENT: oropharynx moist, other (Mallampati 4) Neck: supple, no lymphadenopathy, no JVD, other (large neck circumference) Effort: mildly labored Ascultation: Bilateral: clear, diminished breath sounds Percussion: Bilateral: not dull Cardiovascular: irregular rhythm, other (No R/M) Gastrointestinal: normoactive bowel sounds, soft, non-tender, non-distended Integumentary: rash (stasis dermatitis to lower extremities) Extremities: no cyanosis, pulses normal, no ischemia or petechiae, edema (1+) Neurologic: normal mental status, non-focal exam, pupils equal and round, motor strength normal and Psychiatric: mood appropriate, affect normal CBC and BMP: 03/08/19 05:15 03/09/19 Unknown ABG, PT/INR, D-dimer: ABG POC ABG pH 7.368 (7.35-7.45) 03/01/19 09:46 POC ABG pCO2 43.1 (35-45) 03/01/19 09:46 POC ABG pO2 95 (80-105) 03/01/19 09:46 POC ABG HCO3 24.8 (22-26 mml/L) 03/01/19 09:46 POC ABG Total CO2 26 (23-27mmol/L) 03/01/19 09:46 POC ABG O2 Sat 97 03/01/19 09:46 PT/INR, D-dimer PT 16.9 Sec. (12.2-14.9) H 02/28/19 13:12 INR 1.41 (0.87-1.13) H 02/28/19 13:12 7368.96 ng/mlDDU (0-234) H 02/28/19 13:15 Abnormal lab findings: Abnormal Labs 02/28/19 02/28/19 02/28/19 13:12 13:12 13:12 RBC 5.36 H Hgb 16.3 H Hct 51.3 H RDW 15.6 H Lymph % (Auto) [place] % (Auto) Lymph # Sanders # Seg Neutrophils % 78.2 H Seg Neutrophils # 8.4 H PT 16.9 H INR 1.41 H APTT 24.0 L D-Dimer Heparin Anti-Xa Level Potassium Chloride Carbon Dioxide 17 L BUN 18 H Glucose 195 H POC Glucose Calcium Magnesium Total Bilirubin 1.60 H Alkaline Phosphatase 167 H NT-Pro-B Natriuret Pep 3618 H Albumin 3.7 L 02/28/19 03/01/19 03/01/19 13:15 05:26 05:26 RBC Hgb 14.5 H Hct 44.7 H D RDW Lymph % (Auto) [place] % (Auto) 9.0 H Lymph # Sanders # 0.9 H Seg Neutrophils % 72.4 H Seg Neutrophils # PT INR APTT D-Dimer 7368.96 H Heparin Anti-Xa Level Potassium Chloride Carbon Dioxide BUN 18 H Glucose 118 H POC Glucose Calcium Magnesium Total Bilirubin Alkaline Phosphatase NT-Pro-B Natriuret Pep Albumin 2.8 L 03/01/19 03/01/19 03/02/19 13:11 21:51 11:36 RBC Hgb Hct RDW Lymph % (Auto) [place] % (Auto) Lymph # [place] # Seg Neutrophils % Seg Neutrophils # PT INR APTT D-Dimer Heparin Anti-Xa Level < 0.10 L 0.97 H Potassium Chloride Carbon Dioxide BUN Glucose POC Glucose 149 H Calcium Magnesium Total Bilirubin Alkaline Phosphatase NT-Pro-B Natriuret Pep Albumin 03/02/19 03/02/19 03/02/19 12:00 12:00 17:56 RBC Hgb 14.9 H Hct 45.9 H RDW Lymph % (Auto) [place] % (Auto) Lymph # [place] # Seg Neutrophils % Seg Neutrophils # PT INR APTT D-Dimer Heparin Anti-Xa Level 0.11 L Potassium Chloride Carbon Dioxide BUN Glucose POC Glucose 140 H Calcium Magnesium Total Bilirubin Alkaline Phosphatase NT-Pro-B Natriuret Pep Albumin 03/02/19 03/03/19 03/03/19 22:02 20:37 22:22 RBC Hgb Hct RDW Lymph % (Auto) [place] % (Auto) Lymph # [place] # Seg Neutrophils % Seg Neutrophils # PT INR APTT D-Dimer Heparin Anti-Xa Level 0.26 L Potassium Chloride Carbon Dioxide BUN Glucose POC Glucose 124 H 117 H Calcium Magnesium Total Bilirubin Alkaline Phosphatase NT-Pro-B Natriuret Pep Albumin 03/04/19 03/04/19 03/04/19 04:24 04:24 12:53 RBC Hgb 15.3 H Hct 47.8 H RDW Lymph % (Auto) [place] % (Auto) Lymph # [place] # Seg Neutrophils % Seg Neutrophils # PT INR APTT D-Dimer Heparin Anti-Xa Level Potassium Chloride Carbon Dioxide BUN Glucose 109 H POC Glucose 122 H Calcium Magnesium Total Bilirubin Alkaline Phosphatase NT-Pro-B Natriuret Pep Albumin 03/04/19 03/05/19 03/05/19 17:20 07:46 07:56 RBC Hgb Hct RDW Lymph % (Auto) [place] % (Auto) Lymph # [place] # Seg Neutrophils % Seg Neutrophils # PT INR APTT D-Dimer Heparin Anti-Xa Level < 0.10 L Potassium Chloride Carbon Dioxide BUN Glucose POC Glucose 120 H 124 H Calcium Magnesium Total Bilirubin Alkaline Phosphatase NT-Pro-B Natriuret Pep Albumin 03/05/19 03/05/19 03/06/19 11:15 20:30 06:05 RBC Hgb 14.5 H Hct 44.4 H RDW Lymph % (Auto) [place] % (Auto) Lymph # [place] # Seg Neutrophils % Seg Neutrophils # PT INR APTT D-Dimer Heparin Anti-Xa Level < 0.10 L Potassium Chloride Carbon Dioxide BUN Glucose POC Glucose 118 H Calcium Magnesium Total Bilirubin Alkaline Phosphatase NT-Pro-B Natriuret Pep Albumin 03/06/19 03/06/19 03/06/19 06:05 06:05 08:00 RBC Hgb Hct RDW Lymph % (Auto) [place] % (Auto) Lymph # [place] # Seg Neutrophils % Seg Neutrophils # PT INR APTT D-Dimer Heparin Anti-Xa Level 1.62 H 1.52 H Potassium 2.9 L* D Chloride 97.2 L Carbon Dioxide 31 H BUN Glucose POC Glucose Calcium Magnesium Total Bilirubin Alkaline Phosphatase NT-Pro-B Natriuret Pep Albumin 03/06/19 03/06/19 03/07/19 16:46 17:15 00:30 RBC Hgb Hct RDW Lymph % (Auto) [place] % (Auto) Lymph # [place] # Seg Neutrophils % Seg Neutrophils # PT INR APTT D-Dimer Heparin Anti-Xa Level < 0.10 L 0.94 H Potassium Chloride Carbon Dioxide BUN Glucose POC Glucose 131 H Calcium Magnesium Total Bilirubin Alkaline Phosphatase NT-Pro-B Natriuret Pep Albumin 03/07/19 03/07/19 03/07/19 06:05 06:05 16:00 RBC Hgb 15.1 H Hct 46.5 H RDW Lymph % (Auto) 12.5 L [place] % (Auto) 9.9 H Lymph # 1.1 L [place] # Seg Neutrophils % 75.8 H Seg Neutrophils # PT INR APTT D-Dimer Heparin Anti-Xa Level Potassium 3.0 L 3.3 L Chloride 97.6 L Carbon Dioxide 32 H BUN Glucose 108 H 152 H POC Glucose Calcium 8.3 L Magnesium 1.60 L Total Bilirubin Alkaline Phosphatase NT-Pro-B Natriuret Pep Albumin 03/08/19 03/09/19 05:15 Unknown RBC Hgb Hct RDW Lymph % (Auto) [place] % (Auto) Lymph # [place] # Seg Neutrophils % Seg Neutrophils # PT INR APTT D-Dimer Heparin Anti-Xa Level Potassium 3.4 L 3.4 L Chloride Carbon Dioxide 32 H BUN Glucose POC Glucose Calcium Magnesium Total Bilirubin Alkaline Phosphatase NT-Pro-B Natriuret Pep Albumin Allied health notes reviewed: nursing
--- NOTE | 2019-03-09 08:59 | Progress Note ---
Assessment and Plan Assessment and plan: Acute HFrEF. Echo revealed - EF 15-20%, RV mildly diated, RA mildly dilated, mild to mod TR, RVSP 34mmHg, trivial pericardial effusion, increased RA pressure. Cont losartan, aldactone, IV lasix as tolerated. Cardiomyopathy. As above. We are unable to pursue an ischemic evaluation at this time to r/o ischemic CMP due to pt's weight. Cardiac defibrillator (LifeVest) recommended in setting of severe cardiomyopathy. Pt was agreeable and LifeVest ordered, patient has with her. Hypokalemia. Repleted DVT right subclavian vein, int jugular and axillary veins. patient on Eliquis already for afib Consult vasc surg Acute hypoxic respiratory failure. Etiology multifactorial secondary to acute systolic heart failure, COPD, KURTIS and OHS. Continue supplemental Oxygen and BiPAP at night and as clinically indicated. Atrial flutter with rapid ventricular response. Continue amiodarone and increa sed lopressor dosage per cardiology. Started on Eliquis. Hypertension. Continue antihypertensive medications. Morbid obesity. Was awaiting inpatient rehab placement. She now has bed offered today, but need to adjust cardiac medications and address new DVT prior to discharge. History Interval history: Less shortness of breath No chest pain currently Right upper ext swelling Hospitalist Physical - Physical exam Narrative exam: Gen: Not in acute distress, lying in bed, morbidly obese HEENT: Normocephalic, atraumatic Neck: supple, no JVD Heart: S1 and S2 reg, no murmurs, rubs or gallop Lungs: Clear, no crackles or wheeze Abd: soft, non tender, non distended, normal BS Ext: Bilateral lower ext edema, right upper ext edema,no clubbing, no cyanosis Neuro:awake,alert, Oriented X 3. No focal signs Psych: Normal mood - Constitutional Vitals: Temp Pulse Resp BP Pulse Ox 98.3 F 90 20 132/82 98 03/09/19 07:28 03/09/19 07:28 03/09/19 07:28 03/09/19 07:28 03/09/19 07:42 General appearance: Present: no acute distress, obese Results - Labs CBC & Chem 7: 03/08/19 05:15 03/09/19 Unknown Labs: Laboratory Last Values WBC 8.5 K/mm3 (4.5-11.0) 03/07/19 06:05 RBC 4.92 M/mm3 (3.65-5.03) 03/07/19 06:05 Hgb 14.0 gm/dl (10.1-14.3) 03/08/19 05:15 Hct 42.9 % (30.3-42.9) 03/08/19 05:15 MCV 95 fl (79-97) 03/07/19 06:05 MCH 31 pg (28-32) 03/07/19 06:05 MCHC 33 % (30-34) 03/07/19 06:05 RDW 14.8 % (13.2-15.2) 03/07/19 06:05 Plt Count 204 K/mm3 (140-440) 03/08/19 05:15 Lymph % (Auto) 12.5 % (13.4-35.0) L 03/07/19 06:05 [place] % (Auto) 9.9 % (0.0-7.3) H 03/07/19 06:05 Eos % (Auto) 1.1 % (0.0-4.3) 03/07/19 06:05 Baso % (Auto) 0.7 % (0.0-1.8) 03/07/19 06:05 Lymph # 1.1 K/mm3 (1.2-5.4) L 03/07/19 06:05 [place] # 0.8 K/mm3 (0.0-0.8) 03/07/19 06:05 Eos # 0.1 K/mm3 (0.0-0.4) 03/07/19 06:05 Baso # 0.1 K/mm3 (0.0-0.1) 03/07/19 06:05 Seg Neutrophils % 75.8 % (40.0-70.0) H 03/07/19 06:05 Seg Neutrophils # 6.4 K/mm3 (1.8-7.7) 03/07/19 06:05 PT 16.9 Sec. (12.2-14.9) H 02/28/19 13:12 INR 1.41 (0.87-1.13) H 02/28/19 13:12 APTT 24.0 Sec. (24.2-36.6) L 02/28/19 13:12 7368.96 ng/mlDDU (0-234) H 02/28/19 13:15 Heparin Anti-Xa Level 0.94 U.I./ml (0.3-0.7) H 03/07/19 00:30 POC ABG pH 7.368 (7.35-7.45) 03/01/19 09:46 POC ABG pCO2 43.1 (35-45) 03/01/19 09:46 POC ABG pO2 95 (80-105) 03/01/19 09:46 POC ABG HCO3 24.8 (22-26 mml/L) 03/01/19 09:46 POC ABG Total CO2 26 (23-27mmol/L) 03/01/19 09:46 POC ABG O2 Sat 97 03/01/19 09:46 POC ABG Base Excess 0 ((-2) - (+3)mmol/L) 03/01/19 09:46 50 % 03/01/19 09:46 Sodium 141 mmol/L (137-145) 03/08/19 05:15 Potassium 3.4 mmol/L (3.6-5.0) L 03/09/19 Unknown Chloride 99.9 mmol/L (98-107) 03/08/19 05:15 Carbon Dioxide 32 mmol/L (22-30) H 03/08/19 05:15 13 mmol/L 03/08/19 05:15 BUN 17 mg/dL (7-17) 03/08/19 05:15 1.0 mg/dL (0.7-1.2) 03/08/19 05:15 Estimated GFR > 60 ml/min 03/08/19 05:15 17 % 03/08/19 05:15 Glucose 92 mg/dL (65-100) 03/08/19 05:15 POC Glucose 131 (70-105) H 03/06/19 16:46 Calcium 8.8 mg/dL (8.4-10.2) 03/08/19 05:15 Magnesium 1.90 mg/dL (1.7-2.3) 03/08/19 05:15 1.00 mg/dL (0.1-1.2) 03/01/19 05:26 AST 23 units/L (5-40) 03/01/19 05:26 ALT 21 units/L (7-56) 03/01/19 05:26 128 units/L (35-129) 03/01/19 05:26 < 0.010 ng/mL (0.00-0.029) 02/28/19 21:38 NT-Pro-B Natriuret Pep 3618 pg/mL (0-900) H 02/28/19 13:12 6.4 g/dL (6.3-8.2) 03/01/19 05:26 2.8 g/dL (3.9-5) L 03/01/19 05:26 0.8 % 03/01/19 05:26 TSH 2.830 mlU/mL (0.270-4.200) 02/28/19 21:38 TSH 2.870 mlU/mL (0.270-4.200) 02/28/19 21:38 Free T4 1.24 ng/dL (0.76-1.46) 02/28/19 21:38 Free T4 1.26 ng/dL (0.76-1.46) 02/28/19 21:38 Yellow (Yellow) 02/28/19 18:00 Slightly-cloudy (Clear) 02/28/19 18:00 5.0 (5.0-7.0) 02/28/19 18:00 Ur Specific [place] 1.008 (1.003-1.030) 02/28/19 18:00 <15 mg/dl mg/dL (Negative) 02/28/19 18:00 Neg mg/dL (Negative) 02/28/19 18:00 Neg mg/dL (Negative) 02/28/19 18:00 Sm (Negative) 02/28/19 18:00 Neg (Negative) 02/28/19 18:00 Neg (Negative) 02/28/19 18:00 < 2.0 mg/dL (<2.0) 02/28/19 18:00 Ur Leukocyte Esterase Neg (Negative) 02/28/19 18:00 < 1.0 /HPF (0.0-6.0) 02/28/19 18:00 1.0 /HPF (0.0-6.0) 02/28/19 18:00 U Epithel Cells (Auto) 1.0 /HPF (0-13.0) 02/28/19 18:00 1+ /HPF (Negative) 02/28/19 18:00 Hyaline Casts 1 /LPF 02/28/19 18:00 Few /HPF 02/28/19 18:00 Active Medications - Current Medications Current Medications: Generic Name Dose Route Start Last Admin Trade Name Freq PRN Reason Stop Dose Admin Acetaminophen 650 mg 02/28/19 17:01 03/03/19 20:37 Tylenol PO 650 mg Q4H PRN Administration Pain MILD(1-3)/Fever >100.5/TAYLOR Amiodarone HCl 400 mg 03/07/19 14:00 03/09/19 08:26 Cordarone PO 400 mg TID SULAIMAN Administration Apixaban 5 mg 03/07/19 13:00 03/08/19 22:09 Eliquis PO 5 mg Q12HR SULAIMAN Administration Protocol Azithromycin 500 mg 03/04/19 18:00 03/08/19 10:04 Zithromax PO 500 mg QDAY SULAIMAN Administration Carvedilol 25 mg 03/07/19 11:00 03/08/19 22:17 Coreg PO Not Given BID SULAIMAN Diltiazem HCl 60 mg 03/07/19 12:00 03/09/19 05:05 Cardizem PO 60 mg Q6HR SULAIMAN Administration Famotidine 20 mg 03/02/19 15:00 03/08/19 10:04 Pepcid PO 20 mg QDAY SULAIMAN Administration Furosemide 40 mg 02/28/19 16:00 03/08/19 22:09 Lasix IV 40 mg BID SULAIMAN Administration Losartan Potassium 12.5 mg 03/02/19 10:00 03/08/19 10:05 Cozaar PO 12.5 mg QDAY SULAIMAN Administration Morphine Sulfate 2 mg 03/05/19 21:03 03/08/19 14:58 Morphine IV 2 mg Q4H PRN Administration Pain, Moderate (4-6) Ondansetron HCl 4 mg 02/28/19 17:01 Zofran IV Q8H PRN Nausea And Vomiting Sodium Chloride 10 ml 02/28/19 22:00 03/08/19 22:12 Sodium Chloride Flush Syringe 10 Ml IV 10 ml BID SULAIMAN Administration Sodium Chloride 10 ml 02/28/19 17:01 Sodium Chloride Flush Syringe 10 Ml IV PRN PRN LINE FLUSH Spironolactone 25 mg 03/06/19 13:57 03/08/19 10:05 Aldactone PO 25 mg QDAY SULAIMAN Administration Nutrition/Malnutrition Assess - Dietary Evaluation Nutrition/Malnutrition Findings: Nutrition Notes Start: 03/06/19 17:09 Freq: Status: Active Protocol: Document 03/06/19 17:09 RM (Rec: 03/06/19 17:17 RM [id number]) Nutrition Notes Initial or Follow up Assessment Current Diagnosis COPD,Hypertension,Heart Failure Other Pertinent Diagnosis Lymphedema Current Diet Cardiac/Consistent CHO Labs/Tests Reviewed Pertinent Medications Lasix Height 5 ft 7 in Weight 255.7 kg [place] Body Weight (kg) 61.36 BMI 88.2 Subjective/Other Information Pt screened for very high BMI. Pt appeared to have high BMI. Stated that her appetite is " so so" d/t stomach pain and that she ate 25% of her lunch. Admitted to diarrhea. Declined regular ONS d/t it causing diarrhea in the past. Unsure of UBW. Burn Absent Trauma Absent #1 Nutrition Diagnosis Inadequate oral intake Etiology stomach pain As Evidenced by Signs and Symptoms pt statement that she ate 25% of her luch Is patient on ventilator? No Is Patient Ambulatory and/or Out of Bed No REE-([facility]-confined to bed) 3817.860 Kcal/Kg value to use for calculation 11 Approximate Energy Requirements Using 2813 kcal/Kg Calculation Used for Recommendations Kcal/kg Additional Notes Protein Needs: 49-61g (0.8-1g/ kg adjBW) Fluid Needs: 1 ml/kcal Nutrition Intervention Change Diet Order: Cardiac, Consistent CHO, GI soft diet Add Supplement/Snack (indicate name/kcal Ensure Clear Apple 1 daily /protein ) Provides kCal: 240 Provides Protein (gm) 8 Goal #1 Meet at least 75% of calorie and protein needs via PO and ONS intakes Anticipated Discharge Needs: Unable to determine at this time Follow-Up By: 03/09/19 Additional Comments Follow for PO and ONS intakes
[2019-03-09] MEDS: COZAAR PO SCH (09:51)
[2019-03-09] MEDS: ELIQUIS PO SCH ×2 (09:51→22:11)
[2019-03-09] MEDS: ZITHROMAX PO SCH (09:51)
[2019-03-09] MEDS: COREG PO SCH ×2 (09:51→23:44)
[2019-03-09] MEDS: LASIX IV SCH ×2 (09:51→23:45)
[2019-03-09] MEDS: PEPCID PO SCH (09:51)
[2019-03-09] MEDS: ALDACTONE PO SCH (09:51)
[2019-03-09] MEDS: SODIUM CHLORIDE FLUSH SYRINGE 10 ML IV SCH ×2 (09:52→22:12)
[2019-03-09] MEDS: K-DUR PO SCH ×2 (09:56→13:46)
[2019-03-09] MEDS: MORPHINE IV PRN ×3 (09:56→18:29)
--- NOTE | 2019-03-09 11:53 | Progress Note ---
Assessment and Plan DC plans from tomorrow from a cardiac standpoint. - Patient Problems (1) Acute respiratory failure with hypoxemia Current Visit: Yes Status: Acute (2) Atrial flutter with rapid ventricular response Current Visit: Yes Status: Acute (3) Acute on chronic HFrEF (heart failure with reduced ejection fraction) Current Visit: Yes Status: Acute (4) Cardiomyopathy Current Visit: Yes Status: Chronic (5) KURTIS (obstructive sleep apnea) Current Visit: Yes Status: Chronic (6) Obesity hypoventilation syndrome Current Visit: Yes Status: Chronic (7) HTN (hypertension) Current Visit: Yes Status: Chronic Qualifiers: Hypertension type: essential hypertension Qualified Code(s): I10 - Essential (primary) hypertension (8) Morbid obesity Current Visit: Yes Status: Chronic Subjective Date of service: 03/09/19 Principal diagnosis: AFlutter with RVR, Acute on chronic HDrEF, CMP, KURTIS/OHS, HTN, Morbid Obesit Interval history: c/o mild chest tightness this am. In AFlutter with controlled ventricular response. Objective Vital Signs Temp Pulse Pulse Resp BP Pulse Ox 03/09/19 10:00 90 03/09/19 07:42 98 03/09/19 07:28 98.3 F 90 20 132/82 98 03/09/19 05:05 82 119/87 03/09/19 03:27 97.9 F 92 H 20 119/87 84 03/09/19 02:01 63 21 100 03/09/19 01:22 82 107/72 03/08/19 23:38 98.2 F 77 19 107/72 85 03/08/19 22:17 70 95/66 03/08/19 22:00 76 03/08/19 21:07 92 03/08/19 20:50 68 22 03/08/19 19:55 98.1 F 67 20 95/66 90 03/08/19 17:48 82 107/75 03/08/19 15:57 98.0 F 78 18 106/63 87 03/08/19 12:27 82 123/73 03/08/19 12:15 98.0 F 66 20 128/73 92 - Physical Examination General: No Apparent Distress HEENT: Positive: EOMI, Normocephaly, Mucus Membranes Moist Neck: Positive: neck supple, trachea midline Cardiac: Positive: Irregularly Regular Lungs: Positive: clear to auscultation Neuro: Positive: Grossly Intact Abdomen: Positive: Soft, Active Bowel Sounds. Negative: Tender Skin: Negative: Rash Musculoskeletal: Normal Range of Motion Extremities: Present: +1 Edema (pitting bilateral leg edema) - Labs and Meds Comprehensive Metabolic Panel 03/09/19 Range/Units Unknown Potassium 3.4 L (3.6-5.0) mmol/L - Imaging and Cardiology EKG: report reviewed, image reviewed Echo: report reviewed (EF 15-20%, RV mildly diated, RA mildly dilated, mild to mod TR, RVSP 34mmHg, trivial pericardial effusion, increased RA pressure. ) - Telemetry EKG Rhythm: Atrial Flutter - EKG Supraventricular dysrhythmia: atrial flutter - Allied health notes Allied health notes reviewed: nursing
--- NOTE | 2019-03-09 14:47 | Discharge Summary ---
Providers - Providers Date of Admission: 02/28/19 17:01 Date of discharge: 03/09/19 Attending physician: ANABEL MOHAN 02/28/19 15:31 Consult to Cardiology [CONS] Routine Consulting Provider: JESSY CRABTREE Reason For Exam: A-flutter with RVR, CHF 03/01/19 04:41 Consult to Physician [CONS] Routine Comment: Consulting Provider: IVÁN HAGER Physician Instructions: Reason For Exam: cc 03/01/19 15:26 Physical Therapy Evaluation and Treat [CONS] Routine Comment: Reason For Exam: Debility 03/01/19 15:28 Occupational Therapy Evaluate and Treat [CONS] Routine Comment: Reason For Exam: Debility 03/04/19 13:10 PICC Line Placement [Consult to PICC Line RN] [CONS] Stat Reason For Exam: difficult to start iv Type Line:: PICC [facility]: [facility] Hospitalization Condition: Fair Hospital course: Patient is 54 YO Female with morbid obesity, hypoventilation syndrome, hypertension, KURTIS noncompliant with CPAP, Lymphedema, Debility, OA, COPD. She presented to ED for evaluation for shortness of breath and palpitationss. She was seen and evaluated in ED and found to have new onset Atrial Fib with RVR, Acute Hypoxemic Respiratory Failure, as well as symptoms consistent with CHF Decompensation. Cardiology consulted in ED. Pt initiated on therapeutic anticoagulation and admitted to telemetry.Patient had a prolonged course, improved slowly and eventually discharged to Rehab facility on 03/09/19. Acute HFrEF. Echo revealed - EF 15-20%, RV mildly diated, RA mildly dilated, m ild to mod TR, RVSP 34mmHg, trivial pericardial effusion, increased RA pressure. Cont losartan, aldactone, IV lasix as tolerated. Cardiomyopathy. As above. Cardiac defibrillator (LifeVest) recommended in setting of severe cardiomyopathy. Pt was agreeable and LifeVest ordered, patient has with her. Hypokalemia. Repleted DVT right subclavian vein, int jugular and axillary veins. patient on Eliquis already for afib Acute hypoxic respiratory failure. Etiology multifactorial secondary to acute systolic heart failure, COPD, KURTIS and OHS. Continue supplemental Oxygen Atrial flutter with rapid ventricular response. Continue amiodarone and increased lopressor dosage per cardiology. Started on Eliquis. Hypertension. Continue antihypertensive medications. Morbid obesity. Total time spent on discharge 44 mins Disposition: DC/TX-03 [facility] - Discharge Diagnoses (1) Acute HFrEF (heart failure with reduced ejection fraction) Status: Acute (2) Acute on chronic HFrEF (heart failure with reduced ejection fraction) Status: Acute (3) Acute respiratory failure with hypoxemia Status: Acute (4) Atrial flutter with rapid ventricular response Status: Acute (5) Cardiomyopathy Status: Chronic (6) HTN (hypertension) Status: Chronic Qualifiers: Hypertension type: essential hypertension Qualified Code(s): I10 - Essential (primary) hypertension (7) Lymphedema Status: Chronic (8) Morbid obesity Status: Chronic (9) KURTIS (obstructive sleep apnea) Status: Chronic (10) Obesity hypoventilation syndrome Status: Chronic (11) Sleep apnea Status: Chronic Qualifiers: Sleep apnea type: unspecified type Qualified Code(s): G47.30 - Sleep apnea, unspecified (12) DVT of axillary vein, acute Status: Acute (13) DVT (deep venous thrombosis) Status: Acute Core Measure Documentation - Palliative Care Palliative Care/ Comfort Measures: Not Applicable - Core Measures Any of the following diagnoses?: heart failure - Heart Failure Discharge Requirements KAN/ARB for LVSD if EF <40%: Yes Beta lupillo at discharge: Yes Exam - Constitutional Vitals: Temp Pulse Resp BP Pulse Ox 98.2 F 66 20 122/70 93 03/09/19 13:06 03/09/19 14:21 03/09/19 14:21 03/09/19 13:06 03/09/19 13:06 Plan Activity: advance as tolerated Diet: low fat, low cholesterol, low salt Additional Instructions: 1.Follow up with Physician at Acute Rehab in 2-3 days. 2.Follow up with Cardiology, Dr. Thomson in 1 week. 3.Follow up with [facility], Dr. Izquierdo in 1 week. 3.Keep Lifevest on. Follow up with: REAGAN HOFFMAN MD [Primary Care Provider] - 7 Days Prescriptions: Spironolactone [Aldactone] 25 mg PO QDAY #30 tablet dilTIAZem CD [Cardizem Cd] 180 mg PO QDAY #30 cap Amiodarone [Cordarone 200 MG TAB] 200 mg PO BID #60 tablet Carvedilol [Coreg] 25 mg PO BID #60 tablet Losartan [Cozaar] 12.5 mg PO QDAY #30 tablet Apixaban [Eliquis] 5 mg PO Q12HR #60 tablet Famotidine [Pepcid] 20 mg PO QDAY #60 tablet
--- NOTE | 2019-03-09 17:06 | Vascular Lab Report ---
DUPLEX DOPPLER RIGHT UPPER EXTREMITY VEINS INDICATION: right upper extremity swelling and pain FINDINGS: This is a limited study secondary to body body habitus and technical limitations. The brachial vein, radial vein and ulnar veins and basilic veins. Acute DVT is seen in the internal jugular vein, subclavian vein and axillary vein. IMPRESSION: This exam is positive for DVT in the right internal jugular vein, subclavian vein and axi llary veins. There were technical limitations of the exam which limited evaluation of the deep veins of the arm pe ripheral to the axillary vein. CRITICAL RESULT: Dr. Polk called this report to the patient's nurse, Velasquez, at time 1601. Report was confirmed. Signer Name: Misael Polk MD Signed: 03/09/2019 5:01 PM Workstation Name: [id number]
[2019-03-10] MEDS: CARDIZEM PO SCH ×3 (00:29→12:37)
[2019-03-10] MEDS: MORPHINE IV PRN ×2 (00:30→09:20)
[2019-03-10] MEDS: CORDARONE PO SCH (08:33)
--- NOTE | 2019-03-10 09:11 | Consultation ---
History of Present Illness - Reason for Consult Consult date: 03/10/19 right upper extremity DVT - History of Present Illness Patient with a history of morbid obesity and decreased mobility secondary to fall recently. The patient is noted to have a PICC line in her left upper arm. She noticed during this hospitalization increased swelling to her right arm and hand. An ultrasound was performed which demonstrates a DVT extending into the right IJ. Patient has no prior history of DVT. Past History Past Medical History: COPD, hypertension, other (sleep apnea,lymphedema) Social history: single. denies: smoking, alcohol abuse, prescription drug abuse Family history: diabetes, hypertension Medications and Allergies Allergies Allergy/AdvReac Type Severity Reaction Status Date / Time No Known Allergies Allergy Unverified 05/12/17 09:15 Home Medications Medication Instructions Recorded Confirmed Last Taken Type Amiodarone [Cordarone 200 MG TAB] 400 mg PO TID #180 tablet 03/09/19 Unknown Rx Apixaban [Eliquis] 5 mg PO Q12HR #60 tablet 03/09/19 Unknown Rx Carvedilol [Coreg] 25 mg PO BID #60 tablet 03/09/19 Unknown Rx Famotidine [Pepcid] 20 mg PO QDAY #60 tablet 03/09/19 Unknown Rx Losartan [Cozaar] 12.5 mg PO QDAY #30 tablet 03/09/19 Unknown Rx Spironolactone [Aldactone] 25 mg PO QDAY #30 tablet 03/09/19 Unknown Rx Active Meds: Active Medications Acetaminophen (Tylenol) 650 mg PO Q4H PRN PRN Reason: Pain MILD(1-3)/Fever >100.5/TAYLOR Last Admin: 03/03/19 20:37 Dose: 650 mg Documented by: Amiodarone HCl (Cordarone) 400 mg PO TID [facility] Last Admin: 03/10/19 08:33 Dose: 400 mg Documented by: Apixaban (Eliquis) 5 mg PO Q12HR [facility]; Protocol Last Admin: 03/09/19 22:11 Dose: 5 mg Documented by: Azithromycin (Zithromax) 500 mg PO QDAY [facility] Last Admin: 03/09/19 09:51 Dose: 500 mg Documented by: Carvedilol (Coreg) 25 mg PO BID [facility] Last Admin: 03/09/19 23:44 Dose: Not Given Documented by: Diltiazem HCl (Cardizem) 60 mg PO Q6HR [facility] Last Admin: 03/10/19 06:01 Dose: 60 mg Documented by: Famotidine (Pepcid) 20 mg PO QDAY [facility] Last Admin: 03/09/19 09:51 Dose: 20 mg Documented by: Furosemide (Lasix) 40 mg IV BID [facility] Last Admin: 03/09/19 23:45 Dose: Not Given Documented by: Losartan Potassium (Cozaar) 12.5 mg PO QDAY [facility] Last Admin: 03/09/19 09:51 Dose: 12.5 mg Documented by: Morphine Sulfate (Morphine) 2 mg IV Q4H PRN PRN Reason: Pain, Moderate (4-6) Last Admin: 03/10/19 00:30 Dose: 2 mg Documented by: Ondansetron HCl (Zofran) 4 mg IV Q8H PRN PRN Reason: Nausea And Vomiting Sodium Chloride (Sodium Chloride Flush Syringe 10 Ml) 10 ml IV BID [facility] Last Admin: 03/09/19 22:12 Dose: 10 ml Documented by: Sodium Chloride (Sodium Chloride Flush Syringe 10 Ml) 10 ml IV PRN PRN PRN Reason: LINE FLUSH Spironolactone (Aldactone) 25 mg PO QDAY [facility] Last Admin: 03/09/19 09:51 Dose: 25 mg Documented by: Review of Systems All systems: negative Exam - Constitutional Vitals: Temp Pulse Resp BP Pulse Ox 97.9 F 72 18 120/71 98 03/10/19 08:02 03/10/19 08:05 03/10/19 08:02 03/10/19 08:02 03/10/19 08:02 General appearance: Present: no acute distress, obese - EENT Eyes: Present: EOM intact ENT: hearing intact - Neck Neck: Present: supple, normal ROM - Respiratory Respiratory effort: normal - Extremities Extremities: abnormal (bilateral lower extremity edema, right arm and hand edema.) - Abdominal General gastrointestinal: Present: deferred - Rectal Rectal Exam: deferred - Psychiatric Psychiatric: appropriate mood/affect, cooperative Results - Labs CBC & Chem 7: 03/08/19 05:15 03/09/19 Unknown - Imaging and Cardiology US - abdomen: report reviewed Assessment and Plan Patient with initial right upper extremity DVT. She will need to be placed on anticoagulation for 3 months. Patient was counseled on the need to elevate her arm. Prior to discontinuation of her anticoagulation, the patient will need r epeat ultrasound of her right upper arm.
[2019-03-10] MEDS ORDERED: CORDARONE PO SCH (10:30)
[2019-03-10] MEDS: LASIX IV SCH (10:48)
[2019-03-10] MEDS: PEPCID PO SCH (10:49)
[2019-03-10] MEDS: ALDACTONE PO SCH (10:49)
[2019-03-10] MEDS: ZITHROMAX PO SCH (10:49)
[2019-03-10] MEDS: ELIQUIS PO SCH (10:49)
[2019-03-10] MEDS: COREG PO SCH (10:49)
[2019-03-10] MEDS: COZAAR PO SCH (10:49)
[2019-03-10 12:00] VITALS: BP 96/66
--- NOTE | 2019-03-10 12:10 | Progress Note ---
Assessment and Plan OK to DC cardiac-bonilla. - Patient Problems (1) Acute respiratory failure with hypoxemia Current Visit: Yes Status: Acute (2) Atrial flutter with rapid ventricular response Current Visit: Yes Status: Acute (3) Acute on chronic HFrEF (heart failure with reduced ejection fraction) Current Visit: Yes Status: Acute (4) Cardiomyopathy Current Visit: Yes Status: Chronic (5) KURTIS (obstructive sleep apnea) Current Visit: Yes Status: Chronic (6) Obesity hypoventilation syndrome Current Visit: Yes Status: Chronic (7) HTN (hypertension) Current Visit: Yes Status: Chronic Qualifiers: Hypertension type: essential hypertension Qualified Code(s): I10 - Essential (primary) hypertension (8) Morbid obesity Current Visit: Yes Status: Chronic Subjective Date of service: 03/10/19 Principal diagnosis: Atrial Fib/flutter with RVR; COPD; AcuteCHF exacerbation; KURTIS/OHS Interval history: No complaint. In Aflutter with CVR. Objective Vital Signs Temp Pulse Pulse Resp BP Pulse Ox 03/10/19 11:58 98.0 F 77 20 96/66 93 03/10/19 09:20 20 03/10/19 08:05 72 03/10/19 08:02 97.9 F 79 18 120/71 98 03/10/19 04:32 98.3 F 76 18 142/78 100 03/10/19 02:30 80 24 95 03/10/19 00:29 76 03/09/19 23:42 98.2 F 76 18 129/89 97 03/09/19 22:00 70 70 20 03/09/19 19:36 98.0 F 75 18 95/72 91 03/09/19 19:32 92 03/09/19 17:11 98.0 F 35 L 20 113/67 85 03/09/19 14:21 66 20 03/09/19 13:06 98.2 F 90 20 122/70 93 - Physical Examination General: No Apparent Distress HEENT: Positive: EOMI, Normocephaly, Mucus Membranes Moist Neck: Positive: neck supple, trachea midline Cardiac: Positive: Irregularly Regular Lungs: Positive: clear to auscultation Neuro: Positive: Grossly Intact Abdomen: Positive: Soft, Active Bowel Sounds. Negative: Tender Skin: Negative: Rash Musculoskeletal: Normal Range of Motion Extremities: Present: +1 Edema (pitting bilateral leg edema) - Labs and Meds Comprehensive Metabolic Panel 03/09/19 Range/Units 20:01 Potassium 3.8 (3.6-5.0) mmol/L - Imaging and Cardiology EKG: report reviewed, image reviewed Echo: report reviewed (EF 15-20%, RV mildly diated, RA mildly dilated, mild to mod TR, RVSP 34mmHg, trivial pericardial effusion, increased RA pressure. ) - Telemetry EKG Rhythm: Atrial Flutter (with CVR) - Allied health notes Allied health notes reviewed: nursing
[2019-03-10 13:02] LABS: BUN/Creatinine Ratio 21; Blood Urea Nitrogen 23 mg/dL (7-17); Calcium 8.6 mg/dL (8.4-10.2); Hemolysis Index 33
--- NOTE | 2019-03-10 13:03 | Progress Note ---
Assessment and Plan Acute Hypoxemic Respiratory Failure on NIPPV Atrial Fib/flutter with RVR Acute CHF exacerbation (New Onset HFrEF) KURTIS/OHS Extreme Obesity Hyperglycemia HTN Left pleural effusion - continue supplemental oxygen as needed to keep O2 sat's > 90% - continue IV heparin drip for anticoagulation re: A-fib - continue Amiodarone for rate & rhythm control - continue BIPAP scheduled qhs with prn daytime use - continue diuresis with furosemide (currently 40 mg IV bid) -Monitor renal function and hemodynamics closely while on diuretic therapy - conservative management for effusion, follow up CXR to document resolution - optimize heart failure measures per cardiology team (on ARB, aldactone, metoprolol) -Transthoracic echocardiogram to evaluate LVEF and for pulmonary HTN - weight loss and lifestyle modifications counselled, may benefit from evaluation for surgical weight loss - follow electrolytes and correct as necessary - VTE prophylaxis -Mobility for pressure ulcer prevention - Schneider catheter in this extremely obese patient with need fro accurate intake and output monitoring. Will re-assess ongoing need for schneider catheter in nevin morning - flu and pneumovax addressed per protocol CONDITION: CRITICAL PROGNOSIS: GUARDED CODE STATUS: FULL CODE The high probability of a clinically significant, sudden or life-threatening deterioration of the cardiac, respiratory systems required my full and direct attention, intervention and personal management. The aggregate critical care time was [45] minutes without overlap. Time includes spent on; [x] Data Review and interpretation [x] Patient assessment and monitoring of vital signs [x] Documentation [x] Medication orders and management Subjective Date of service: 03/10/19 Principal diagnosis: Atrial Fib/flutter with RVR; COPD; AcuteCHF exacerbation; KURTIS/OHS Interval history: Patient is seen today for: Atrial Fib/flutter with RVR; COPD; AcuteCHF exacerbat ion (New Onset HFrEF); KURTIS/OHS Seen and examined at bedside; 24hour events reviewed; nursing and respiratory care staff consulted; no adverse overnight events reported to me; resting peacefully in bed; feels better; tolerating BIPAP well so far; denies acute chest pains or palpitations; remains on amiodarone drip as well as I.V. heparin; No N/V/F/C; orthopnea is better Objective Vital Signs - 12hr 03/10/19 03/10/19 03/10/19 02:30 04:32 08:02 Temperature 98.3 F 97.9 F Pulse Rate 80 76 79 Respiratory 24 18 18 Rate Blood Pressure 142/78 120/71 O2 Sat by Pulse 95 100 98 Oximetry 03/10/19 03/10/19 03/10/19 08:05 09:20 11:58 Temperature 98.0 F Pulse Rate 72 77 Respiratory 20 20 Rate Blood Pressure 96/66 O2 Sat by Pulse 93 Oximetry Constitutional: appears uncomfortable, other (middle aged morbidly obese AAF, normocephalic and atraumatic with incresaed resp effort at rest) Eyes: non-icteric ENT: oropharynx moist, other (Mallampati 4) Neck: supple, no lymphadenopathy, no JVD, other (large neck circumference) Effort: mildly labored Ascultation: Bilateral: clear, diminished breath sounds Percussion: Bilateral: not dull Cardiovascular: irregular rhythm, other (No R/M) Gastrointestinal: normoactive bowel sounds, soft, non-tender, non-distended Integumentary: rash (stasis dermatitis to lower extremities) Extremities: no cyanosis, pulses normal, no ischemia or petechiae, edema (1+) Neurologic: normal mental status, non-focal exam, pupils equal and round, motor strength normal and Psychiatric: mood appropriate, affect normal CBC and BMP: 03/08/19 05:15 03/10/19 12:13 ABG, PT/INR, D-dimer: ABG POC ABG pH 7.368 (7.35-7.45) 03/01/19 09:46 POC ABG pCO2 43.1 (35-45) 03/01/19 09:46 POC ABG pO2 95 (80-105) 03/01/19 09:46 POC ABG HCO3 24.8 (22-26 mml/L) 03/01/19 09:46 POC ABG Total CO2 26 (23-27mmol/L) 03/01/19 09:46 POC ABG O2 Sat 97 03/01/19 09:46 PT/INR, D-dimer PT 16.9 Sec. (12.2-14.9) H 02/28/19 13:12 INR 1.41 (0.87-1.13) H 02/28/19 13:12 7368.96 ng/mlDDU (0-234) H 02/28/19 13:15 Abnormal lab findings: Abnormal Labs 02/28/19 02/28/19 02/28/19 13:12 13:12 13:12 RBC 5.36 H Hgb 16.3 H Hct 51.3 H RDW 15.6 H Lymph % (Auto) [place] % (Auto) Lymph # [place] # Seg Neutrophils % 78.2 H Seg Neutrophils # 8.4 H PT 16.9 H INR 1.41 H APTT 24.0 L D-Dimer Heparin Anti-Xa Level Potassium Chloride Carbon Dioxide 17 L BUN 18 H Glucose 195 H POC Glucose Calcium Magnesium Total Bilirubin 1.60 H Alkaline Phosphatase 167 H NT-Pro-B Natriuret Pep 3618 H Albumin 3.7 L 02/28/19 03/01/19 03/01/19 13:15 05:26 05:26 RBC Hgb 14.5 H Hct 44.7 H D RDW Lymph % (Auto) [place] % (Auto) 9.0 H Lymph # [place] # 0.9 H Seg Neutrophils % 72.4 H Seg Neutrophils # PT INR APTT D-Dimer 7368.96 H Heparin Anti-Xa Level Potassium Chloride Carbon Dioxide BUN 18 H Glucose 118 H POC Glucose Calcium Magnesium Total Bilirubin Alkaline Phosphatase NT-Pro-B Natriuret Pep Albumin 2.8 L 03/01/19 03/01/19 03/02/19 13:11 21:51 11:36 RBC Hgb Hct RDW Lymph % (Auto) [place] % (Auto) Lymph # [place] # Seg Neutrophils % Seg Neutrophils # PT INR APTT D-Dimer Heparin Anti-Xa Level < 0.10 L 0.97 H Potassium Chloride Carbon Dioxide BUN Glucose POC Glucose 149 H Calcium Magnesium Total Bilirubin Alkaline Phosphatase NT-Pro-B Natriuret Pep Albumin 03/02/19 03/02/19 03/02/19 12:00 12:00 17:56 RBC Hgb 14.9 H Hct 45.9 H RDW Lymph % (Auto) [place] % (Auto) Lymph # [place] # Seg Neutrophils % Seg Neutrophils # PT INR APTT D-Dimer Heparin Anti-Xa Level 0.11 L Potassium Chloride Carbon Dioxide BUN Glucose POC Glucose 140 H Calcium Magnesium Total Bilirubin Alkaline Phosphatase NT-Pro-B Natriuret Pep Albumin 03/02/19 03/03/19 03/03/19 22:02 20:37 22:22 RBC Hgb Hct RDW Lymph % (Auto) [place] % (Auto) Lymph # [place] # Seg Neutrophils % Seg Neutrophils # PT INR APTT D-Dimer Heparin Anti-Xa Level 0.26 L Potassium Chloride Carbon Dioxide BUN Glucose POC Glucose 124 H 117 H Calcium Magnesium Total Bilirubin Alkaline Phosphatase NT-Pro-B Natriuret Pep Albumin 03/04/19 03/04/19 03/04/19 04:24 04:24 12:53 RBC Hgb 15.3 H Hct 47.8 H RDW Lymph % (Auto) [place] % (Auto) Lymph # [place] # Seg Neutrophils % Seg Neutrophils # PT INR APTT D-Dimer Heparin Anti-Xa Level Potassium Chloride Carbon Dioxide BUN Glucose 109 H POC Glucose 122 H Calcium Magnesium Total Bilirubin Alkaline Phosphatase NT-Pro-B Natriuret Pep Albumin 03/04/19 03/05/19 03/05/19 17:20 07:46 07:56 RBC Hgb Hct RDW Lymph % (Auto) [place] % (Auto) Lymph # [place] # Seg Neutrophils % Seg Neutrophils # PT INR APTT D-Dimer Heparin Anti-Xa Level < 0.10 L Potassium Chloride Carbon Dioxide BUN Glucose POC Glucose 120 H 124 H Calcium Magnesium Total Bilirubin Alkaline Phosphatase NT-Pro-B Natriuret Pep Albumin 03/05/19 03/05/19 03/06/19 11:15 20:30 06:05 RBC Hgb 14.5 H Hct 44.4 H RDW Lymph % (Auto) [place] % (Auto) Lymph # [place] # Seg Neutrophils % Seg Neutrophils # PT INR APTT D-Dimer Heparin Anti-Xa Level < 0.10 L Potassium Chloride Carbon Dioxide BUN Glucose POC Glucose 118 H Calcium Magnesium Total Bilirubin Alkaline Phosphatase NT-Pro-B Natriuret Pep Albumin 03/06/19 03/06/19 03/06/19 06:05 06:05 08:00 RBC Hgb Hct RDW Lymph % (Auto) [place] % (Auto) Lymph # [place] # Seg Neutrophils % Seg Neutrophils # PT INR APTT D-Dimer Heparin Anti-Xa Level 1.62 H 1.52 H Potassium 2.9 L* D Chloride 97.2 L Carbon Dioxide 31 H BUN Glucose POC Glucose Calcium Magnesium Total Bilirubin Alkaline Phosphatase NT-Pro-B Natriuret Pep Albumin 03/06/19 03/06/19 03/07/19 16:46 17:15 00:30 RBC Hgb Hct RDW Lymph % (Auto) [place] % (Auto) Lymph # [place] # Seg Neutrophils % Seg Neutrophils # PT INR APTT D-Dimer Heparin Anti-Xa Level < 0.10 L 0.94 H Potassium Chloride Carbon Dioxide BUN Glucose POC Glucose 131 H Calcium Magnesium Total Bilirubin Alkaline Phosphatase NT-Pro-B Natriuret Pep Albumin 03/07/19 03/07/19 03/07/19 06:05 06:05 16:00 RBC Hgb 15.1 H Hct 46.5 H RDW Lymph % (Auto) 12.5 L [place] % (Auto) 9.9 H Lymph # 1.1 L [place] # Seg Neutrophils % 75.8 H Seg Neutrophils # PT INR APTT D-Dimer Heparin Anti-Xa Level Potassium 3.0 L 3.3 L Chloride 97.6 L Carbon Dioxide 32 H BUN Glucose 108 H 152 H POC Glucose Calcium 8.3 L Magnesium 1.60 L Total Bilirubin Alkaline Phosphatase NT-Pro-B Natriuret Pep Albumin 03/08/19 03/09/19 03/10/19 05:15 Unknown 12:13 RBC Hgb Hct RDW Lymph % (Auto) [place] % (Auto) Lymph # [place] # Seg Neutrophils % Seg Neutrophils # PT INR APTT D-Dimer Heparin Anti-Xa Level Potassium 3.4 L 3.4 L Chloride Carbon Dioxide 32 H BUN 23 H Glucose 189 H POC Glucose Calcium Magnesium Total Bilirubin Alkaline Phosphatase NT-Pro-B Natriuret Pep Albumin Allied health notes reviewed: nursing
--- NOTE | 2019-03-12 17:29 | Event Note ---
Date: 03/10/19 Patient seen and examined today. Stable to dc to Acute rehab today.
== END 2019-03-10 18:25 | DRG 291 ==
LOC: ED 12:57 → 4A 17:01 → CC1 23:41 → 4A 03-02 22:05
PROVIDERS: ADMIT Internal Medicine; ATTEND Internal Medicine
PROC: 4A033R1 Measurement of Arterial Saturation, Peripheral, Percutaneous Approach (ICD-10-PCS; principal; 2019-03-01)
PROC: 5A09357 Assistance with Respiratory Ventilation, Less than 24 Consecutive Hours, Continuous Positive Airway Pressure (ICD-10-PCS; 2019-03-01)
PROC: 5A09357 Assistance with Respiratory Ventilation, Less than 24 Consecutive Hours, Continuous Positive Airway Pressure (ICD-10-PCS; 2019-03-02)
PROC: 5A09357 Assistance with Respiratory Ventilation, Less than 24 Consecutive Hours, Continuous Positive Airway Pressure (ICD-10-PCS; 2019-03-03)
PROC: 5A09357 Assistance with Respiratory Ventilation, Less than 24 Consecutive Hours, Continuous Positive Airway Pressure (ICD-10-PCS; 2019-03-04)
PROC: 05HY33Z Insertion of Infusion Device into Upper Vein, Percutaneous Approach (ICD-10-PCS; 2019-03-04)
PROC: 5A09357 Assistance with Respiratory Ventilation, Less than 24 Consecutive Hours, Continuous Positive Airway Pressure (ICD-10-PCS; 2019-03-06)
PROC: 5A09357 Assistance with Respiratory Ventilation, Less than 24 Consecutive Hours, Continuous Positive Airway Pressure (ICD-10-PCS; 2019-03-08)
PROC: 5A09357 Assistance with Respiratory Ventilation, Less than 24 Consecutive Hours, Continuous Positive Airway Pressure (ICD-10-PCS; 2019-03-09)
PROC: 5A09357 Assistance with Respiratory Ventilation, Less than 24 Consecutive Hours, Continuous Positive Airway Pressure (ICD-10-PCS; 2019-03-10)
DX: I11.0 Hypertensive heart disease with heart failure (principal); J96.01 Acute respiratory failure with hypoxia; E66.2 Morbid (severe) obesity with alveolar hypoventilation; I48.92 Unspecified atrial flutter; Z68.45 Body mass index [BMI] 70 or greater, adult; I82.C11 Acute embolism and thrombosis of right internal jugular vein; I82.B11 Acute embolism and thrombosis of right subclavian vein; I82.A11 Acute embolism and thrombosis of right axillary vein; I50.23 Acute on chronic systolic (congestive) heart failure; I89.0 Lymphedema, not elsewhere classified; M19.90 Unspecified osteoarthritis, unspecified site; J44.9 Chronic obstructive pulmonary disease, unspecified; I48.91 Unspecified atrial fibrillation; I42.9 Cardiomyopathy, unspecified; E87.6 Hypokalemia; R73.9 Hyperglycemia, unspecified; Z82.49 Family history of ischemic heart disease and other diseases of the circulatory system; Z91.14 Patient's other noncompliance with medication regimen; Z83.3 Family history of diabetes mellitus
CPT/HCPCS: 36415; 36600; 71045; 80048; 80053; 81001; 82803; 82962; 83735; 83880; 84132; 84439; 84443; 84484; 85014; 85018; 85025; 85049; 85379; 85520; 85610; 85730; 93005; 93010; 93306; 94660; 94760; G0378; J0282; J0456; J1644; J1940; J2270; J3475; J7050; J7060

== ENCOUNTER 2019-05-23 21:03 | Emergency (ER) | payer OTHER ==
--- NOTE | 2019-05-23 22:31 | Emergency Department Report ---
- General Chief complaint: Skin Rash Stated complaint: CELLULITIS Time Seen by Provider: 05/23/19 22:12 Source: patient, old records reviewed Mode of arrival: Stretcher Limitations: No Limitations - History of Present Illness Initial comments: Mrs. Louise is a 54 yo female with hx of CHF, severe obesity, immobility, hypothyroidism, atrial fibrillation, DVT who presents with worsening right lower extremity rash and swelling. She has been treated at [facility] for 7 days. She has LUE PICC line. She is receiving vancomycin and rocephin. She denies fever, shortness of breath, chest pain. She has small ulcer in the lower skin fold. She stated also was caused by a lift machine. Further information obtained history and physical performed today according to physician Dr. Pino. She has been on vancomycin and Rocephin. According to documentation, the condition is improviing. However, physician documented concern for necrotizing fasciitis and requested CT to determine the "actual state" According to EMR, Mrs. Louise has DVT in right IJ, subclavia and axillary vein. MD complaint: rash -: Gradual, week(s) (1) Location: RLE Severity: mild Consistency: constant Improves with: medication Worsens with: none Context: new medication, recent illness Associated symptoms: denies other symptoms Treatments Prior to Arrival: none - Related Data Previous Rx's Medication Instructions Recorded Last Taken Type Apixaban [Eliquis] 5 mg PO Q12HR #60 tablet 03/09/19 Unknown Rx Carvedilol [Coreg] 25 mg PO BID #60 tablet 03/09/19 Unknown Rx Famotidine [Pepcid] 20 mg PO QDAY #60 tablet 03/09/19 Unknown Rx Losartan [Cozaar] 12.5 mg PO QDAY #30 tablet 03/09/19 Unknown Rx Spironolactone [Aldactone] 25 mg PO QDAY #30 tablet 03/09/19 Unknown Rx Amiodarone [Cordarone 200 MG TAB] 200 mg PO BID #60 tablet 03/10/19 Unknown Rx dilTIAZem CD [Cardizem Cd] 180 mg PO QDAY #30 cap 03/10/19 Unknown Rx Allergies Allergy/AdvReac Type Severity Reaction Status Date / Time No Known Allergies Allergy Unverified 05/12/17 09:15 Abscess Boil HPI - HPI Chief Complaint: Skin Rash Stated Complaint: CELLULITIS Time Seen by Provider: 05/23/19 22:12 Home Medications: Previous Rx's Medication Instructions Recorded Last Taken Type Apixaban [Eliquis] 5 mg PO Q12HR #60 tablet 03/09/19 Unknown Rx Carvedilol [Coreg] 25 mg PO BID #60 tablet 03/09/19 Unknown Rx Famotidine [Pepcid] 20 mg PO QDAY #60 tablet 03/09/19 Unknown Rx Losartan [Cozaar] 12.5 mg PO QDAY #30 tablet 03/09/19 Unknown Rx Spironolactone [Aldactone] 25 mg PO QDAY #30 tablet 03/09/19 Unknown Rx Amiodarone [Cordarone 200 MG TAB] 200 mg PO BID #60 tablet 03/10/19 Unknown Rx dilTIAZem CD [Cardizem Cd] 180 mg PO QDAY #30 cap 03/10/19 Unknown Rx Allergies/Adverse Reactions: Allergies Allergy/AdvReac Type Severity Reaction Status Date / Time No Known Allergies Allergy Unverified 05/12/17 09:15 ED Review of Systems ROS: Stated complaint: CELLULITIS Other details as noted in HPI Comment: All other systems reviewed and negative Constitutional: denies: fever, malaise Respiratory: denies: cough, shortness of breath Skin: rash, lesions, other (skin ulcer at the skin fold) ED Past Medical Hx - Past Medical History Hx Hypertension: Yes Hx Deep Vein Thrombosis: No Hx Asthma: Yes Additional medical history: Knee pain, headache pain - Surgical History Hx Pacemaker: No Hx Internal Defibrillator: No Additional Surgical History: Fibroids removed, right fingers surgery - Social History Smoking Status: Never Smoker - Medications Home Medications: Home Medications Medication Instructions Recorded Confirmed Last Taken Type Apixaban [Eliquis] 5 mg PO Q12HR #60 tablet 03/09/19 Unknown Rx Carvedilol [Coreg] 25 mg PO BID #60 tablet 03/09/19 Unknown Rx Famotidine [Pepcid] 20 mg PO QDAY #60 tablet 03/09/19 Unknown Rx Losartan [Cozaar] 12.5 mg PO QDAY #30 tablet 03/09/19 Unknown Rx Spironolactone [Aldactone] 25 mg PO QDAY #30 tablet 03/09/19 Unknown Rx Amiodarone [Cordarone 200 MG TAB] 200 mg PO BID #60 tablet 03/10/19 Unknown Rx dilTIAZem CD [Cardizem Cd] 180 mg PO QDAY #30 cap 03/10/19 Unknown Rx ED Physical Exam - General Limitations: No Limitations General appearance: alert, in no apparent distress, obese, other (awake alert no acute distress severely obese) - Head Head exam: Present: atraumatic, normocephalic - Eye Eye exam: Present: normal appearance - ENT ENT exam: Present: mucous membranes moist - Neck Neck exam: Present: normal inspection, full ROM - Respiratory Respiratory exam: Present: normal lung sounds bilaterally. Absent: respiratory distress, wheezes, rales, rhonchi - Cardiovascular Cardiovascular Exam: Present: regular rate, normal rhythm, normal heart sounds. Absent: systolic murmur, diastolic murmur, rubs, gallop - GI/Abdominal GI/Abdominal exam: Present: soft. Absent: distended, tenderness, guarding, rebound - Extremities Exam Extremities exam: Present: other (right lower extremity: Lymphedema in the medial portions of lower extremity without erythema +indurated skin with edema and pockets of flesh and subcutaneous tissue flesh colored skin, no tenderness, small 3 cm x 1 cm ulcer with purulence or erythema at the distal skin fold) - Neurological Exam Neurological exam: Present: alert, oriented X3 - Psychiatric Psychiatric exam: Present: normal affect, normal mood - Skin Skin exam: Present: warm, dry, normal color. Absent: rash ED Course Vital Signs 05/23/19 05/23/19 21:39 22:46 Temperature 98.3 F Pulse Rate 80 Respiratory 16 18 Rate Blood Pressure 145/93 O2 Sat by Pulse 98 98 Oximetry ED Medical Decision Making - Lab Data Result diagrams: 05/23/19 22:40 05/23/19 22:40 - Radiology Data Radiology results: report reviewed X-ray of the right tibia-fibula according to radiology report showed marked soft tissue swelling and skin thickening of the medial portion of the right lower leg subcutaneous tissue edema US RLE reviewed edema without fluid collection or abscess - Medical Decision Making Mrs. Louise presents with developing/worsening lymphedema. Induration/edema is located to the medial portion of the extremities. Normal skin on the left lower extremity. Swelling is not circumferential as would be expected with severe cellulitis or dependent lower extremity edema due to CHF. Due to localized swelling I do not suspect DVT. She is on Eliquis for upper extremity and neck DVT on right, as well as atrial fibrillation. I do not suspect cellulitis or necrotizing fasciitis. Radiographs obtained confirm impression of tissue edema. No indication of subcutaneous gas. She is discharged to return to rehab. Critical care attestation.: If time is entered above; I have spent that time in minutes in the direct care of this critically ill patient, excluding procedure time. ED Disposition Clinical Impression: Lymphedema of right lower extremity, Severe obesity Disposition: DC/TX-70 ANOTHER TYPE HLTHCARE Is pt being admited?: No Does the pt Need Aspirin: No Condition: Stable Additional Instructions: Diagnosis: lymphedema Normal WBC 5.9, radiographs and ultrasound without evidence of necrotizing fasciitis
[2019-05-23 22:50] LABS: Basophils # (Auto) 0.1 K/mm3 (0.0-0.1); Basophils % (Auto) 1.9 % (0.0-1.8); Eosinophils # (Auto) 0.2 K/mm3 (0.0-0.4); Eosinophils % (Auto) 3.8 % (0.0-4.3); Hematocrit 38.1 % (30.3-42.9); Hemoglobin 12.8 gm/dl (10.1-14.3); Lymphocytes # (Auto) 1.7 K/mm3 (1.2-5.4); Lymphocytes % (Auto) 28.5 % (13.4-35.0); Mean Corpuscular HGB Conc 34 % (30-34); Mean Corpuscular Volume 92 fl (79-97); Monocytes # (Auto) 0.5 K/mm3 (0.0-0.8); Monocytes % (Auto) 7.6 % (0.0-7.3); Platelet Count 217 K/mm3 (140-440); Red Blood Count 4.15 M/mm3 (3.65-5.03); Red Cell Distribution Width 14.4 % (13.2-15.2)
[2019-05-23 23:16] LABS: Calcium 9.3 mg/dL (8.4-10.2)
--- NOTE | 2019-05-23 23:27 | XRay Report ---
RIGHT TIBIA-FIBULA 2 VIEW(S) INDICATION / CLINICAL INFORMATION: skin infection From [facility] for increasing cellulitic infection to R leg. Started on vancomycin for 7 days without improvement. At rehab due to decreased mobility related to extreme o besity and CHF. COMPARISON: 02/28/19 FINDINGS: BONES / JOINT(S): No acute fracture or subluxation. Moderate right knee degenerative arthrosis. SOFT TISSUES: There is marked soft tissue swelling and skin thickening of the medial portion of the r ight lower leg. There is mild to moderate diffuse subcutaneous soft tissue edema throughout the right lower leg. ADDITIONAL FINDINGS: None. Signer Name: Nell Selby MD Signed: 05/23/2019 11:22 PM Workstation Name: [id number]
--- NOTE | 2019-05-24 01:20 | Ultrasound Report ---
ULTRASOUND RIGHT LOWER EXTREMITY, SOFT TISSUE INDICATION / CLINICAL INFORMATION: cellulitis lymphedema concern for deep infection. COMPARISON: Radiograph obtained 05/23/19 FINDINGS: Moderate subcutaneous soft tissue edema within the right lower extremity from the thigh to the calf. No discrete soft tissue fluid collection or abscess identified. Signer Name: Nell Selby MD Signed: 05/24/2019 1:16 AM Workstation Name: [id number]
[2019-05-24] MEDS ORDERED: ALTEPLASE 2 MG INJ IV ONE (03:22)
[2019-05-24 11:39] VITALS: BP 133/82
== END 2019-05-24 13:25 | disposition other institution (70) ==
LOC: ED 21:03
DX: I89.8 Other specified noninfective disorders of lymphatic vessels and lymph nodes (principal); E66.01 Morbid (severe) obesity due to excess calories; Z68.45 Body mass index [BMI] 70 or greater, adult; I48.91 Unspecified atrial fibrillation; I11.0 Hypertensive heart disease with heart failure; I50.9 Heart failure, unspecified; J45.909 Unspecified asthma, uncomplicated; Z86.718 Personal history of other venous thrombosis and embolism; Z79.899 Other long term (current) drug therapy
CPT/HCPCS: 36415; 73590; 76882; 80048; 85025; 96374; 99284; J2997

== ENCOUNTER 2020-05-27 15:29 | Inpatient (IN) | payer OTHER ==
--- NOTE | 2020-05-27 17:04 | Emergency Department Report ---
ED Extremity Problem HPI - General Chief complaint: Wound/Laceration Stated complaint: OPEN WOUND/BED SORES Time Seen by Provider: 05/27/20 15:59 Source: patient, EMS Mode of arrival: Stretcher Limitations: Physical Limitation - History of Present Illness Initial comments: 55-year-old female, history of hypertension, morbid obesity, CHF, presents to ED with complaint of open wound to right leg. Patient states that wound care nurse has been caring for this wound for approximately 1 month. Patient states it has gotten worse over the last 2 weeks with increased bleeding, drainage, foul smell. Patient denies any fever, chills, nausea or vomiting. She reports she has not been on any antibiotics for this wound. Patient also reports that she had very mild chest pain that is currently resolved. She denies shortness of breath. However, her main complaint and reason for presenting to the ED is due to the wound on her leg. Patient reports she is 500+ pounds. MD Complaint: other -: month(s) (1) Location: right, lower extremity -: No fever Severity scale (0 -10): 0 Consistency: constant Improves with: nothing Worsens with: nothing Associated Symptoms: denies: fever - Related Data Previous Rx's Medication Instructions Recorded Last Taken Type Apixaban [Eliquis] 5 mg PO Q12HR #60 tablet 03/09/19 Unknown Rx Famotidine [Pepcid] 20 mg PO QDAY #60 tablet 03/09/19 Unknown Rx Losartan [Cozaar] 12.5 mg PO QDAY #30 tablet 03/09/19 Unknown Rx Spironolactone [Aldactone] 25 mg PO QDAY #30 tablet 03/09/19 Unknown Rx carvediloL [Coreg] 25 mg PO BID #60 tablet 03/09/19 Unknown Rx Amiodarone [Cordarone 200 MG TAB] 200 mg PO BID #60 tablet 03/10/19 Unknown Rx dilTIAZem CD [Cardizem Cd] 180 mg PO QDAY #30 cap 03/10/19 Unknown Rx Allergies Allergy/AdvReac Type Severity Reaction Status Date / Time No Known Allergies Allergy Unverified 05/12/17 09:15 ED Review of Systems ROS: Stated complaint: OPEN WOUND/BED SORES Other details as noted in HPI Comment: All other systems reviewed and negative Constitutional: denies: chills, fever Cardiovascular: chest pain Gastrointestinal: denies: nausea, vomiting Musculoskeletal: as per HPI ED Past Medical Hx - Past Medical History Hx Hypertension: Yes Hx Deep Vein Thrombosis: No Hx Asthma: Yes Additional medical history: Knee pain, headache pain - Surgical History Hx Pacemaker: No Hx Internal Defibrillator: No Additional Surgical History: Fibroids removed, right fingers surgery - Social History Smoking Status: Never Smoker - Medications Home Medications: Home Medications Medication Instructions Recorded Confirmed Last Taken Type Apixaban [Eliquis] 5 mg PO Q12HR #60 tablet 03/09/19 05/27/20 Unknown Rx Famotidine [Pepcid] 20 mg PO QDAY #60 tablet 03/09/19 05/27/20 Unknown Rx Losartan [Cozaar] 12.5 mg PO QDAY #30 tablet 03/09/19 05/27/20 Unknown Rx Spironolactone [Aldactone] 25 mg PO QDAY #30 tablet 03/09/19 05/27/20 Unknown Rx carvediloL [Coreg] 25 mg PO BID #60 tablet 03/09/19 05/27/20 Unknown Rx Amiodarone [Cordarone 200 MG TAB] 200 mg PO BID #60 tablet 03/10/19 05/27/20 Unknown Rx dilTIAZem CD [Cardizem Cd] 180 mg PO QDAY #30 cap 03/10/19 05/27/20 Unknown Rx ED Physical Exam - General Limitations: Physical Limitation General appearance: alert, in no apparent distress, obese - Head Head exam: Present: atraumatic, normocephalic - Eye Eye exam: Present: normal appearance - ENT ENT exam: Present: mucous membranes moist - Neck Neck exam: Present: normal inspection - Respiratory Respiratory exam: Present: normal lung sounds bilaterally. Absent: respiratory distress - Cardiovascular Cardiovascular Exam: Present: regular rate, normal rhythm - GI/Abdominal GI/Abdominal exam: Present: soft. Absent: distended, tenderness - Extremities Exam Extremities exam: Present: other (lymphedema present in lower extremities, induration present in upper medial thigh with large open wound, foul-smelling, purulent discharge present) - Neurological Exam Neurological exam: Present: alert, oriented X3 - Psychiatric Psychiatric exam: Present: normal affect, normal mood ED Course Vital Signs 05/27/20 05/27/20 05/27/20 15:33 15:41 15:45 Temperature 98.0 F Pulse Rate 67 64 Respiratory 20 21 Rate Blood Pressure 107/56 Blood Pressure 107/56 [Right] O2 Sat by Pulse 93 98 98 Oximetry 05/27/20 05/27/20 05/27/20 16:01 16:15 16:31 Temperature Pulse Rate 71 67 67 Respiratory 16 18 15 Rate Blood Pressure 107/56 107/56 107/56 Blood Pressure [Right] O2 Sat by Pulse 96 100 93 Oximetry 05/27/20 05/27/20 05/27/20 16:45 17:01 17:15 Temperature Pulse Rate 66 66 67 Respiratory 19 15 13 Rate Blood Pressure 107/56 107/56 107/56 Blood Pressure [Right] O2 Sat by Pulse 100 100 100 Oximetry 05/27/20 05/27/20 05/27/20 17:31 17:45 18:01 Temperature Pulse Rate 68 77 72 Respiratory 17 17 21 Rate Blood Pressure 109/36 109/36 109/36 Blood Pressure [Right] O2 Sat by Pulse 85 100 100 Oximetry 05/27/20 05/27/20 05/27/20 18:15 18:31 18:45 Temperature Pulse Rate 69 68 70 Respiratory 20 18 20 Rate Blood Pressure 99/48 99/48 99/48 Blood Pressure [Right] O2 Sat by Pulse 100 100 100 Oximetry 05/27/20 05/27/20 05/27/20 19:01 19:15 19:31 Temperature Pulse Rate 70 69 69 Respiratory 22 19 21 Rate Blood Pressure 99/48 71/41 71/41 Blood Pressure [Right] O2 Sat by Pulse 100 100 100 Oximetry 05/27/20 05/27/20 19:45 20:01 Temperature Pulse Rate 70 71 Respiratory 19 23 Rate Blood Pressure 71/41 71/41 Blood Pressure [Right] O2 Sat by Pulse 100 100 Oximetry - Consultations Consultation #1: 05/27/20 18:04 Discussed case w/ Dr Aguirre. Will see and consult on pt. ED Medical Decision Making - Lab Data Result diagrams: 05/27/20 16:45 05/27/20 16:45 - EKG Data -: EKG Interpreted by Tx EKG shows normal: sinus rhythm, axis, intervals, QRS complexes, ST-T waves Rate: normal - EKG Data Interpretation: no acute changes - Radiology Data Radiology results: report reviewed, image reviewed - Medical Decision Making 55-year-old morbidly obese female with open wound and surrounding cellulitis of right thigh. Patient is afebrile, vitals are stable. WBCs very mildly elevated at 11.9, lactic acid is normal. Blood cultures drawn, vancomycin and cefepime given. Spoke with surgeon space operations who agrees to consult on patient. Patient also reported some transient chest pain as well. EKG and troponin are both negative. Patient will be admitted by hospitalist, Dr. Diaz, for further evaluation. - Differential Diagnosis Cellulitis, open wound, ACS Critical care attestation.: If time is entered above; I have spent that time in minutes in the direct care of this critically ill patient, excluding procedure time. ED Disposition Clinical Impression: Open wound of right thigh, Cellulitis of right thigh Disposition: -09 OP ADMIT IP TO THIS HOSP Is pt being admited?: Yes Condition: Stable Time of Disposition: 19:07
--- NOTE | 2020-05-27 17:14 | XRay Report ---
CHEST 1 VIEW 05/27/2020 4:23 PM INDICATION / CLINICAL INFORMATION: chest pain. COMPARISON: Chest one view from 03/04/2019. FINDINGS: SUPPORT DEVICES: None. HEART / MEDIASTINUM: No significant abnormality. LUNGS / PLEURA: No significant pulmonary or pleural abnormality. No pneumothorax. ADDITIONAL FINDINGS: No significant additional findings. IMPRESSION: 1. No acute abnormality of the chest. Signer Name: Jr Nieto MD Signed: 05/27/2020 5:09 PM Workstation Name: [id number]
[2020-05-27 17:19] LABS: Basophils # (Auto) 0.2 K/mm3 (0.0-0.1); Basophils % (Auto) 2.1 % (0.0-1.8); Eosinophils # (Auto) 0.2 K/mm3 (0.0-0.4); Eosinophils % (Auto) 1.5 % (0.0-4.3); Hemoglobin 6.8 gm/dl (10.1-14.3); Lymphocytes % (Auto) 8.8 % (13.4-35.0); Mean Corpuscular HGB Conc 30 % (30-34); Mean Corpuscular Volume 85 fl (79-97); Monocytes # (Auto) 0.7 K/mm3 (0.0-0.8); Monocytes % (Auto) 6.3 % (0.0-7.3); Platelet Count 522 K/mm3 (140-440); Red Blood Count 2.71 M/mm3 (3.65-5.03); Red Cell Distribution Width 19.1 % (13.2-15.2)
[2020-05-27 17:32] LABS: BUN/Creatinine Ratio 19; Blood Urea Nitrogen 21 mg/dL (7-17); Calcium 8.6 mg/dL (8.4-10.2); Hemolysis Index 64
[2020-05-27] MEDS ORDERED: MORPHINE 2 MG/1 ML INJ ONE (17:38)
[2020-05-27] MEDS ORDERED: MORPHINE 2 MG/1 ML INJ IV ONE (17:41)
[2020-05-27] MEDS ORDERED: CEFEPIME/NS 2 GM/100 ML 2 GM/100 ML BAG IV ONE (18:01)
[2020-05-27] MEDS ORDERED: VANCOMYCIN/NS 1 GM/250 ML 1 GM/250 ML BAG IV ONE (18:02)
--- NOTE | 2020-05-27 19:17 | History and Physical Report ---
History of Present Illness Chief complaint: My leg hurts, and it smells bad History of present illness: 55 YO Female with Super MO, Obesity Hypoventilation Syndrome, HTN, KURTIS noncompliant with CPAP, Lymphedema, Debility, OA, COPD, Systolic CHF(EF 15%), Atrial Fib on Therapeutic Anticoatulation, presents to ED for evaluation. Pt states that she has experienced pain, redness, increased drainage, and foul smelling discharge from her right leg wound over the past 2 weeks with persistently worsening symptoms over the past 1 week. EMS was notified and upon arrival the patient was found to be in distress and subsequently transported to [facility] for further care and evaluation. Patient seen and evaluated in the emergenc y department. Lab and imaging studies reviewed. Patient found to have symptoms consistent with right lower extremity cellulitis, systemic inflammatory response syndrome. Patient also reported initial symptoms of chest wall discomfort which resolved prior to transport to [facility]. Patient denies fever, chills, chest pain, palpitations, productive cough, recent ill contacts, or known exposure to COVID- 19. Surgery team consulted in ED. Patient placed in observation status and initiated on IV antibiotic therapy due to increased risk of decompensation. Wound care consult placed in the emergency department. Prior admission on 02/28/2019 reviewed. All medication listed at time of admission has been reconciled. Past History Past Medical History: atrial fib, heart failure, hypertension Past Surgical History: Other (Fibroid removal, right finger surgery) Social history: single. denies: smoking, alcohol abuse, prescription drug abuse Family history: hypertension Medications and Allergies Allergies Allergy/AdvReac Type Severity Reaction Status Date / Time No Known Allergies Allergy Unverified 05/12/17 09:15 Home Medications Medication Instructions Recorded Confirmed Last Taken Type Apixaban [Eliquis] 5 mg PO Q12HR #60 tablet 03/09/19 Unknown Rx Famotidine [Pepcid] 20 mg PO QDAY #60 tablet 03/09/19 Unknown Rx Losartan [Cozaar] 12.5 mg PO QDAY #30 tablet 03/09/19 Unknown Rx Spironolactone [Aldactone] 25 mg PO QDAY #30 tablet 03/09/19 Unknown Rx carvediloL [Coreg] 25 mg PO BID #60 tablet 03/09/19 Unknown Rx Amiodarone [Cordarone 200 MG TAB] 200 mg PO BID #60 tablet 03/10/19 Unknown Rx dilTIAZem CD [Cardizem Cd] 180 mg PO QDAY #30 cap 03/10/19 Unknown Rx Active Meds: Active Medications Vancomycin HCl (Vancomycin/Ns 1 Gm/250 Ml) 1 gm in 250 mls @ 167.007 mls/hr IV ONCE ONE; Protocol Stop: 05/27/20 19:31 Review of Systems Constitutional: no weight loss, no weight gain, no fever, no chills Ears, nose, mouth and throat: no ear pain, no ear discharge, no tinnitis, no nose pain, no nasal discharge Breasts: no change in shape, no swelling, no mass Cardiovascular: no chest pain, no orthopnea, no palpitations, no rapid/irregular heart beat, no edema Respiratory: no cough, no excessive sputum, no shortness of breath Gastrointestinal: no nausea, no vomiting, no diarrhea Genitourinary Female: no pelvic pain, no flank pain, no dysuria, no urinary frequency, no urgency Rectal: no pain, no incontinence, no bleeding Musculoskeletal: no neck pain, no shooting arm pain, no shooting leg pain Integumentary: other (Erythema, foul smelling discharge) Neurological: no transient paralysis, no paralysis, no weakness Psychiatric: no anxiety, no memory loss, no change in sleep habits, no sleep disturbances, no insomnia, no hypersomnia, no change in appetite Endocrine: no cold intolerance, no polyphagia, no excessive thirst, no polydipsia, no polyuria Hematologic/Lymphatic: no easy bruising, no easy bleeding Allergic/Immunologic: no urticaria, no allergic rhinitis, no wheezing Exam - Constitutional Vitals: Temp Pulse Resp BP Pulse Ox 98.0 F 67 20 107/56 98 05/27/20 15:41 05/27/20 15:41 05/27/20 15:41 05/27/20 15:41 05/27/20 15:41 General appearance: Present: mild distress, obese - EENT Eyes: Present: PERRL ENT: hearing intact, clear oral mucosa - Neck Neck: Present: supple, normal ROM - Respiratory Respiratory effort: normal Respiratory: bilateral: CTA - Cardiovascular Heart Sounds: Present: S1 & S2. Absent: rub, click - Extremities Extremities: pulses symmetrical, No edema Extremity abnormal: ulceration, other (Lymphedema) Peripheral Pulses: within normal limits - Abdominal General gastrointestinal: Present: soft, non-tender, non-distended, normal bowel sounds Female genitourinary: Present: normal - Integumentary Integumentary: Present: clear, warm, dry - Musculoskeletal Musculoskeletal: gait normal, strength equal bilaterally - Psychiatric Psychiatric: appropriate mood/affect, intact judgment & insight - Neurologic Neurologic: CNII-XII intact, moves all extremities HEART Score - HEART Score Troponin: Troponin T < 0.010 ng/mL (0.00-0.029) 05/27/20 16:45 Results - Labs CBC & Chem 7: 05/27/20 16:45 05/27/20 16:45 Labs: Abnormal lab results 05/27/20 05/27/20 Range/Units 16:45 16:45 WBC 11.9 H (4.5-11.0) K/mm3 RBC 2.71 L (3.65-5.03) M/mm3 Hgb 6.8 L (10.1-14.3) gm/dl Hct 23.0 L (30.3-42.9) % MCH 25 L (28-32) pg RDW 19.1 H (13.2-15.2) % Plt Count 522 H (140-440) K/mm3 Lymph % (Auto) 8.8 L (13.4-35.0) % Baso % (Auto) 2.1 H (0.0-1.8) % Lymph # (Auto) 1.0 L (1.2-5.4) K/mm3 Baso # (Auto) 0.2 H (0.0-0.1) K/mm3 Seg Neutrophils % 81.3 H (40.0-70.0) % Seg Neutrophils # 9.7 H (1.8-7.7) K/mm3 Sodium 135 L (137-145) mmol/L BUN 21 H (7-17) mg/dL Glucose 118 H (65-100) mg/dL Assessment and Plan - Patient Problems (1) Cellulitis Current Visit: Yes Status: Acute Qualifiers: Site of cellulitis of extremity: lower extremity Laterality: right Plan to address problem: CBC, CMP, IV antibiotic therapy, wound care consulted. Surgery team consulted. (2) Systemic inflammatory response syndrome Current Visit: Yes Status: Acute Plan to address problem: CBC, CMP, urinalysis, IV antibiotic therapy, suspected secondary cellulitis, supportive care. Wound care consulted (3) Atrial fibrillation Current Visit: Yes Status: Acute Plan to address problem: To continue therapeutic anticoagulation, supportive care, rate control, continue prehospital medication. (4) CHF (congestive heart failure) Current Visit: Yes Status: Acute Qualifiers: Heart failure type: systolic Heart failure chronicity: chronic Qualified Code(s): I50.22 - Chronic systolic (congestive) heart failure Plan to address problem: Strict I's/O, monitor urine output every shift, daily weight, afterload reduction, continue medical management. No acute decompensation at this time (5) Obesity hypoventilation syndrome Current Visit: Yes Status: Acute Plan to address problem: Supplemental oxygen, pulse oximetry, nebulizer therapy, noninvasive positive pressure ventilation as clinically indicated, pulmonary toilet, out of bed to chair 3 times daily and as needed (6) HTN (hypertension) Current Visit: No Status: Chronic Qualifiers: Hypertension type: essential hypertension Qualified Code(s): I10 - Essential (primary) hypertension Plan to address problem: Monitor blood pressure every shift, continue medical management. (7) DVT prophylaxis Current Visit: Yes Status: Acute Plan to address problem: continue therapeutic anticoagulation.
[2020-05-27] MEDS ORDERED: ACETAMINOPHEN 325 MG TAB PO PRN (19:19)
[2020-05-27] MEDS ORDERED: ONDANSETRON 4 MG/2 ML INJ IV PRN (19:19)
[2020-05-27] MEDS ORDERED: VANCOMYCIN PHARMACY TO DOSE IV SCH (20:00)
[2020-05-27] MEDS: VANCOMYCIN 2,000 MG in SODIUM CHLORIDE 0.9% 500 ML 500 ML IV SCH (22:00)
[2020-05-28] MEDS ORDERED: MORPHINE 2 MG/1 ML INJ IV ONE (00:25)
[2020-05-28] MEDS: VANCOMYCIN 2,000 MG in SODIUM CHLORIDE 0.9% 500 ML 500 ML IV SCH ×2 (08:00→20:45)
--- NOTE | 2020-05-28 08:01 | Progress Note ---
Assessment and Plan Assessment and plan: --Systemic inflammatory response syndrome Current Visit: Yes Status: Acute Plan to address problem: CBC, CMP, urinalysis, IV antibiotic therapy, suspected secondary cellulitis, supportive care. Wound care consulted --Multiple pressure ulcers; Current Visit: Yes Status: Acute . Plan to address problem: IV antibiotics Vanco Zosyn, wound care, follow cultures Surgery evaluation noted and appreciated Possible surgical debridement if needed Nutrition consult --Anemia: Hb 6.8 Current Visit: Yes Status: Acute . Plan to address problem: Type and screen, transfuse 2 units of PRBC stat Monitor H&H and transfuse additional as needed -- Cellulitis/multiple decubitus/pressure ulcers Current Visit: Yes Status: Acute Plan to address problem: Continue IV antibiotic therapy, wound care Surgery consulted.for Possible surgical debridement. --Severe protein calorie malnutrition/hypoalbuminemia Current Visit: Yes Status: Acute Plan to address problem: nutrition supplements, nutrition consult --Atrial fibrillation Current Visit: Yes Status: Acute Plan to address problem: Continue current cardiac medications, Surgery, stopped Eliquis pending surgical debridement Closely monitor -- CHF (congestive heart failure) 15 to 20% Current Visit: Yes Status: Acute Plan to address problem: Strict I's/O, monitor urine output every shift, daily weight, afterload reduction, continue medical management. No acute decompensation at this time --Morbid obesity; BMI 92.0 Current Visit: No Status: Chronic Plan to address problem: -- Obesity hypoventilation syndrome Current Visit: Yes Status: Acute Plan to address problem: Supplemental oxygen, pulse oximetry, nebulizer therapy, noninvasive positive pressure ventilation as clinically indicated, pulmonary toilet, out of bed to chair 3 times daily and as needed --HTN (hypertension) Current Visit: No Status: Chronic Plan to address problem: Monitor blood pressure every shift, continue medical management. --DVT prophylaxis Current Visit: Yes Status: Acute Plan to address problem: Eliquis on hold per surgery, pending surgical debridement SCDs bilateral Closely monitor the patient and adjust the management as needed Discussed with , surgeon Plan of care reviewed with the patient and her nurse History Interval history: I have seen and examined the patient at the bedside Patient's chart and medications reviewed Patient is morbidly obese BMI of 92 With multiple decubitus ulcers Patient feels slightly better No new complaints Vital signs noted Hospitalist Physical - Constitutional Vitals: Temp Pulse Resp BP Pulse Ox 97.6 F 82 20 114/56 100 05/28/20 00:54 05/28/20 00:54 05/28/20 01:03 05/28/20 00:54 05/28/20 00:54 General appearance: Present: mild distress, well-nourished, obese - EENT Eyes: Present: PERRL, EOM intact - Neck Neck: Present: supple, normal ROM - Respiratory Respiratory effort: normal Respiratory: bilateral: diminished, rhonchi, negative: rales, wheezing - Cardiovascular Rhythm: regular Heart Sounds: Present: S1 & S2 - Extremities Extremities: no ischemia, abnormal (Multiple decubitus ulcers[due to prolonged immobility]) Extremity abnormal: edema - Abdominal General gastrointestinal: soft, non-tender, non-distended, normal bowel sounds, other (Obese) - Integumentary Integumentary: Present: clear, warm - Psychiatric Psychiatric: appropriate mood/affect, cooperative - Neurologic Neurologic: moves all extremities HEART Score - HEART Score Troponin: Troponin T < 0.010 ng/mL (0.00-0.029) 05/27/20 23:39 Results - Labs CBC & Chem 7: 05/27/20 16:45 05/27/20 16:45 Labs: Laboratory Last Values WBC 11.9 K/mm3 (4.5-11.0) H 05/27/20 16:45 RBC 2.71 M/mm3 (3.65-5.03) L 05/27/20 16:45 Hgb 6.8 gm/dl (10.1-14.3) L 05/27/20 16:45 Hct 23.0 % (30.3-42.9) L 05/27/20 16:45 MCV 85 fl (79-97) 05/27/20 16:45 MCH 25 pg (28-32) L 05/27/20 16:45 MCHC 30 % (30-34) 05/27/20 16:45 RDW 19.1 % (13.2-15.2) H 05/27/20 16:45 Plt Count 522 K/mm3 (140-440) H 05/27/20 16:45 Lymph % (Auto) 8.8 % (13.4-35.0) L 05/27/20 16:45 [place] % (Auto) 6.3 % (0.0-7.3) 05/27/20 16:45 Eos % (Auto) 1.5 % (0.0-4.3) 05/27/20 16:45 Baso % (Auto) 2.1 % (0.0-1.8) H 05/27/20 16:45 Lymph # (Auto) 1.0 K/mm3 (1.2-5.4) L 05/27/20 16:45 [place] # (Auto) 0.7 K/mm3 (0.0-0.8) 05/27/20 16:45 Eos # (Auto) 0.2 K/mm3 (0.0-0.4) 05/27/20 16:45 Baso # (Auto) 0.2 K/mm3 (0.0-0.1) H 05/27/20 16:45 Seg Neutrophils % 81.3 % (40.0-70.0) H 05/27/20 16:45 Seg Neutrophils # 9.7 K/mm3 (1.8-7.7) H 05/27/20 16:45 Sodium 135 mmol/L (137-145) L 05/27/20 16:45 Potassium 4.9 mmol/L (3.6-5.0) 05/27/20 16:45 Chloride 98.4 mmol/L (98-107) 05/27/20 16:45 Carbon Dioxide 27 mmol/L (22-30) 05/27/20 16:45 Anion Gap 15 mmol/L 05/27/20 16:45 BUN 21 mg/dL (7-17) H 05/27/20 16:45 Creatinine 1.1 mg/dL (0.6-1.2) 05/27/20 16:45 Estimated GFR > 60 ml/min 05/27/20 16:45 BUN/Creatinine Ratio 19 % 05/27/20 16:45 Glucose 118 mg/dL (65-100) H 05/27/20 16:45 Lactic Acid 1.70 mmol/L (0.7-2.0) 05/27/20 17:48 Calcium 8.6 mg/dL (8.4-10.2) 05/27/20 16:45 Troponin T < 0.010 ng/mL (0.00-0.029) 05/27/20 23:39 Microbiology: Microbiology 05/27/20 17:48 Peripheral/Venous Blood Culture - Preliminary Culture in Progress 05/27/20 17:48 Peripheral/Venous Blood Culture - Preliminary Culture in Progress Zamora/IV: Voiding Method External Female Catheter IV Catheter Type [Right INT / Saline Lock Forearm] Active Medications - Current Medications Current Medications: Generic Name Dose Route Start Last Admin Trade Name Freq PRN Reason Stop Dose Admin Acetaminophen 650 mg 05/27/20 19:19 Tylenol PO Q4H PRN Pain MILD(1-3)/Fever >100.5/TAYLOR Vancomycin HCl 2,000 mg/ 540 mls @ 250 mls/hr 05/27/20 20:00 05/27/20 22:00 Sodium Chloride IV 250 mls/hr Q12H SULAIMAN Administration Ondansetron HCl 4 mg 05/27/20 19:19 Zofran IV Q8H PRN Nausea And Vomiting Sodium Chloride 10 ml 05/27/20 22:00 05/27/20 23:28 Sodium Chloride Flush Syringe 10 Ml IV 10 ml BID SULAIMAN Administration Sodium Chloride 10 ml 05/27/20 19:19 Sodium Chloride Flush Syringe 10 Ml IV PRN PRN LINE FLUSH
--- NOTE | 2020-05-28 09:44 | Consultation ---
History of Present Illness Consult date: 05/28/20 Chief complaint: Wound - History of present illness History of present illness: 55-year-old female with a past medical history of morbid obesity, immobility, atrial fibrillation on Eliquis, CHF who presents to the emergency room with increased bleeding and drainage from a chronic right medial thigh wound. The patient states that the wound is been present for over 1 month but over the last 3 weeks it has started to get worse. She is seen by wound care nurse twice a week in her home and states that they have tried various dressings to help improve the wound. Most recently they were using meta honey for topical debridement. She states that the area is moderately painful and has been draining more than usual. The drainage is a mixture of blood and clear yellow fluid. She denies fevers or chills, chest pain, shortness of breath, nausea, vomiting, abdominal pain. She states that she has been bedbound for the last 1 year. She states that she has been eating fruits and vegetables but no protein. Last year, the patient was sent to the hospital by her PCP for concerns about infection in the right medial thigh. At that time her white blood cell count was normal and an ultrasound of the area in question showed severe edema but no drainable fluid collection. Patient states that there was no wound present at that time but just redness of the overlying skin. Past History Past Medical History: atrial fib, heart failure, hypertension Past Surgical History: Other (Fibroid removal, right finger surgery) Social history: single, lives with family (With daughter). denies: smoking, alcohol abuse, prescription drug abuse Family history: hypertension Medications and Allergies Allergies Allergy/AdvReac Type Severity Reaction Status Date / Time No Known Allergies Allergy Unverified 05/12/17 09:15 Home Medications Medication Instructions Recorded Confirmed Last Taken Type Apixaban [Eliquis] 5 mg PO Q12HR #60 tablet 03/09/19 05/27/20 Unknown Rx Famotidine [Pepcid] 20 mg PO QDAY #60 tablet 03/09/19 05/27/20 Unknown Rx Losartan [Cozaar] 12.5 mg PO QDAY #30 tablet 03/09/19 05/27/20 Unknown Rx Spironolactone [Aldactone] 25 mg PO QDAY #30 tablet 03/09/19 05/27/20 Unknown Rx carvediloL [Coreg] 25 mg PO BID #60 tablet 03/09/19 05/27/20 Unknown Rx Amiodarone [Cordarone 200 MG TAB] 200 mg PO BID #60 tablet 03/10/19 05/27/20 Unknown Rx dilTIAZem CD [Cardizem Cd] 180 mg PO QDAY #30 cap 03/10/19 05/27/20 Unknown Rx Active Meds: Active Medications Acetaminophen (Tylenol) 650 mg PO Q4H PRN PRN Reason: Pain MILD(1-3)/Fever >100.5/TAYLOR Vancomycin HCl 2,000 mg/ (Sodium Chloride) 540 mls @ 250 mls/hr IV Q12H [facility] Last Admin: 05/28/20 08:00 Dose: 250 mls/hr Documented by: Ondansetron HCl (Zofran) 4 mg IV Q8H PRN PRN Reason: Nausea And Vomiting Sodium Chloride (Sodium Chloride Flush Syringe 10 Ml) 10 ml IV BID [facility] Last Admin: 05/28/20 09:03 Dose: 10 ml Documented by: Sodium Chloride (Sodium Chloride Flush Syringe 10 Ml) 10 ml IV PRN PRN PRN Reason: LINE FLUSH Sodium Hypochlorite (Dakin's Half Strength) 1 applic TP BID [facility] Review of Systems All systems: negative (10 point ROS performed and negative except for that listed in HPI) Exam Vital Signs Pulse Ox 93 05/27/20 15:33 Narrative exam: Gen.: Awake, alert, oriented 3. No apparent distress ENT: Trachea midline. No lymphadenopathy. No scleral icterus or conjunctival pallor CV: S1, S2 present Respiratory: No audible wheezes Abdomen: Soft, nondistended, nontender, morbidly obese. No rebound, rigidity, guarding Extremities: Lymphedema of right leg with chronic skin changes reflecting venous stasis. The dressing was removed and had fibrinous exudate as well as greenish discoloration. There is a 13 x 16 x 2 cm wound of the right medial thigh with 70% of the wound bed covered with thick adherent slough. There is no undermining or tunneling. There is a mild odor and moderate serous drainage. Periwound skin is mildly indurated without evidence of fluctuance. The wound bed was cleansed with wound cleanser and packed with 2 pieces of Kerlix moistened with Dakins solution This was covered by 4 x 4 gauze and ABD pads. Results - Labs 05/27/20 16:45 05/27/20 16:45 Abnormal lab results 05/27/20 05/27/20 Range/Units 16:45 16:45 WBC 11.9 H (4.5-11.0) K/mm3 RBC 2.71 L (3.65-5.03) M/mm3 Hgb 6.8 L (10.1-14.3) gm/dl Hct 23.0 L (30.3-42.9) % MCH 25 L (28-32) pg RDW 19.1 H (13.2-15.2) % Plt Count 522 H (140-440) K/mm3 Lymph % (Auto) 8.8 L (13.4-35.0) % Baso % (Auto) 2.1 H (0.0-1.8) % Lymph # (Auto) 1.0 L (1.2-5.4) K/mm3 Baso # (Auto) 0.2 H (0.0-0.1) K/mm3 Seg Neutrophils % 81.3 H (40.0-70.0) % Seg Neutrophils # 9.7 H (1.8-7.7) K/mm3 Sodium 135 L (137-145) mmol/L BUN 21 H (7-17) mg/dL Glucose 118 H (65-100) mg/dL Diabetes panel 05/27/20 Range/Units 16:45 Sodium 135 L (137-145) mmol/L Potassium 4.9 (3.6-5.0) mmol/L Chloride 98.4 (98-107) mmol/L Carbon Dioxide 27 (22-30) mmol/L BUN 21 H (7-17) mg/dL Creatinine 1.1 (0.6-1.2) mg/dL Glucose 118 H (65-100) mg/dL Calcium 8.6 (8.4-10.2) mg/dL Calcium panel 05/27/20 Range/Units 16:45 Calcium 8.6 (8.4-10.2) mg/dL Pituitary panel 05/27/20 Range/Units 16:45 Sodium 135 L (137-145) mmol/L Potassium 4.9 (3.6-5.0) mmol/L Chloride 98.4 (98-107) mmol/L Carbon Dioxide 27 (22-30) mmol/L BUN 21 H (7-17) mg/dL Creatinine 1.1 (0.6-1.2) mg/dL Glucose 118 H (65-100) mg/dL Calcium 8.6 (8.4-10.2) mg/dL Adrenal panel 05/27/20 Range/Units 16:45 Sodium 135 L (137-145) mmol/L Potassium 4.9 (3.6-5.0) mmol/L Chloride 98.4 (98-107) mmol/L Carbon Dioxide 27 (22-30) mmol/L BUN 21 H (7-17) mg/dL Creatinine 1.1 (0.6-1.2) mg/dL Glucose 118 H (65-100) mg/dL Calcium 8.6 (8.4-10.2) mg/dL Assessment and Plan 55 yo F with 1. infected right medial thigh wound 2. RLE lymphedema 3. morbid obesity BMI 92 4. immobility/bedbound 5. Afib on eliquis 6. CHF EF 15% Plan: 1. stock buyer consulted. Start dakins packing to wound - BID dressing changes ordered 2. wound cultures obtained 3. abx - vanco, zosyn IV 4. prn pain control 5. DVT ppx, hold eliquis for possible debridement 6. fork truck operator consult. Cardiac diet with protein supplements 7. prealbumin/albumin 8. type and screen, transfuse per 1' team Discussed plan with patient. This is will be a very challenging wound to heal due to patient's immobility, severe lymphedema, morbid obesity. At this time, will hold on surgical debridement as patient is on eliquis and already anemic, with high risk of bleeding from wound if sharp debridement is performed. D/W Dr. Carrasco Thank you for this consultation. Please call with any questions or concerns. Evaluation and treatment of this patient was during the time of the national and state emergency arising from COVID19 coronavirus pandemic. Treatment and procedures performed meet the current and available best practice and guidelines for patient during the COVID pandemic.
[2020-05-28] MEDS: SODIUM HYPOCHLORITE, DAKIN'S 1/2 STRENGTH (0.25%) 473 ML TOPICAL SOLN TP SCH ×2 (10:00→22:02)
[2020-05-28 11:28] LABS: INR 1.3 (0.87-1.13)
[2020-05-28 11:38] LABS: Albumin 2.2 g/dL (3.9-5)
[2020-05-28 12:05] LABS: Prealbumin 0.064 g/L (0.200-0.400)
[2020-05-28] MEDS: oxyCODONE /ACETAMINOPHEN 5-325MG TAB PO PRN (14:11)
[2020-05-28] MEDS ORDERED: SODIUM CHLORIDE 0.9% 500 ML 500 ML IV ONE (16:19)
[2020-05-28] MEDS: PIPERACIL/TAZOBACTA 4.5/NS 100 4.5 GM/100 ML VIAL IV SCH (19:36)
[2020-05-28 19:48] LABS: Basophils # (Auto) 0.1 K/mm3 (0.0-0.1); Basophils % (Auto) 1.1 % (0.0-1.8); Eosinophils # (Auto) 0.4 K/mm3 (0.0-0.4); Eosinophils % (Auto) 3.6 % (0.0-4.3); Lymphocytes # (Auto) 1.1 K/mm3 (1.2-5.4); Lymphocytes % (Auto) 10.3 % (13.4-35.0); Mean Corpuscular HGB Conc 32 % (30-34); Mean Corpuscular Volume 81 fl (79-97); Monocytes % (Auto) 9.1 % (0.0-7.3); Platelet Count 413 K/mm3 (140-440); Red Blood Count 2.14 M/mm3 (3.65-5.03); Red Cell Distribution Width 19.2 % (13.2-15.2)
[2020-05-28 19:57] LABS: Hemoglobin 5.6 gm/dl (10.1-14.3)
[2020-05-28 19:58] LABS: Hematocrit 17.2 % (30.3-42.9)
[2020-05-28 20:02] LABS: BUN/Creatinine Ratio 17; Blood Urea Nitrogen 19 mg/dL (7-17); Calcium 8.2 mg/dL (8.4-10.2); Hemolysis Index 0
[2020-05-28] MEDS ORDERED: PIPERACIL-TAZO 2.25 GM/50 ML 2.25 GM/50 ML BAG IV SCH (22:00)
[2020-05-29] MEDS: PIPERACIL/TAZOBACTA 4.5/NS 100 4.5 GM/100 ML VIAL IV SCH ×3 (00:01→12:37)
[2020-05-29] MEDS: oxyCODONE /ACETAMINOPHEN 5-325MG TAB PO PRN (00:09)
[2020-05-29] MEDS ORDERED: SODIUM CHLORIDE 0.9% 500 ML 500 ML IV ONE (00:15)
[2020-05-29] MEDS ORDERED: SODIUM CHLORIDE 0.9% 500 ML 500 ML IV NR (09:44)
--- NOTE | 2020-05-29 09:44 | Progress Note ---
Assessment and Plan Assessment and plan: --Severe anemia: Hb 6.8-5.6 Current Visit: Yes Status: Acute . Plan to address problem: No external evidence of bleeding , check stool for occult blood GI consult if needed Received 1 unit PRBC , transfuse second unit PRBC stat Request 2 units additional PRBC as patient's hemoglobin is 5.6 Monitor H&H and transfuse additional as needed --Multiple pressure ulcers; Current Visit: Yes Status: Acute . Plan to address problem: IV antibiotics Vanco Zosyn, wound care, follow cultures Surgery evaluation noted and appreciated Possible surgical debridement if needed Nutrition consult --Systemic inflammatory response syndrome Current Visit: Yes Status: Acute Plan to address problem: CBC, CMP, urinalysis, IV antibiotic therapy, suspected secondary cellulitis, supportive care. Wound care consulted -- Cellulitis/multiple decubitus/pressure ulcers Current Visit: Yes Status: Acute Plan to address problem: Continue IV antibiotic therapy, wound care Surgery consulted.for Possible surgical debridement. --Severe protein calorie malnutrition/hypoalbuminemia Current Visit: Yes Status: Acute Plan to address problem: nutrition supplements, nutrition consult --Atrial fibrillation Current Visit: Yes Status: Acute Plan to address problem: Continue current cardiac medications, Surgery, stopped Eliquis pending surgical debridement Closely monitor -- CHF (congestive heart failure) 15 to 20% Current Visit: Yes Status: Acute Plan to address problem: Strict I's/O, monitor urine output every shift, daily weight, afterload reduction, continue medical management. No acute decompensation at this time --Morbid obesity; BMI 92.0 Current Visit: No Status: Chronic Plan to address problem: -- Obesity hypoventilation syndrome Current Visit: Yes Status: Acute Plan to address problem: Supplemental oxygen, pulse oximetry, nebulizer therapy, noninvasive positive pressure ventilation as clinically indicated, pulmonary toilet, out of bed to chair 3 times daily and as needed --HTN (hypertension) Current Visit: No Status: Chronic Plan to address problem: Monitor blood pressure every shift, continue medical management. --DVT prophylaxis Current Visit: Yes Status: Acute Plan to address problem: Eliquis on hold per surgery, pending surgical debridement SCDs bilateral Closely monitor the patient and adjust the management as needed Discussed with , surgeon Plan of care reviewed with the patient and her nurse History Interval history: I have seen and examined the patient at the bedside this morning Patient's chart tests and reports current medications reviewed Patient has severe drop in H&H today hemoglobin of 5.9 No external evidence of bleeding Morbidly obese, mild distress Vital signs reviewed Hospitalist Physical - Constitutional Vitals: Temp Pulse Resp BP Pulse Ox 98.2 F 68 19 96/49 96 05/29/20 06:30 05/29/20 06:30 05/29/20 06:30 05/29/20 06:30 05/29/20 08:28 General appearance: Present: mild distress, well-nourished, obese (Morbidly) - EENT Eyes: Present: PERRL, EOM intact - Neck Neck: Present: supple, normal ROM - Respiratory Respiratory effort: normal Respiratory: bilateral: diminished, rhonchi, negative: rales, wheezing - Cardiovascular Rhythm: regular Heart Sounds: Present: S1 & S2 - Extremities Extremities: no ischemia Extremity abnormal: edema - Abdominal General gastrointestinal: soft, non-tender, non-distended, normal bowel sounds - Integumentary Integumentary: Present: clear, warm - Psychiatric Psychiatric: appropriate mood/affect, cooperative - Neurologic Neurologic: moves all extremities HEART Score - HEART Score Troponin: Troponin T < 0.010 ng/mL (0.00-0.029) 05/27/20 23:39 Results - Labs CBC & Chem 7: 05/29/20 08:07 05/29/20 08:07 Labs: Laboratory Last Values WBC 10.9 K/mm3 (4.5-11.0) 05/28/20 19:13 RBC 2.14 M/mm3 (3.65-5.03) L 05/28/20 19:13 Hgb 5.6 gm/dl (10.1-14.3) L* 05/28/20 19:13 Hct 17.2 % (30.3-42.9) L* 05/28/20 19:13 MCV 81 fl (79-97) 05/28/20 19:13 MCH 26 pg (28-32) L 05/28/20 19:13 MCHC 32 % (30-34) 05/28/20 19:13 RDW 19.2 % (13.2-15.2) H 05/28/20 19:13 Plt Count 413 K/mm3 (140-440) 05/28/20 19:13 Lymph % (Auto) 10.3 % (13.4-35.0) L 05/28/20 19:13 [place] % (Auto) 9.1 % (0.0-7.3) H 05/28/20 19:13 Eos % (Auto) 3.6 % (0.0-4.3) 05/28/20 19:13 Baso % (Auto) 1.1 % (0.0-1.8) 05/28/20 19:13 Lymph # (Auto) 1.1 K/mm3 (1.2-5.4) L 05/28/20 19:13 [place] # (Auto) 1.0 K/mm3 (0.0-0.8) H 05/28/20 19:13 Eos # (Auto) 0.4 K/mm3 (0.0-0.4) 05/28/20 19:13 Baso # (Auto) 0.1 K/mm3 (0.0-0.1) 05/28/20 19:13 Seg Neutrophils % 75.9 % (40.0-70.0) H 05/28/20 19:13 Seg Neutrophils # 8.3 K/mm3 (1.8-7.7) H 05/28/20 19:13 PT 16.5 Sec. (12.2-14.9) H 05/28/20 08:38 INR 1.30 (0.87-1.13) H 05/28/20 08:38 Sodium 139 mmol/L (137-145) 05/28/20 19:35 Potassium 4.4 mmol/L (3.6-5.0) 05/28/20 19:35 Chloride 100.1 mmol/L (98-107) 05/28/20 19:35 Carbon Dioxide 25 mmol/L (22-30) 05/28/20 19:35 Anion Gap 18 mmol/L 05/28/20 19:35 BUN 19 mg/dL (7-17) H 05/28/20 19:35 Creatinine 1.1 mg/dL (0.6-1.2) 05/28/20 19:35 Estimated GFR > 60 ml/min 05/28/20 19:35 BUN/Creatinine Ratio 17 % 05/28/20 19:35 Glucose 142 mg/dL (65-100) H 05/28/20 19:35 Lactic Acid 1.70 mmol/L (0.7-2.0) 05/27/20 17:48 Calcium 8.2 mg/dL (8.4-10.2) L 05/28/20 19:35 Troponin T < 0.010 ng/mL (0.00-0.029) 05/27/20 23:39 Albumin 2.2 g/dL (3.9-5) L 05/28/20 10:05 Prealbumin 0.064 g/L (0.200-0.400) L 05/28/20 10:05 Blood Type AB POSITIVE 05/28/20 11:00 Antibody Screen Negative 05/28/20 11:00 Crossmatch See Detail 05/28/20 11:00 Microbiology: Microbiology 05/27/20 17:48 Peripheral/Venous Blood Culture - Preliminary NO GROWTH AFTER 24 HOURS 05/27/20 17:48 Peripheral/Venous Blood Culture - Preliminary NO GROWTH AFTER 24 HOURS Zamora/IV: Voiding Method Incontinent IV Catheter Type [Right INT / Saline Lock Forearm] Active Medications - Current Medications Current Medications: Generic Name Dose Route Start Last Admin Trade Name Freq PRN Reason Stop Dose Admin Acetaminophen 650 mg 05/27/20 19:19 Tylenol PO Q4H PRN Pain MILD(1-3)/Fever >100.5/TAYLOR Vancomycin HCl 2,000 mg/ 540 mls @ 250 mls/hr 05/27/20 20:00 05/28/20 20:45 Sodium Chloride IV 250 mls/hr Q12H SULAIMAN Administration Piperacillin Sod/Tazobactam Sod 4.5 gm in 100 mls @ 100 mls/hr 05/28/20 18:00 05/29/20 06:44 Zosyn/Ns 4.5gm/100ml IV 100 mls/hr Q6HR SULAIMAN Administration Ondansetron HCl 4 mg 05/27/20 19:19 Zofran IV Q8H PRN Nausea And Vomiting Oxycodone/Acetaminophen 1 tab 05/28/20 13:35 05/29/20 00:09 Percocet 5/325 PO 1 tab Q6H PRN Administration Pain, Moderate (4-6) Sodium Chloride 10 ml 05/27/20 22:00 05/28/20 22:02 Sodium Chloride Flush Syringe 10 Ml IV 10 ml BID SULAIMAN Administration Sodium Chloride 10 ml 05/27/20 19:19 Sodium Chloride Flush Syringe 10 Ml IV PRN PRN LINE FLUSH Sodium Hypochlorite 1 applic 05/28/20 10:00 05/28/20 22:02 Dakin's Half Strength TP 1 1000units BID SULAIMAN Administration Nutrition/Malnutrition Assess - Dietary Evaluation Nutrition/Malnutrition Findings: Nutrition Notes Start: 05/28/20 10:32 Freq: Status: Active Protocol: Document 05/28/20 10:32 LM (Rec: 05/28/20 10:52 LM [id number]) Nutrition Notes Need for Assessment generated from: MD Order Initial or Follow up Assessment Current Diagnosis COPD,Hypertension,Heart Failure Other Pertinent Diagnosis SIRS, lymphedema, OA, Afib, R leg and R/L buttock wounds Current Diet Cardiac Labs/Tests Reviewed Pertinent Medications Reviewed Height 5 ft 6 in Weight 258.638 kg [place] Body Weight (kg) 59.09 BMI 92.0 Weight Status Morbidly Obese Subjective/Other Information MD consult for diet education on heart healthy diet and protein sources/supplements. Per MD report, pt has been eating only fruits and vegetables and no protein. Pt did not answer phone. Burn Absent Trauma Absent Minimum of two criteria No physical signs of malnutrition #1 Nutrition Diagnosis Increased nutrient needs ( specify in comment below) Comments: Protein Etiology Wound healing As Evidenced by Signs and Symptoms Pt with R leg and R/L buttock wounds Is patient on ventilator? No Is Patient Ambulatory and/or Out of Bed No [facility] 3828.120 Kcal/Kg value to use for calculation 7 Approximate Energy Requirements Using 1810 kcal/Kg Calculation Used for Recommendations Kcal/kg Additional Notes Protein: 74-89g (1.25-1.5g/kg using IBW 59kg) Fluid: 1ml/kcal Nutrition Intervention Change Diet Order: Continue Goal #1 Meet at least 80% of energy and protein needs Goal #2 Wound healing Anticipated Discharge Needs: Cardiac with adequate protein Follow-Up By: 05/30/20 Additional Comments F/U for intakes, ONS needs, diet education
[2020-05-29 09:52] LABS: Basophils # (Auto) 0.1 K/mm3 (0.0-0.1); Basophils % (Auto) 0.9 % (0.0-1.8); Eosinophils # (Auto) 0.3 K/mm3 (0.0-0.4); Eosinophils % (Auto) 3.6 % (0.0-4.3); Hematocrit 20.1 % (30.3-42.9); Hemoglobin 6.3 gm/dl (10.1-14.3); Lymphocytes # (Auto) 1.3 K/mm3 (1.2-5.4); Lymphocytes % (Auto) 14.7 % (13.4-35.0); Mean Corpuscular HGB Conc 32 % (30-34); Mean Corpuscular Volume 83 fl (79-97); Monocytes # (Auto) 0.9 K/mm3 (0.0-0.8); Monocytes % (Auto) 9.7 % (0.0-7.3); Platelet Count 409 K/mm3 (140-440); Red Blood Count 2.43 M/mm3 (3.65-5.03); Red Cell Distribution Width 18.4 % (13.2-15.2)
[2020-05-29] MEDS: VANCOMYCIN 2,000 MG in SODIUM CHLORIDE 0.9% 500 ML 500 ML IV SCH (10:01)
[2020-05-29] MEDS: SODIUM HYPOCHLORITE, DAKIN'S 1/2 STRENGTH (0.25%) 473 ML TOPICAL SOLN TP SCH (10:02)
[2020-05-29 10:08] LABS: Alanine Aminotransferase < 5 units/L (7-56); Albumin 2.2 g/dL (3.9-5); BUN/Creatinine Ratio 16; Blood Urea Nitrogen 18 mg/dL (7-17); Calcium 8.4 mg/dL (8.4-10.2); Hemolysis Index 0
[2020-05-29] MEDS ORDERED: FUROSEMIDE 40 MG/4 ML INJ IV ONE ×2 (13:47→16:30)
--- NOTE | 2020-05-29 14:53 | Progress Note ---
Assessment and Plan 55 yo F with 1. infected right medial thigh wound 2. RLE lymphedema 3. morbid obesity BMI 92 4. immobility/bedbound 5. Afib on eliquis 6. CHF EF 15% 7. Anemia 8. Protein calorie malnutrition -albumin 2.2, prealbumin 0.064 Plan: 1. Daily wound carecontinue Dakins packing to wound - BID dressing changes ordered 2. wound cultures pending 3. abx - vanco, zosyn IV 4. prn pain control 5. DVT ppx, hold eliquis for possible debridement and severe anemia 6. award clerk consulted. Cardiac diet with protein supplements 7. Transfuse per primary service Discussed plan with patient. This is will be a very challenging wound to heal due to patient's immobility, severe lymphedema, morbid obesity. We will hold off on surgical debridement for now until hemoglobin improves. Please call with any questions or concerns. Evaluation and treatment of this patient was during the time of the national and state emergency arising from COVID19 coronavirus pandemic. Treatment and procedures performed meet the current and available best practice and guidelines for patient during the COVID pandemic. Subjective Date of service: 05/29/20 Narrative: Patient seen and examined. No acute complaints. No fevers or chills. Pain is mild and controlled. Objective Vital Signs - 12hr 05/29/20 05/29/20 05/29/20 03:15 03:30 04:00 Temperature 97.9 F 98.1 F 98.0 F Pulse Rate 75 69 77 Respiratory 18 18 19 Rate Blood Pressure 98/55 90/43 92/49 O2 Sat by Pulse 100 99 100 Oximetry 05/29/20 05/29/20 05/29/20 04:30 05:00 05:30 Temperature 97.6 F 98.1 F 98.2 F Pulse Rate 71 67 64 Respiratory 18 18 18 Rate Blood Pressure 89/45 84/40 87/44 O2 Sat by Pulse 100 100 100 Oximetry 05/29/20 05/29/20 05/29/20 05:44 06:00 06:30 Temperature 97.9 F 98.2 F Pulse Rate 68 68 Respiratory 20 19 Rate Blood Pressure 87/44 85/49 96/49 O2 Sat by Pulse 100 100 Oximetry 05/29/20 05/29/20 05/29/20 08:28 11:34 12:37 Temperature 97.9 F Pulse Rate 77 70 Respiratory 20 18 Rate Blood Pressure 106/46 117/54 O2 Sat by Pulse 96 100 100 Oximetry 05/29/20 05/29/20 05/29/20 12:40 12:57 12:58 Temperature 98.1 F 98.2 F Pulse Rate 63 Respiratory 18 Rate Blood Pressure 112/46 O2 Sat by Pulse 98 Oximetry 05/29/20 05/29/20 05/29/20 13:35 13:36 14:02 Temperature 98.1 F 98.1 F Pulse Rate 66 63 Respiratory 18 20 Rate Blood Pressure 91/41 95/45 O2 Sat by Pulse 100 Oximetry 05/29/20 05/29/20 14:44 14:46 Temperature 98.1 F Pulse Rate 63 Respiratory 18 Rate Blood Pressure 97/50 O2 Sat by Pulse Oximetry - General physical appearance Narrative Exam: Gen.: Awake, alert, oriented 3. No apparent distress ENT: Trachea midline. No lymphadenopathy. No scleral icterus or conjunctival pallor CV: S1, S2 present Respiratory: No audible wheezes Extremities: No clubbing, cyanosis. Lymphadenopathy of right lower extremity. Right medial thigh dressing is clean, intact with serous drainage on the po sterior aspect. - Labs 05/29/20 08:07 05/29/20 08:07 Diabetes panel 05/28/20 05/29/20 Range/Units 19:35 08:07 Sodium 139 138 (137-145) mmol/L Potassium 4.4 3.9 (3.6-5.0) mmol/L Chloride 100.1 102.0 (98-107) mmol/L Carbon Dioxide 25 30 (22-30) mmol/L BUN 19 H 18 H (7-17) mg/dL Creatinine 1.1 1.1 (0.6-1.2) mg/dL Glucose 142 H 110 H (65-100) mg/dL Calcium 8.2 L 8.4 (8.4-10.2) mg/dL AST 6 (5-40) units/L ALT < 5 L (7-56) units/L Alkaline Phosphatase 98 (35-129) units/L Total Protein 6.1 L (6.3-8.2) g/dL Albumin 2.2 L (3.9-5) g/dL Calcium panel 05/28/20 05/29/20 Range/Units 19:35 08:07 Calcium 8.2 L 8.4 (8.4-10.2) mg/dL Albumin 2.2 L (3.9-5) g/dL Pituitary panel 05/28/20 05/29/20 Range/Units 19:35 08:07 Sodium 139 138 (137-145) mmol/L Potassium 4.4 3.9 (3.6-5.0) mmol/L Chloride 100.1 102.0 (98-107) mmol/L Carbon Dioxide 25 30 (22-30) mmol/L BUN 19 H 18 H (7-17) mg/dL Creatinine 1.1 1.1 (0.6-1.2) mg/dL Glucose 142 H 110 H (65-100) mg/dL Calcium 8.2 L 8.4 (8.4-10.2) mg/dL Adrenal panel 05/28/20 05/29/20 Range/Units 19:35 08:07 Sodium 139 138 (137-145) mmol/L Potassium 4.4 3.9 (3.6-5.0) mmol/L Chloride 100.1 102.0 (98-107) mmol/L Carbon Dioxide 25 30 (22-30) mmol/L BUN 19 H 18 H (7-17) mg/dL Creatinine 1.1 1.1 (0.6-1.2) mg/dL Glucose 142 H 110 H (65-100) mg/dL Calcium 8.2 L 8.4 (8.4-10.2) mg/dL Total Bilirubin 0.60 (0.1-1.2) mg/dL AST 6 (5-40) units/L ALT < 5 L (7-56) units/L Alkaline Phosphatase 98 (35-129) units/L Total Protein 6.1 L (6.3-8.2) g/dL Albumin 2.2 L (3.9-5) g/dL
[2020-05-30] MEDS ORDERED: FUROSEMIDE 20 MG/2 ML INJ IV ONE (00:36)
[2020-05-30] MEDS: SODIUM HYPOCHLORITE, DAKIN'S 1/2 STRENGTH (0.25%) 473 ML TOPICAL SOLN TP SCH ×3 (00:48→21:14)
[2020-05-30] MEDS: oxyCODONE /ACETAMINOPHEN 5-325MG TAB PO PRN (01:32)
[2020-05-30] MEDS: PIPERACIL/TAZOBACTA 4.5/NS 100 4.5 GM/100 ML VIAL IV SCH ×6 (01:35→22:59)
[2020-05-30 05:39] LABS: Hematocrit 25.9 % (30.3-42.9); Hemoglobin 8.4 gm/dl (10.1-14.3)
[2020-05-30] MEDS: VANCOMYCIN 1,500 MG in SODIUM CHLORIDE 0.9% 500 ML 500 ML IV SCH ×2 (07:38→17:01)
--- NOTE | 2020-05-30 09:33 | Progress Note ---
Assessment and Plan 55 yo F with 1. infected right medial thigh wound 2. RLE lymphedema 3. morbid obesity BMI 92 4. immobility/bedbound 5. Afib on eliquis 6. CHF EF 15% 7. Anemia 8. Protein calorie malnutrition -albumin 2.2, prealbumin 0.064 Plan: 1. Daily wound carecontinue Dakins packing to wound - BID dressing changes ordered 2. wound cultures pending - discussed with micro, prelim will be available tomorrow 3. abx - vanco, zosyn IV, hopefully will be able to transition to PO abx upon dc 4. prn pain control 5. DVT ppx, continue to hold eliquis 6. mailroom supervisor consult noted. Cardiac diet with protein supplements. Explained the importance of protein intake to patient and the impact on wound healing. 7. Plan for bedside debridement in am. 8. Pt already established with [facility]. This is will be a very challenging wound to heal due to patient's immobility, severe lymphedema, morbid obesity. D/W Dr. Carrasco. Please call with any questions or concerns. Evaluation and treatment of this patient was during the time of the national and state emergency arising from COVID19 coronavirus pandemic. Treatment and procedures performed meet the current and available best practice and guidelines for patient during the COVID pandemic. Subjective Date of service: 05/30/20 Narrative: Pt seen and examined. No acute complaints. No f/c, cp, sob. States there is mild pain at the site of the wound which is controlled with pain medication. s/p 4Units PRBC over the last 48 hours. Pt states she has been drinking her protein shakes Objective Vital Signs - 12hr 05/29/20 05/29/20 05/29/20 21:36 22:06 22:36 Temperature 98 F 98.3 F 98 F Pulse Rate 68 71 73 Respiratory 18 18 18 Rate Blood Pressure 101/52 98/50 100/53 O2 Sat by Pulse 100 100 97 Oximetry 05/29/20 05/29/20 05/30/20 23:06 23:36 00:06 Temperature 98 F 98 F 98.3 F Pulse Rate 68 69 73 Respiratory 18 18 18 Rate Blood Pressure 98/52 100/51 98/51 O2 Sat by Pulse 98 98 100 Oximetry 05/30/20 05/30/20 05/30/20 01:32 06:36 08:47 Temperature 97.7 F Pulse Rate 66 Respiratory 18 18 Rate Blood Pressure 119/61 O2 Sat by Pulse 100 99 Oximetry - General physical appearance Narrative Exam: Gen: AAox3. NAD CV: S1, S2+ Resp: even and unlabored Ext: R medial thigh wound with slough at 50% of wound bed. Portions of the wound are overhead cleaner and there is no odor and mild serous drainage. No bleeding. Dressing reapplied. - Labs 05/30/20 04:34 05/29/20 08:07 Diabetes panel 05/29/20 Range/Units 08:07 Sodium 138 (137-145) mmol/L Potassium 3.9 (3.6-5.0) mmol/L Chloride 102.0 (98-107) mmol/L Carbon Dioxide 30 (22-30) mmol/L BUN 18 H (7-17) mg/dL Creatinine 1.1 (0.6-1.2) mg/dL Glucose 110 H (65-100) mg/dL Calcium 8.4 (8.4-10.2) mg/dL AST 6 (5-40) units/L ALT < 5 L (7-56) units/L Alkaline Phosphatase 98 (35-129) units/L Total Protein 6.1 L (6.3-8.2) g/dL Albumin 2.2 L (3.9-5) g/dL Calcium panel 05/29/20 Range/Units 08:07 Calcium 8.4 (8.4-10.2) mg/dL Albumin 2.2 L (3.9-5) g/dL Pituitary panel 05/29/20 Range/Units 08:07 Sodium 138 (137-145) mmol/L Potassium 3.9 (3.6-5.0) mmol/L Chloride 102.0 (98-107) mmol/L Carbon Dioxide 30 (22-30) mmol/L BUN 18 H (7-17) mg/dL Creatinine 1.1 (0.6-1.2) mg/dL Glucose 110 H (65-100) mg/dL Calcium 8.4 (8.4-10.2) mg/dL Adrenal panel 05/29/20 Range/Units 08:07 Sodium 138 (137-145) mmol/L Potassium 3.9 (3.6-5.0) mmol/L Chloride 102.0 (98-107) mmol/L Carbon Dioxide 30 (22-30) mmol/L BUN 18 H (7-17) mg/dL Creatinine 1.1 (0.6-1.2) mg/dL Glucose 110 H (65-100) mg/dL Calcium 8.4 (8.4-10.2) mg/dL Total Bilirubin 0.60 (0.1-1.2) mg/dL AST 6 (5-40) units/L ALT < 5 L (7-56) units/L Alkaline Phosphatase 98 (35-129) units/L Total Protein 6.1 L (6.3-8.2) g/dL Albumin 2.2 L (3.9-5) g/dL
[2020-05-30] MEDS ORDERED: LIDOCAINE (4%) 40 MG/ML TOPICAL SOLN 50 ML BOTTLE TP ONE (10:00)
--- NOTE | 2020-05-30 10:21 | Progress Note ---
Assessment and Plan Assessment and plan: --Severe anemia: Hb 6.8-5.6-8.4 Current Visit: Yes Status: Acute . Plan to address problem: Patient received total 4 units of PRBC Hb improved from 5.6-8.4 Monitor H&H and transfuse additional as needed --Multiple pressure ulcers; Current Visit: Yes Status: Acute . Plan to address problem: IV antibiotics Vanco Zosyn, wound care, follow cultures Possible surgical debridement tomorrow per Dr. Aguirre f/u Outpatient wound clinic upon discharge nutrition consult --Systemic inflammatory response syndrome Current Visit: Yes Status: Acute Plan to address problem: CBC, CMP, urinalysis, IV antibiotic therapy, suspected secondary cellulitis, supportive care. Wound care consulted -- Cellulitis/multiple decubitus/pressure ulcers Current Visit: Yes Status: Acute Plan to address problem: Continue IV antibiotic therapy, wound care Surgery consulted.for Possible surgical debridement. --Severe protein calorie malnutrition/hypoalbuminemia Current Visit: Yes Status: Acute Plan to address problem: nutrition supplements, nutrition consult --Atrial fibrillation Current Visit: Yes Status: Acute Plan to address problem: Continue current cardiac medications, Surgery, stopped Eliquis pending surgical debridement Closely monitor -- CHF (congestive heart failure) 15 to 20% Current Visit: Yes Status: Acute Plan to address problem: Strict I's/O, monitor urine output every shift, daily weight, afterload reduction, continue medical management. No acute decompensation at this time --Morbid obesity; BMI 92.0 Current Visit: No Status: Chronic Plan to address problem: -- Obesity hypoventilation syndrome Current Visit: Yes Status: Acute Plan to address problem: Supplemental oxygen, pulse oximetry, nebulizer therapy, noninvasive positive pressure ventilation as clinically indicated, pulmonary toilet, out of bed to chair 3 times daily and as needed --HTN (hypertension) Current Visit: No Status: Chronic Plan to address problem: Monitor blood pressure every shift, continue medical management. --DVT prophylaxis Current Visit: Yes Status: Acute Plan to address problem: Eliquis on hold per surgery, pending surgical debridement SCDs bilateral Closely monitor the patient and adjust the management as needed Discussed with , surgeon Plan of care reviewed with the patient and her nurse History Interval history: I have seen and examined the patient at the bedside this morning patient's chart and medications reviewed No new complaints Possible surgical debridement tomorrow per surgery Vital signs noted Hospitalist Physical - Constitutional Vitals: Temp Pulse Resp BP Pulse Ox 97.7 F 66 18 119/61 99 05/30/20 06:36 05/30/20 06:36 05/30/20 06:36 05/30/20 06:36 05/30/20 08:47 General appearance: Present: mild distress, well-nourished, obese (Morbidly) - EENT Eyes: Present: PERRL, EOM intact - Neck Neck: Present: supple, normal ROM - Respiratory Respiratory effort: normal Respiratory: bilateral: diminished, rales, negative: rhonchi, wheezing - Cardiovascular Rhythm: regular Heart Sounds: Present: S1 & S2 - Extremities Extremities: no ischemia Extremity abnormal: edema - Abdominal General gastrointestinal: soft, non-tender, non-distended, normal bowel sounds - Integumentary Integumentary: Present: erythema (Multiple decubitus ulcers of different stages) - Psychiatric Psychiatric: appropriate mood/affect, cooperative - Neurologic Neurologic: moves all extremities HEART Score - HEART Score Troponin: Troponin T < 0.010 ng/mL (0.00-0.029) 05/27/20 23:39 Results - Labs CBC & Chem 7: 05/30/20 04:34 05/29/20 08:07 Labs: Laboratory Last Values WBC 9.0 K/mm3 (4.5-11.0) 05/29/20 08:07 RBC 2.43 M/mm3 (3.65-5.03) L 05/29/20 08:07 Hgb 8.4 gm/dl (10.1-14.3) L 05/30/20 04:34 Hct 25.9 % (30.3-42.9) L 05/30/20 04:34 MCV 83 fl (79-97) 05/29/20 08:07 MCH 26 pg (28-32) L 05/29/20 08:07 MCHC 32 % (30-34) 05/29/20 08:07 RDW 18.4 % (13.2-15.2) H 05/29/20 08:07 Plt Count 409 K/mm3 (140-440) 05/29/20 08:07 Lymph % (Auto) 14.7 % (13.4-35.0) 05/29/20 08:07 [place] % (Auto) 9.7 % (0.0-7.3) H 05/29/20 08:07 Eos % (Auto) 3.6 % (0.0-4.3) 05/29/20 08:07 Baso % (Auto) 0.9 % (0.0-1.8) 05/29/20 08:07 Lymph # (Auto) 1.3 K/mm3 (1.2-5.4) 05/29/20 08:07 [place] # (Auto) 0.9 K/mm3 (0.0-0.8) H 05/29/20 08:07 Eos # (Auto) 0.3 K/mm3 (0.0-0.4) 05/29/20 08:07 Baso # (Auto) 0.1 K/mm3 (0.0-0.1) 05/29/20 08:07 Seg Neutrophils % 71.1 % (40.0-70.0) H 05/29/20 08:07 Seg Neutrophils # 6.4 K/mm3 (1.8-7.7) 05/29/20 08:07 PT 16.5 Sec. (12.2-14.9) H 05/28/20 08:38 INR 1.30 (0.87-1.13) H 05/28/20 08:38 Sodium 138 mmol/L (137-145) 05/29/20 08:07 Potassium 3.9 mmol/L (3.6-5.0) 05/29/20 08:07 Chloride 102.0 mmol/L (98-107) 05/29/20 08:07 Carbon Dioxide 30 mmol/L (22-30) 05/29/20 08:07 Anion Gap 10 mmol/L 05/29/20 08:07 BUN 18 mg/dL (7-17) H 05/29/20 08:07 Creatinine 1.1 mg/dL (0.6-1.2) 05/29/20 08:07 Estimated GFR > 60 ml/min 05/29/20 08:07 BUN/Creatinine Ratio 16 % 05/29/20 08:07 Glucose 110 mg/dL (65-100) H 05/29/20 08:07 Lactic Acid 1.70 mmol/L (0.7-2.0) 05/27/20 17:48 Calcium 8.4 mg/dL (8.4-10.2) 05/29/20 08:07 Magnesium 2.10 mg/dL (1.7-2.3) 05/29/20 08:07 Total Bilirubin 0.60 mg/dL (0.1-1.2) 05/29/20 08:07 AST 6 units/L (5-40) 05/29/20 08:07 ALT < 5 units/L (7-56) L 05/29/20 08:07 Alkaline Phosphatase 98 units/L (35-129) 05/29/20 08:07 Troponin T < 0.010 ng/mL (0.00-0.029) 05/27/20 23:39 Total Protein 6.1 g/dL (6.3-8.2) L 05/29/20 08:07 Albumin 2.2 g/dL (3.9-5) L 05/29/20 08:07 Albumin/Globulin Ratio 0.6 % 05/29/20 08:07 Prealbumin 0.064 g/L (0.200-0.400) L 05/28/20 10:05 Vancomycin Trough 22.0 ug/mL (5.0-20.0) H 05/29/20 08:07 Blood Type AB POSITIVE 05/28/20 11:00 Antibody Screen Negative 05/28/20 11:00 Crossmatch See Detail 05/28/20 11:00 Microbiology: Microbiology 05/27/20 17:48 Peripheral/Venous Blood Culture - Preliminary NO GROWTH AFTER 48 HOURS 05/27/20 17:48 Peripheral/Venous Blood Culture - Preliminary NO GROWTH AFTER 48 HOURS Zamora/IV: Voiding Method External Female Catheter IV Catheter Type [Left INT / Saline Lock Antecubital] IV Catheter Type [Right INT / Saline Lock Forearm] Active Medications - Current Medications Current Medications: Generic Name Dose Route Start Last Admin Trade Name Freq PRN Reason Stop Dose Admin Acetaminophen 650 mg 05/27/20 19:19 Tylenol PO Q4H PRN Pain MILD(1-3)/Fever >100.5/TAYLOR Piperacillin Sod/Tazobactam Sod 4.5 gm in 100 mls @ 100 mls/hr 05/28/20 18:00 05/30/20 06:38 Zosyn/Ns 4.5gm/100ml IV 100 mls/hr Q6HR SULAIMAN Administration Vancomycin HCl 1,500 mg/ 530 mls @ 333.333 mls/hr 05/30/20 06:00 05/30/20 07:38 Sodium Chloride IV 333.333 mls/hr Q12H SULAIMAN Administration Ondansetron HCl 4 mg 05/27/20 19:19 Zofran IV Q8H PRN Nausea And Vomiting Oxycodone/Acetaminophen 1 tab 05/28/20 13:35 05/30/20 01:32 Percocet 5/325 PO 1 tab Q6H PRN Administration Pain, Moderate (4-6) Sodium Chloride 10 ml 05/27/20 22:00 05/30/20 01:34 Sodium Chloride Flush Syringe 10 Ml IV 10 ml BID SULAIMAN Administration Sodium Chloride 10 ml 05/27/20 19:19 Sodium Chloride Flush Syringe 10 Ml IV PRN PRN LINE FLUSH Sodium Hypochlorite 1 applic 05/28/20 10:00 05/30/20 00:48 Dakin's Half Strength TP 1 1000units BID SULAIMAN Administration Nutrition/Malnutrition Assess - Dietary Evaluation Nutrition/Malnutrition Findings: Nutrition Notes Start: 05/28/20 10:32 Freq: Status: Active Protocol: Document 05/28/20 10:32 LM (Rec: 05/28/20 10:52 LM [id number]) Nutrition Notes Need for Assessment generated from: MD Order Initial or Follow up Assessment Current Diagnosis COPD,Hypertension,Heart Failure Other Pertinent Diagnosis SIRS, lymphedema, OA, Afib, R leg and R/L buttock wounds Current Diet Cardiac Labs/Tests Reviewed Pertinent Medications Reviewed Height 5 ft 6 in Weight 258.638 kg [place] Body Weight (kg) 59.09 BMI 92.0 Weight Status Morbidly Obese Subjective/Other Information MD consult for diet education on heart healthy diet and protein sources/supplements and malnutrition. Per MD report, pt has been eating only fruits and vegetables and no protein. Pt did not answer phone. Pt with no wt loss per chart from 03/10/19. Burn Absent Trauma Absent Minimum of two criteria No physical signs of malnutrition #1 Nutrition Diagnosis Increased nutrient needs ( specify in comment below) Comments: Protein Etiology Wound healing As Evidenced by Signs and Symptoms Pt with R leg and R/L buttock wounds Is patient on ventilator? No Is Patient Ambulatory and/or Out of Bed No REE-([facility]-confined to bed) 3828.120 Kcal/Kg value to use for calculation 7 Approximate Energy Requirements Using 1810 kcal/Kg Calculation Used for Recommendations Kcal/kg Additional Notes Protein: 74-89g (1.25-1.5g/kg using IBW 59kg) Fluid: 1ml/kcal Nutrition Intervention Change Diet Order: Continue Goal #1 Meet at least 80% of energy and protein needs Goal #2 Wound healing Anticipated Discharge Needs: Cardiac with adequate protein Follow-Up By: 05/30/20 Additional Comments F/U for intakes, ONS needs, diet education
[2020-05-30] MEDS ORDERED: DOCUSATE SODIUM 100 MG CAP PO ONE (21:49)
[2020-05-31] MEDS: VANCOMYCIN 1,500 MG in SODIUM CHLORIDE 0.9% 500 ML 500 ML IV SCH ×2 (05:03→18:42)
[2020-05-31] MEDS: PIPERACIL/TAZOBACTA 4.5/NS 100 4.5 GM/100 ML VIAL IV SCH ×3 (05:03→18:31)
[2020-05-31] MEDS ORDERED: LIDOCAINE (4%) 40 MG/ML TOPICAL SOLN 50 ML BOTTLE TP ONE (09:57)
[2020-05-31] MEDS: SODIUM HYPOCHLORITE, DAKIN'S 1/2 STRENGTH (0.25%) 473 ML TOPICAL SOLN TP SCH ×2 (10:02→22:00)
--- NOTE | 2020-05-31 11:03 | Procedure Note ---
Date of procedure: 05/31/20 Pre-op diagnosis: infected right medial thigh wound Post-op diagnosis: same Procedure: excisional debridement right thigh wound Findings: Consent obtained and witnessed by nursing. Timeout performed with self pay representative present. 4% topical lidocaine was applied to the wound for several minutes. The wound was then cleansed with Betadine. A sharp excisional debridement was then performed of all thick slough and necrotic tissue using forceps, 15 blade, curette. There was minimal bleeding which was controlled with pressure. The dissection was carried down to the level of the subcutaneous tissue. There was minimal slough on the wound bed, with the majority of the wound bed with red tissue. Pre-debridement measurement: 13 x 16 x 2 cm Post debridement measurement: 13 x 16 x 2.1 cm The patient tolerated the procedure well. All sharps were disposed of appropriately. A dressing was applied. Anesthesia: local Surgeon: RENETTA POWELL Estimated blood loss: minimal Pathology: none Condition: stable Disposition: no change
[2020-05-31] MEDS: oxyCODONE /ACETAMINOPHEN 5-325MG TAB PO PRN ×2 (11:47→22:52)
[2020-05-31] MEDS ORDERED: MAGNESIUM HYDROXIDE (MOM) ORAL LIQD UDC PO NR (14:09)
--- NOTE | 2020-05-31 15:32 | Progress Note ---
Assessment and Plan Assessment and plan: --Right medial thigh infected wound: Current Visit: Yes Status: Acute . Plan to address problem: Excisional debridement right medial thigh wound, 05/31/2020 done by surgeon , patient tolerated the procedure Continue outpatient wound care Continue Vanco Zosyn --Severe anemia: Hb 6.8-5.6-8.4 Current Visit: Yes Status: Acute . Plan to address problem: Patient received total 4 units of PRBC Hb improved from 5.6-8.4 Monitor H&H and transfuse additional as needed --Multiple pressure ulcers infected right thigh wound; Current Visit: Yes Status: Acute . Plan to address problem: IV antibiotics Vanco Zosyn, wound care, follow cultures s/p additional debridement right thigh wound today per Dr. Aguirre f/u Outpatient wound clinic upon discharge nutrition consult --Systemic inflammatory response syndrome Current Visit: Yes Status: Acute Plan to address problem: CBC, CMP, urinalysis, IV antibiotic therapy, suspected secondary cellulitis, supportive care. Wound care consulted -- Cellulitis/multiple decubitus/pressure ulcers Current Visit: Yes Status: Acute Plan to address problem: Continue IV Vanco and Zosyn antibiotic therapy, wound care Status post surgical debridement --Severe protein calorie malnutrition/hypoalbuminemia Current Visit: Yes Status: Acute Plan to address problem: nutrition supplements, nutrition consult --Atrial fibrillation Current Visit: Yes Status: Acute Plan to address problem: Continue current cardiac medications, Surgery, stopped Eliquis pending surgical debridement Closely monitor -- CHF (congestive heart failure) 15 to 20% Current Visit: Yes Status: Acute Plan to address problem: Strict I's/O, monitor urine output every shift, daily weight, afterload reduction, continue medical management. No acute decompensation at this time --Morbid obesity; BMI 92.0 Current Visit: No Status: Chronic Plan to address problem: -- Obesity hypoventilation syndrome Current Visit: Yes Status: Acute Plan to address problem: Supplemental oxygen, pulse oximetry, nebulizer therapy, noninvasive positive pressure ventilation as clinically indicated, pulmonary toilet, out of bed to chair 3 times daily and as needed --HTN (hypertension) Current Visit: No Status: Chronic Plan to address problem: Monitor blood pressure every shift, continue medical management. --DVT prophylaxis Current Visit: Yes Status: Acute Plan to address problem: Eliquis on hold, may resume tomorrow per surgery Closely monitor the patient and adjust the management as needed Discussed with , surgeon DC planning per case management; Possible discharge tomorrow if stable Plan of care reviewed with the patient and her nurse History Interval history: Patient underwent excisional debridement right medial thigh wound, done by abdias Zhang Patient tolerated the procedure well Patient complains of some pain in the thigh Alert awake oriented Vital signs noted Hospitalist Physical - Constitutional Vitals: Temp Pulse Resp BP Pulse Ox 98.1 F 72 20 109/57 98 05/31/20 05:48 05/31/20 05:48 05/31/20 11:47 05/31/20 05:48 05/31/20 08:46 General appearance: Present: mild distress, well-nourished, obese (Morbidly) - EENT Eyes: Present: PERRL, EOM intact - Neck Neck: Present: supple, normal ROM - Respiratory Respiratory effort: normal Respiratory: bilateral: diminished, rales, negative: rhonchi, wheezing - Cardiovascular Rhythm: regular Heart Sounds: Present: S1 & S2 - Extremities Extremities: no ischemia Extremity abnormal: edema, other (thigh dressing in place) - Abdominal General gastrointestinal: soft, non-tender, non-distended - Integumentary Integumentary: Present: clear, warm - Psychiatric Psychiatric: appropriate mood/affect, cooperative - Neurologic Neurologic: moves all extremities HEART Score - HEART Score Troponin: Troponin T < 0.010 ng/mL (0.00-0.029) 05/27/20 23:39 Results - Labs CBC & Chem 7: 05/30/20 04:34 05/29/20 08:07 Labs: Laboratory Last Values WBC 9.0 K/mm3 (4.5-11.0) 05/29/20 08:07 RBC 2.43 M/mm3 (3.65-5.03) L 05/29/20 08:07 Hgb 8.4 gm/dl (10.1-14.3) L 05/30/20 04:34 Hct 25.9 % (30.3-42.9) L 05/30/20 04:34 MCV 83 fl (79-97) 05/29/20 08:07 MCH 26 pg (28-32) L 05/29/20 08:07 MCHC 32 % (30-34) 05/29/20 08:07 RDW 18.4 % (13.2-15.2) H 05/29/20 08:07 Plt Count 409 K/mm3 (140-440) 05/29/20 08:07 Lymph % (Auto) 14.7 % (13.4-35.0) 05/29/20 08:07 Isabela % (Auto) 9.7 % (0.0-7.3) H 05/29/20 08:07 Eos % (Auto) 3.6 % (0.0-4.3) 05/29/20 08:07 Baso % (Auto) 0.9 % (0.0-1.8) 05/29/20 08:07 Lymph # (Auto) 1.3 K/mm3 (1.2-5.4) 05/29/20 08:07 Isabel[place] # (Auto) 0.9 K/mm3 (0.0-0.8) H 05/29/20 08:07 Eos # (Auto) 0.3 K/mm3 (0.0-0.4) 05/29/20 08:07 Baso # (Auto) 0.1 K/mm3 (0.0-0.1) 05/29/20 08:07 Seg Neutrophils % 71.1 % (40.0-70.0) H 05/29/20 08:07 Seg Neutrophils # 6.4 K/mm3 (1.8-7.7) 05/29/20 08:07 PT 16.5 Sec. (12.2-14.9) H 05/28/20 08:38 INR 1.30 (0.87-1.13) H 05/28/20 08:38 Sodium 138 mmol/L (137-145) 05/29/20 08:07 Potassium 3.9 mmol/L (3.6-5.0) 05/29/20 08:07 Chloride 102.0 mmol/L (98-107) 05/29/20 08:07 Carbon Dioxide 30 mmol/L (22-30) 05/29/20 08:07 Anion Gap 10 mmol/L 05/29/20 08:07 BUN 18 mg/dL (7-17) H 05/29/20 08:07 Creatinine 1.1 mg/dL (0.6-1.2) 05/29/20 08:07 Estimated GFR > 60 ml/min 05/29/20 08:07 BUN/Creatinine Ratio 16 % 05/29/20 08:07 Glucose 110 mg/dL (65-100) H 05/29/20 08:07 Lactic Acid 1.70 mmol/L (0.7-2.0) 05/27/20 17:48 Calcium 8.4 mg/dL (8.4-10.2) 05/29/20 08:07 Magnesium 2.10 mg/dL (1.7-2.3) 05/29/20 08:07 Total Bilirubin 0.60 mg/dL (0.1-1.2) 05/29/20 08:07 AST 6 units/L (5-40) 05/29/20 08:07 ALT < 5 units/L (7-56) L 05/29/20 08:07 Alkaline Phosphatase 98 units/L (35-129) 05/29/20 08:07 Troponin T < 0.010 ng/mL (0.00-0.029) 05/27/20 23:39 Total Protein 6.1 g/dL (6.3-8.2) L 05/29/20 08:07 Albumin 2.2 g/dL (3.9-5) L 05/29/20 08:07 Albumin/Globulin Ratio 0.6 % 05/29/20 08:07 Prealbumin 0.064 g/L (0.200-0.400) L 05/28/20 10:05 Vancomycin Trough 22.0 ug/mL (5.0-20.0) H 05/29/20 08:07 Blood Type AB POSITIVE 05/28/20 11:00 Antibody Screen Negative 05/28/20 11:00 Crossmatch See Detail 05/28/20 11:00 Microbiology: Microbiology 05/28/20 09:24 Leg - Right Wound Culture - Preliminary 05/27/20 17:48 Peripheral/Venous Blood Culture - Preliminary NO GROWTH AFTER 72 HOURS 05/27/20 17:48 Peripheral/Venous Blood Culture - Preliminary NO GROWTH AFTER 72 HOURS Zamora/IV: Voiding Method External Female Catheter IV Catheter Type [Left INT / Saline Lock Antecubital] IV Catheter Type [Right INT / Saline Lock Forearm] Active Medications - Current Medications Current Medications: Generic Name Dose Route Start Last Admin Trade Name Freq PRN Reason Stop Dose Admin Acetaminophen 650 mg 05/27/20 19:19 Tylenol PO Q4H PRN Pain MILD(1-3)/Fever >100.5/TAYLOR Piperacillin Sod/Tazobactam Sod 4.5 gm in 100 mls @ 100 mls/hr 05/28/20 18:00 05/31/20 11:47 Zosyn/Ns 4.5gm/100ml IV 100 mls/hr Q6HR SULAIMAN Administration Vancomycin HCl 1,500 mg/ 530 mls @ 333.333 mls/hr 05/30/20 06:00 05/31/20 05:03 Sodium Chloride IV 333.333 mls/hr Q12H SULAIMAN Administration Ondansetron HCl 4 mg 05/27/20 19:19 Zofran IV Q8H PRN Nausea And Vomiting Oxycodone/Acetaminophen 1 tab 05/28/20 13:35 05/31/20 11:47 Percocet 5/325 PO 1 tab Q6H PRN Administration Pain, Moderate (4-6) Sodium Chloride 10 ml 05/27/20 22:00 05/31/20 10:01 Sodium Chloride Flush Syringe 10 Ml IV 10 ml BID SULAIMAN Administration Sodium Chloride 10 ml 05/27/20 19:19 Sodium Chloride Flush Syringe 10 Ml IV PRN PRN LINE FLUSH Sodium Hypochlorite 1 applic 05/28/20 10:00 05/31/20 10:02 Dakin's Half Strength TP 1 1000units BID SULAIMAN Administration Nutrition/Malnutrition Assess - Dietary Evaluation Nutrition/Malnutrition Findings: Nutrition Notes Start: 05/28/20 10:32 Princess: Status: Active Protocol: Document 05/30/20 11:35 (Rec: 05/30/20 13:51 [id number]) Nutrition Notes Need for Assessment generated from: MD Order,Education Initial or Follow up Reassessment Current Diagnosis COPD,Hypertension,Heart Failure Other Pertinent Diagnosis SIRS, lymphedema, OA, Afib, R leg and R/L buttock wounds Current Diet Cardiac Labs/Tests Reviewed Pertinent Medications Reviewed Height 5 ft 6 in Weight 259 kg [place] Body Weight (kg) 59.09 BMI 92.1 Weight Status Morbidly Obese Subjective/Other Information MD order for ONS. FU for diet edu and intakes. Pt eating 45% of meals due to food prefences. Pt was drinking ONS at time of visit and likes it . Percent of energy/protein needs met: 52%/50% Burn Absent Trauma Absent Minimum of two criteria No physical signs of malnutrition #3 Nutrition Diagnosis Food and nutrition-related knowledge deficit Etiology No prior education As Evidenced by Signs and Symptoms pt had questions about healthy meals #2 Nutrition Diagnosis Inadequate oral intake Etiology food prefrences As Evidenced by Signs and Symptoms pt meeting 50% of needs #1 Nutrition Diagnosis Increased nutrient needs ( specify in comment below) Comments: Protein Diagnosis Progress(for reassessment Continues documentation) Is patient on ventilator? No Is Patient Ambulatory and/or Out of Bed No REE-([place]-[facility]. Jeor-confined to bed) 3832.464 Kcal/Kg value to use for calculation 7 Approximate Energy Requirements Using 1813 kcal/Kg Calculation Used for Recommendations Kcal/kg Additional Notes Protein: 74-89g (1.25-1.5g/kg using IBW 59kg) Fluid: 1ml/kcal Nutrition Intervention Change Diet Order: Continue Add Supplement/Snack (indicate name/kcal Ensure HP Vanilla daily /protein ) Provides kCal: 160 Provides Protein (gm) 16 Teaching Recipient Patient Learning Readiness Good Teaching Methods Discussion,Handout Response to Teaching Verbalize understanding Education Handouts Provided Planning Healthy Meals Barriers to Learning No Barriers RD phone number provided Yes Patient aware of follow up options Yes Goal #1 Meet at least 80% of energy and protein needs Goal #2 Wound healing Anticipated Discharge Needs: Cardiac with adequate protein Follow-Up By: 06/04/20 Additional Comments FU for intakes and ONS tolerance
--- NOTE | 2020-05-31 15:56 | Event Note ---
Date: 05/31/20 55 yo F with 1. infected right medial thigh wound 2. RLE lymphedema 3. morbid obesity BMI 92 4. immobility/bedbound 5. Afib on eliquis 6. CHF EF 15% 7. Anemia 8. Protein calorie malnutrition -albumin 2.2, prealbumin 0.064 Patient underwent bedside debridement of right thigh wound today and tolerated procedure well with no complications. Plan: 1. Pt with HHC already established - will dc with instructions to apply calcium alginate to entire wound bed, cover with dry 4x4 gauze, ABD pads and tape. Dressing changes to be done three times a week. 2. prelim micro on wound cultures - gram neg rods. Final cultures pending 3. continue abx. May dc on cipro, bactrim [id number]. Will follow up final results as outpatient and adjust abx if needed 4. continue protein supplements 2-3 times per day 5. Right leg elevation 6. may resume eliquis tomorrow if H/H remains stable 7. OK to dc from surgery standpoint. Upon discussion with patient, she states outpatient [facility] follow up will not be possible as she is unable to be transported out of the house. She already has HHC and home pilot supervisor established to check on wound. Will s/o. Thank you, please call with questions. Discussed with Dr. Carrasco.
[2020-05-31] MEDS ORDERED: FUROSEMIDE 40 MG/4 ML INJ IV NR (15:58)
[2020-05-31] MEDS ORDERED: MAGNESIUM HYDROXIDE (MOM) ORAL LIQD UDC PO PRN (16:05)
[2020-06-01 05:44] LABS: Hematocrit 27.3 % (30.3-42.9); Hemoglobin 8.9 gm/dl (10.1-14.3)
[2020-06-01] MEDS: VANCOMYCIN 1,500 MG in SODIUM CHLORIDE 0.9% 500 ML 500 ML IV SCH (06:00)
[2020-06-01] MEDS: PIPERACIL/TAZOBACTA 4.5/NS 100 4.5 GM/100 ML VIAL IV SCH ×2 (06:00)
--- NOTE | 2020-06-01 07:37 | Discharge Summary ---
Providers - Providers Date of Admission: 05/30/20 10:14 Date of discharge: 06/01/20 Attending physician: KENDRICK MORELOS 05/27/20 18:00 Consult to Physician [CONS] Stat Comment: Consulting Provider: RENETTA POWELL Physician Instructions: Reason For Exam: open wound 05/27/20 20:05 Consult to Wound/ET Nurse [CONS] Routine Reason For Exam: wound eval 05/28/20 09:44 Consult to Dietitian/Nutrition [CONS] Routine Physician Instructions: Reason For Exam: Reason for Consult: Diet education 05/28/20 16:26 Consult to Dietitian/Nutrition [CONS] Routine Physician Instructions: Reason For Exam: Reason for Consult: Malnutrition Primary care physician: [employer]LECT[employer] Hospitalization Condition: Stable Hospital course: 55 YO Female with Super MO, Obesity Hypoventilation Syndrome, HTN, KURTIS noncompliant with CPAP, Lymphedema, Debility, OA, COPD, Systolic CHF(EF 15%), Atrial Fib on Therapeutic Anticoatulation, presents to ED for evaluation. Pt states that she has experienced pain, redness, increased drainage, and foul smelling discharge from her right leg wound over the past 2 weeks with persistently worsening symptoms over the past 1 week. EMS was notified and upon arrival the patient was found to be in distress and subsequently transported to [facility] for further care and evaluation. Patient seen and evaluated in the em ergency department. Lab and imaging studies reviewed. Patient found to have symptoms consistent with right lower extremity cellulitis, systemic inflammatory response syndrome. Patient also reported initial symptoms of chest wall discomfort which resolved prior to transport to [facility]. Patient denies fever, chills, chest pain, palpitations, productive cough, recent ill contacts, or known exposure to COVID-19. Surgery team consulted in ED. Patient placed in observation status and initiated on IV antibiotic therapy due to increased risk of decompensation. Discharge diagnosis and management: --Right medial thigh infected wound: Current Visit: Yes Status: Acute . Plan to address problem: Excisional debridement right medial thigh wound, 05/31/2020 done by surgeon , patient tolerated the procedure Continue outpatient wound care Continue Vanco Zosyn --Severe anemia: Hb 6.8-5.6-8.4 Current Visit: Yes Status: Acute . Plan to address problem: Patient received total 4 units of PRBC Hb improved from 5.6-8.4 Monitor H&H and transfuse additional as needed --Multiple pressure ulcers infected right thigh wound; Current Visit: Yes Status: Acute . Plan to address problem: IV antibiotics Vanco Zosyn, wound care, follow cultures s/p additional debridement right thigh wound today per Dr. Powell f/u Outpatient wound clinic upon discharge nutrition consult --Systemic inflammatory response syndrome Current Visit: Yes Status: Acute Plan to address problem: CBC, CMP, urinalysis, IV antibiotic therapy, suspected secondary cellulitis, supportive care. Wound care consulted --Sepsis due to cellulitis/multiple decubitus/pressure ulcers Current Visit: Yes Status: Acute Plan to address problem: Continue IV Vanco and Zosyn antibiotic therapy, wound care Status post surgical debridement --Severe protein calorie malnutrition/hypoalbuminemia Current Visit: Yes Status: Acute Plan to address problem: nutrition supplements, nutrition consult --Atrial fibrillation Current Visit: Yes Status: Acute Plan to address problem: Continue current cardiac medications, Surgery, stopped Eliquis pending surgical debridement Closely monitor --Acute on chronic systolic CHF (congestive heart failure) 15 to 20% Current Visit: Yes Status: Acute Plan to address problem: Strict I's/O, monitor urine output every shift, daily weight, afterload reduction, continue medical management. No acute decompensation at this time --Morbid obesity; BMI 92.0 Current Visit: No Status: Chronic Plan to address problem: -- Obesity hypoventilation syndrome Current Visit: Yes Status: Acute Plan to address problem: Supplemental oxygen, pulse oximetry, nebulizer therapy, noninvasive positive pressure ventilation as clinically indicated, pulmonary toilet, out of bed to chair 3 times daily and as needed --HTN (hypertension) Current Visit: No Status: Chronic Plan to address problem: Monitor blood pressure every shift, continue medical management. Disposition: [id number]/[place]-06 HOME UNDER HOME [facility] Time spent for discharge: 32 min Core Measure Documentation - Palliative Care Palliative Care/ Comfort Measures: Not Applicable - Core Measures Any of the following diagnoses?: none Exam - Constitutional Vitals: Temp Pulse Resp BP Pulse Ox 97.5 F L 68 20 143/69 100 06/01/20 05:37 06/01/20 05:37 06/01/20 05:37 06/01/20 05:37 06/01/20 05:37 General appearance: Present: no acute distress, well-nourished, obese (Morbidly obese) - EENT Eyes: Present: PERRL, EOM intact - Neck Neck: Present: supple - Respiratory Respiratory effort: normal Respiratory: bilateral: diminished, negative: rales, rhonchi, wheezing - Cardiovascular Rhythm: regular Heart Sounds: Present: S1 & S2 - Extremities Extremities: abnormal (Surgical dressing in place) - Abdominal General gastrointestinal: Present: soft, non-tender, non-distended, normal bowel sounds - Integumentary Integumentary: Present: clear, warm - Musculoskeletal Musculoskeletal: strength equal bilaterally - Psychiatric Psychiatric: memory intact - Neurologic Neurologic: moves all extremities Plan Activity: advance as tolerated, fall precautions Wound: per your surgeon's advice, per wound nurse instructions Additional Instructions: Wound care instructions: to apply calcium alginate to entire wound bed, cover with dry 4x4 gauze, ABD pads and tape. Dressing changes to be done three times a week. Surgery advised cipro and bactrim [id number] total. Follow up surgery outpatient and adjust abx if needed. continue protein supplements 2-3 times per day. Right leg elevation. 7. OK to dc from surgery standpoint. Upon discussion with patient, she states outpatient [facility] follow up will not be possible as she is unable to be transported out of the house. She already has C and home broomcorn grader established to check on wound. Follow up with: PRIMARY CARE, [Primary Care Provider] - 3-5 Days RENETTA POWELL DO [Staff Physician] - 14 Days Prescriptions: Sulfamethoxazole/Trimethoprim [Bactrim DS TAB] 1 each PO BID #20 tablet Ciprofloxacin HCl [Ciprofloxacin TAB] 500 mg PO Q12HR #20 tab Ferrous Sulfate [Feosol 325 MG tab] 325 mg PO BID #60 tablet oxyCODONE /ACETAMINOPHEN [Percocet 5/325 mg] 1 tab PO Q6H PRN #20 tablet PRN Reason: Pain, Moderate (4-6) Collagenase (Nf) [Santyl (Nf)] 90 gm TP DAILY #1 tube
[2020-06-01 13:01] VITALS: BP 133/69
[2020-06-01] MEDS: SODIUM HYPOCHLORITE, DAKIN'S 1/2 STRENGTH (0.25%) 473 ML TOPICAL SOLN TP SCH (15:58)
== END 2020-06-01 17:53 | disposition home health service (06) | DRG 853 ==
LOC: ED 15:29 → 3A 19:19 → OBSVTOIN 05-30 10:14
PROVIDERS: ADMIT Internal Medicine; ATTEND Internal Medicine
PROC: 30233N1 Transfusion of Nonautologous Red Blood Cells into Peripheral Vein, Percutaneous Approach (ICD-10-PCS; 2020-05-29)
PROC: 0JBL0ZZ Excision of Right Upper Leg Subcutaneous Tissue and Fascia, Open Approach (ICD-10-PCS; principal; 2020-05-30)
DX: A41.9 Sepsis, unspecified organism (principal); E43 Unspecified severe protein-calorie malnutrition; I50.23 Acute on chronic systolic (congestive) heart failure; L03.115 Cellulitis of right lower limb; Z68.45 Body mass index [BMI] 70 or greater, adult; E66.2 Morbid (severe) obesity with alveolar hypoventilation; D64.9 Anemia, unspecified; L89.320 Pressure ulcer of left buttock, unstageable; I89.0 Lymphedema, not elsewhere classified; L89.310 Pressure ulcer of right buttock, unstageable; M19.90 Unspecified osteoarthritis, unspecified site; I11.0 Hypertensive heart disease with heart failure; Z79.01 Long term (current) use of anticoagulants; Z79.899 Other long term (current) drug therapy; Z82.49 Family history of ischemic heart disease and other diseases of the circulatory system; Z74.01 Bed confinement status
CPT/HCPCS: 36415; 71045; 80048; 80053; 80202; 82040; 82140; 83735; 84134; 84484; 85014; 85018; 85025; 85610; 86850; 86900; 86901; 86920; 87040; 87076; 87116; 87186; 93005; 94760; 96365; 96367; 96372; 96375; G0378; A6260; J0692; J1940; J2270; J2543; J3370; J7040; P9016